=== PATIENT | female | born 1965 | race Two or more races ===

== ENCOUNTER 2017-06-18 00:22 | Inpatient (IN) | payer MEDICAID ==
[~2017-06-18] VITALS: Ht 154.9 cm; Wt 57.3 kg
[2017-06-18 04:49] LABS: Basophils # (auto) 0 uL; Basophils % (auto) 0.3 % (0.0-2.0); Eosinophils # (auto) 0 uL; Eosinophils % (auto) 0.1 % (0.0-7.0); Hemoglobin 10.3 g/dL (13.5-17.5); Lymphocytes # (auto) 0.6 uL; Monocytes # (auto) 0.4 uL; Nucleated Red Blood Cells % 0.1 %
[2017-06-18 04:53] LABS: Hematocrit 32.6 % (41.0-53.0); Lymphocytes % (auto) 7.6 % (10.0-50.0); Mean Corpuscular Hgb Conc. 31.7 g/dL (32.0-36.0); Mean Corpuscular Volume 77.6 fL (80.0-100.0); Monocytes % (auto) 5.2 % (0.0-12.0); Neutrophils # (auto) 6.5 uL; Neutrophils % (auto) 86.8 % (37.0-80.0); Platelet Count (auto) 316 10^3/uL (140-450); White Blood Cell 7.4 10^3/uL (4.4-10.8)
[2017-06-18 04:54] LABS: Mean Corpuscular Hemoglobin 25.2 pg (28.0-32.0); Red Cell Distribution Width 25.6 % (11.8-14.3)
[2017-06-18 05:10] LABS: Albumin 3.3 g/dL (3.4-5.0); Calcium 8.8 mg/dL (8.5-10.1); Magnesium 2.4 mg/dL (1.6-2.6); Potassium 3.5 mmol/L (3.5-5.1)
[2017-06-18 05:12] LABS: BUN/Creatinine Ratio 32.7
[2017-06-18 05:19] LABS: Bilirubin, Total 0.3 mg/dL (0.2-1.0); Total Protein 8.4 g/dL (6.4-8.2)
[2017-06-18] MEDS ORDERED: SODIUM CHLORIDE 0.9% 1,000 ML IVB ONE (06:50)
[2017-06-18] MEDS ORDERED: metroNIDAZOLE 500MG/100ML 100 ML IV ONE (07:00)
[2017-06-18] MEDS ORDERED: MORPHINE SULFATE 4 MG/ML SYR/VIAL IV ONE (07:00)
[2017-06-18] MEDS ORDERED: PROMETHAZINE HCL 25 MG/ML 1ML IV PRN (07:00)
[2017-06-18] MEDS ORDERED: cefTRIAXone 1GM/10ml StH20 or NS KIT IVpush IV ONE (07:00)
[2017-06-18] MEDS ORDERED: IOHEXOL 300 MG/ML 100ML BOTTLE IJ ONE (07:36)
[2017-06-18 07:58] LABS: INR 1.06 (0.9-1.15); Partial Thromboplastin Time 26.4 sec (22.64-33.71); Prothrombin Time 11.6 sec (9.37-12.3)
[2017-06-18 08:04] LABS: Urine Bacteria FEW /hpf (None Seen); Urine Blood TRACE /uL (Negative); Urine Hyaline Cast MOD /lpf (0 - 2); Urine Mucus FEW (None Seen); Urine Specific Gravity 1.028 (1.001-1.035); Urine WBC 11 /hpf (0 - 5)
[2017-06-18] MEDS ORDERED: ENALAPRILAT 1.25 MG/ML-1ML VIAL IV PRN (10:15)
[2017-06-18] MEDS ORDERED: SODIUM CHLORIDE 0.9% 1,000 ML IV SCH (10:17)
[2017-06-18] MEDS ORDERED: PANTOPRAZOLE 40 MG/10 ML VIAL IV ONE (10:30)
[2017-06-18] MEDS ORDERED: LIDOCAINE VISCOUS 2% 15ML UD PO ONE (10:30)
[2017-06-18] MEDS ORDERED: ONDANSETRON HCL 4 MG/2 ML VIAL IV PRN (10:30)
[2017-06-18] MEDS ORDERED: MORPHINE SULFATE 4 MG/ML SYR/VIAL IV PRN ×2 (10:30)
[2017-06-18] MEDS ORDERED: FAMOTIDINE (10MG/ML) 2ML VL IV ONE (10:30)
[2017-06-18] MEDS ORDERED: NITROGLYCERIN 0.4 MG SL TAB SL PRN (10:30)
[2017-06-18] MEDS ORDERED: GASTROGRAFIN 120 ML SOL ONE (11:09)
[2017-06-18] MEDS ORDERED: METF-370 PO (11:48)
[2017-06-18] MEDS: InsuLIN REG 1unit/0.01ml Soln (100units/ml) SC SCH ×2 (12:00→17:14)
[2017-06-18] MEDS: DEXTROSE (50%) 50ML SYRG IV PRN ×2 (12:14→17:13)
[2017-06-18] MEDS: ACCU-CHEK COMFORT CURVE STRIP VI SCH ×2 (12:22→17:14)
[2017-06-18] MEDS ORDERED: SODIUM CHLORIDE 0.9% 1,000 ML IV ONE (12:45)
[2017-06-18] MEDS ORDERED: D5W/SOD CHLO 0.9% 1,000 ML IV ONE (12:45)
[2017-06-18 13:00] VITALS: BP 88/57
[2017-06-18] MEDS: D5W/SOD CHLO 0.9% 1,000 ML IV SCH (13:15)
[2017-06-18] MEDS: metroNIDAZOLE 500MG/100ML 100 ML IV SCH ×2 (14:25→22:00)
[2017-06-18 16:53] VITALS: BP 95/58
[2017-06-18 22:00] VITALS: BP 88/54
[2017-06-19] VITALS (13 sets, daily range): BP systolic 77–113; BP diastolic 45–74
[2017-06-19] MEDS: ACCU-CHEK COMFORT CURVE STRIP VI SCH ×5 (00:26→23:21)
[2017-06-19] MEDS: DEXTROSE (50%) 50ML SYRG IV PRN ×4 (00:27→23:22)
[2017-06-19] MEDS: D5W/SOD CHLO 0.9% 1,000 ML IV SCH ×2 (01:29→05:20)
[2017-06-19] MEDS: InsuLIN REG 1unit/0.01ml Soln (100units/ml) SC SCH ×5 (06:00→23:22)
[2017-06-19] MEDS: metroNIDAZOLE 500MG/100ML 100 ML IV SCH ×3 (06:17→21:02)
[2017-06-19 06:19] LABS: Basophils # (auto) 0 uL; Basophils % (auto) 0.3 % (0.0-2.0); Eosinophils # (auto) 0.1 uL; Hematocrit 24.6 % (36.0-46.0); Lymphocytes # (auto) 0.3 uL; Monocytes # (auto) 0.2 uL
[2017-06-19 06:22] LABS: Eosinophils % (auto) 2.2 % (0.0-7.0); Hemoglobin 7.6 g/dL (12.2-16.2); Lymphocytes % (auto) 7.3 % (10.0-50.0); Mean Corpuscular Hemoglobin 24.7 pg (28.0-32.0); Mean Corpuscular Hgb Conc. 30.9 g/dL (32.0-36.0); Mean Corpuscular Volume 79.9 fL (80.0-100.0); Neutrophils # (auto) 3.6 uL; Neutrophils % (auto) 85.2 % (37.0-80.0); Platelet Count (auto) 220 10^3/uL (140-450); Red Blood Cells 3.08 10^6/uL (4.0-5.20); White Blood Cell 4.2 10^3/uL (4.4-10.8)
[2017-06-19 06:27] LABS: Red Cell Distribution Width 25.3 % (11.8-14.3)
[2017-06-19 06:29] LABS: Albumin 1.9 g/dL (3.4-5.0); BUN/Creatinine Ratio 25.6; Bilirubin, Total 0.2 mg/dL (0.2-1.0); Calcium 6.7 mg/dL (8.5-10.1); Total Protein 5.8 g/dL (6.4-8.2)
[2017-06-19 06:31] LABS: Potassium 2.6 mmol/L (3.5-5.1)
[2017-06-19] MEDS ORDERED: POTASSIUM CHL 10% (20 MEQ/15ML) 15ml ORAL SOLN GT ONE (07:00)
[2017-06-19] MEDS ORDERED: SOD CHLO IV SCH (08:45)
[2017-06-19] MEDS ORDERED: D5 IV SCH (08:45)
[2017-06-19] MEDS ORDERED: POTASSIUM CHLORIDE IV SCH (08:45)
[2017-06-19 08:46] LABS: Basophils # (auto) 0 uL; Eosinophils # (auto) 0.1 uL; Lymphocytes # (auto) 0.4 uL; Monocytes # (auto) 0.2 uL; White Blood Cell 4.1 10^3/uL (4.4-10.8)
[2017-06-19 08:48] LABS: Basophils % (auto) 0.3 % (0.0-2.0); Eosinophils % (auto) 2.4 % (0.0-7.0); Hematocrit 24.9 % (36.0-46.0); Hemoglobin 7.8 g/dL (12.2-16.2); Lymphocytes % (auto) 8.8 % (10.0-50.0); Mean Corpuscular Hemoglobin 24.7 pg (28.0-32.0); Mean Corpuscular Hgb Conc. 31.5 g/dL (32.0-36.0); Mean Corpuscular Volume 78.4 fL (80.0-100.0); Monocytes % (auto) 4.6 % (0.0-12.0); Neutrophils # (auto) 3.5 uL; Neutrophils % (auto) 83.9 % (37.0-80.0); Nucleated Red Blood Cells % 0.1 %; Platelet Count (auto) 225 10^3/uL (140-450); Red Blood Cells 3.18 10^6/uL (4.0-5.20)
[2017-06-19 08:50] LABS: Red Cell Distribution Width 24.8 % (11.8-14.3)
[2017-06-19 09:06] LABS: Albumin 1.9 g/dL (3.4-5.0); Bilirubin, Total 0.2 mg/dL (0.2-1.0); Calcium 6.7 mg/dL (8.5-10.1); Total Protein 5.9 g/dL (6.4-8.2)
[2017-06-19 09:14] LABS: Potassium 2.7 mmol/L (3.5-5.1)
[2017-06-19] MEDS ORDERED: POTASSIUM CHLORIDE 40 MEQ, LIDOCAINE 1% (LOCAL ANESTH.) 4 ML in SODIUM CHL 0.9% 100 ML IV ONE (09:45)
[2017-06-19] MEDS ORDERED: PANTOPRAZOLE 40 MG/10 ML VIAL IV SCH (10:00)
[2017-06-19] MEDS: cefTRIAXone 1GM/10ml IVPUSH 10 ML IV SCH (10:05)
[2017-06-19] MEDS: FAMOTIDINE (10MG/ML) 2ML VL IV SCH (10:05)
[2017-06-19] MEDS: D5W/SOD CHL 0.45%/KCL 40MEQ 1,000 ML IV SCH (18:48)
[2017-06-19] MEDS: PANTOPRAZOLE 40 MG/10 ML VIAL IV SCH (21:02)
[2017-06-20 01:30] VITALS: BP 105/64
[2017-06-20 04:00] VITALS: BP 102/65
[2017-06-20 05:20] LABS: Basophils # (auto) 0 uL; Eosinophils # (auto) 0.1 uL; Hemoglobin 9.9 g/dL (12.2-16.2); Lymphocytes # (auto) 0.4 uL; Monocytes # (auto) 0.3 uL; Neutrophils # (auto) 2.8 uL; Nucleated Red Blood Cells % 0.1 %; White Blood Cell 3.6 10^3/uL (4.4-10.8)
[2017-06-20 05:22] LABS: Basophils % (auto) 0.5 % (0.0-2.0); Eosinophils % (auto) 3.5 % (0.0-7.0); Hematocrit 30.6 % (36.0-46.0); Lymphocytes % (auto) 11.3 % (10.0-50.0); Mean Corpuscular Hemoglobin 25.8 pg (28.0-32.0); Mean Corpuscular Hgb Conc. 32.3 g/dL (32.0-36.0); Mean Corpuscular Volume 79.8 fL (80.0-100.0); Neutrophils % (auto) 76.7 % (37.0-80.0); Platelet Count (auto) 215 10^3/uL (140-450); Red Blood Cells 3.83 10^6/uL (4.0-5.20)
[2017-06-20 05:27] LABS: Red Cell Distribution Width 22.1 % (11.8-14.3)
[2017-06-20] MEDS: DEXTROSE (50%) 50ML SYRG IV PRN (05:34)
[2017-06-20 05:41] LABS: Albumin 1.9 g/dL (3.4-5.0); BUN/Creatinine Ratio 20.6; Bilirubin, Total 0.4 mg/dL (0.2-1.0); Calcium 7.2 mg/dL (8.5-10.1); Potassium 3.4 mmol/L (3.5-5.1); Total Protein 5.9 g/dL (6.4-8.2)
[2017-06-20] MEDS: D5W/SOD CHL 0.45%/KCL 40MEQ 1,000 ML IV SCH (05:43)
[2017-06-20] MEDS: InsuLIN REG 1unit/0.01ml Soln (100units/ml) SC SCH ×3 (05:45→17:48)
[2017-06-20] MEDS: ACCU-CHEK COMFORT CURVE STRIP VI SCH ×3 (05:45→17:22)
[2017-06-20] MEDS: metroNIDAZOLE 500MG/100ML 100 ML IV SCH ×3 (05:45→21:18)
[2017-06-20 07:30] VITALS: BP 113/70
[2017-06-20] MEDS: FAMOTIDINE (10MG/ML) 2ML VL IV SCH (09:30)
[2017-06-20] MEDS: PANTOPRAZOLE 40 MG/10 ML VIAL IV SCH ×2 (09:30→21:19)
[2017-06-20] MEDS: cefTRIAXone 1GM/10ml IVPUSH 10 ML IV SCH (09:30)
[2017-06-20] MEDS: DEXTROSE 10% 1,000 ML IV SCH (11:14)
[2017-06-20] MEDS: POTASSIUM CHL 10% (20 MEQ/15ML) 15ml ORAL SOLN GT SCH ×2 (11:15→21:18)
[2017-06-20 11:49] VITALS: BP 124/80
[2017-06-20 15:50] VITALS: BP 121/73
[2017-06-20 19:50] VITALS: BP 114/72
[2017-06-21] VITALS: BP 120/76
[2017-06-21] MEDS: DEXTROSE 10% 1,000 ML IV SCH ×3 (02:45→14:22)
[2017-06-21 04:15] VITALS: BP 104/68
[2017-06-21] MEDS: metroNIDAZOLE 500MG/100ML 100 ML IV SCH ×3 (05:54→21:41)
[2017-06-21] MEDS: ACCU-CHEK COMFORT CURVE STRIP VI SCH ×4 (05:54→18:15)
[2017-06-21 05:59] LABS: Basophils # (auto) 0 uL; Eosinophils # (auto) 0.2 uL; Lymphocytes # (auto) 0.6 uL; Monocytes # (auto) 0.3 uL; Neutrophils # (auto) 2.9 uL
[2017-06-21] MEDS: InsuLIN REG 1unit/0.01ml Soln (100units/ml) SC SCH ×4 (06:00→18:00)
[2017-06-21 06:02] LABS: Basophils % (auto) 0.6 % (0.0-2.0); Eosinophils % (auto) 4.2 % (0.0-7.0); Hemoglobin 10.8 g/dL (12.2-16.2); Lymphocytes % (auto) 14.1 % (10.0-50.0); Mean Corpuscular Hemoglobin 25.7 pg (28.0-32.0); Mean Corpuscular Hgb Conc. 31.9 g/dL (32.0-36.0); Mean Corpuscular Volume 80.5 fL (80.0-100.0); Monocytes % (auto) 7.1 % (0.0-12.0); Nucleated Red Blood Cells % 0.1 %; Platelet Count (auto) 190 10^3/uL (140-450); Red Blood Cells 4.22 10^6/uL (4.0-5.20); White Blood Cell 3.9 10^3/uL (4.4-10.8)
[2017-06-21 06:10] LABS: Red Cell Distribution Width 22.5 % (11.8-14.3)
[2017-06-21 06:24] LABS: Albumin 1.9 g/dL (3.4-5.0); BUN/Creatinine Ratio 13.7; Bilirubin, Total 0.2 mg/dL (0.2-1.0); Calcium 7.3 mg/dL (8.5-10.1); Potassium 4.3 mmol/L (3.5-5.1); Total Protein 6.2 g/dL (6.4-8.2)
[2017-06-21 07:30] VITALS: BP 124/74
[2017-06-21] MEDS: FAMOTIDINE (10MG/ML) 2ML VL IV SCH (10:40)
[2017-06-21] MEDS: PANTOPRAZOLE 40 MG/10 ML VIAL IV SCH ×2 (10:40→21:41)
[2017-06-21] MEDS: POTASSIUM CHL 10% (20 MEQ/15ML) 15ml ORAL SOLN GT SCH ×2 (10:41→21:41)
[2017-06-21] MEDS: cefTRIAXone 1GM/10ml IVPUSH 10 ML IV SCH (10:45)
[2017-06-21 12:02] VITALS: BP 120/71
[2017-06-21 16:00] VITALS: BP 130/82
[2017-06-21 19:54] VITALS: BP 118/82
[2017-06-22] MEDS: ACCU-CHEK COMFORT CURVE STRIP VI SCH ×3 (00:13→12:28)
[2017-06-22] MEDS: DEXTROSE 10% 1,000 ML IV SCH (04:29)
[2017-06-22 05:31] LABS: Basophils # (auto) 0 uL; Eosinophils # (auto) 0.2 uL; Hemoglobin 11.5 g/dL (12.2-16.2); Lymphocytes # (auto) 0.7 uL; Monocytes # (auto) 0.3 uL; Nucleated Red Blood Cells % 0.2 %; White Blood Cell 4.1 10^3/uL (4.4-10.8)
[2017-06-22 05:35] LABS: Basophils % (auto) 0.9 % (0.0-2.0); Hematocrit 35.9 % (36.0-46.0); Lymphocytes % (auto) 16.5 % (10.0-50.0); Mean Corpuscular Hemoglobin 25.4 pg (28.0-32.0); Mean Corpuscular Hgb Conc. 32.1 g/dL (32.0-36.0); Mean Corpuscular Volume 79.3 fL (80.0-100.0); Monocytes % (auto) 8.5 % (0.0-12.0); Neutrophils # (auto) 2.9 uL; Neutrophils % (auto) 70.1 % (37.0-80.0); Platelet Count (auto) 230 10^3/uL (140-450); Red Blood Cells 4.53 10^6/uL (4.0-5.20)
[2017-06-22] MEDS: metroNIDAZOLE 500MG/100ML 100 ML IV SCH (05:40)
[2017-06-22] MEDS: InsuLIN REG 1unit/0.01ml Soln (100units/ml) SC SCH ×3 (05:40→12:00)
[2017-06-22 05:48] LABS: Red Cell Distribution Width 22.5 % (11.8-14.3)
[2017-06-22 05:57] LABS: Albumin 1.9 g/dL (3.4-5.0); BUN/Creatinine Ratio 8.8; Calcium 7.3 mg/dL (8.5-10.1); Potassium 4.5 mmol/L (3.5-5.1)
[2017-06-22 05:59] LABS: Bilirubin, Total 0.2 mg/dL (0.2-1.0); Total Protein 6.1 g/dL (6.4-8.2)
[2017-06-22 08:00] VITALS: BP 108/73
[2017-06-22] MEDS: cefTRIAXone 1GM/10ml IVPUSH 10 ML IV SCH (09:00)
[2017-06-22] MEDS: POTASSIUM CHL 10% (20 MEQ/15ML) 15ml ORAL SOLN GT SCH (09:55)
[2017-06-22] MEDS: FAMOTIDINE (10MG/ML) 2ML VL IV SCH (09:55)
[2017-06-22] MEDS: PANTOPRAZOLE 40 MG/10 ML VIAL IV SCH (09:55)
[2017-06-22 11:05] VITALS: BP 101/72
[2017-06-22 11:55] VITALS: BP 113/76
== END 2017-06-22 12:00 | disposition home or self-care (01) | DRG 871 ==
LOC: ER 00:22 → EDSEX 00:22 → TELE 00:23 → TELE-WESTW 11:35 → DOU IN ICU 06-19 15:08
PROVIDERS: ADMIT Internal Medicine; ATTEND Family Medicine
PROC: 30233N1 Transfusion of Nonautologous Red Blood Cells into Peripheral Vein, Percutaneous Approach (ICD-10-PCS; principal; 2017-06-19)
DX: A41.9 Sepsis, unspecified organism (principal); R65.21 Severe sepsis with septic shock; E44.0 Moderate protein-calorie malnutrition; N39.0 Urinary tract infection, site not specified; K91.30 Postprocedural intestinal obstruction, unspecified as to partial versus complete; I13.10 Hypertensive heart and chronic kidney disease without heart failure, with stage 1 through stage 4 chronic kidney disease, or unspecified chronic kidney disease; D50.0 Iron deficiency anemia secondary to blood loss (chronic); E11.21 Type 2 diabetes mellitus with diabetic nephropathy; E11.22 Type 2 diabetes mellitus with diabetic chronic kidney disease; E11.649 Type 2 diabetes mellitus with hypoglycemia without coma; E87.6 Hypokalemia; I45.10 Unspecified right bundle-branch block; N18.9 Chronic kidney disease, unspecified; Z79.4 Long term (current) use of insulin
CPT/HCPCS: 36415; 51702; 71046; 74018; 74176; 74177; 76705; 80053; 81001; 82150; 82270; 82962; 83036; 83540; 83690; 83735; 84443; 84484; 85025; 85610; 85730; 86850; 86900; 86901; 86920; 87040; 87045; 87081; 87086; 87493; 87899; 93005; 93306; 94761; 96361; 96365; 96375; C9113; J2001; J3490; J7042; J7060

== ENCOUNTER 2018-11-02 15:18 | Inpatient (IN) | payer MEDICAID ==
[~2018-11-02] VITALS: Ht 154.9 cm; Wt 51.5 kg
[~2018-11-02 15:18] MED LIST: METF-370 PO; METR500T14 PO; PANT40TA2 PO; TRAM50TA2 PO
[2018-11-02 15:55] LABS: Basophils # (auto) 0 uL; Eosinophils # (auto) 0 uL; Hematocrit 34.6 % (36.0-46.0); Hemoglobin 10.7 g/dL (12.2-16.2); Lymphocytes # (auto) 0.6 uL; Monocytes # (auto) 0.2 uL; White Blood Cell 3.9 10^3/uL (4.4-10.8)
[2018-11-02 15:57] LABS: Basophils % (auto) 0.4 % (0.0-2.0); Eosinophils % (auto) 0.3 % (0.0-7.0); Lymphocytes % (auto) 16.1 % (10.0-50.0); Mean Corpuscular Hemoglobin 23.3 pg (28.0-32.0); Mean Corpuscular Hgb Conc. 30.9 g/dL (32.0-36.0); Mean Corpuscular Volume 75.3 fL (80.0-100.0); Neutrophils # (auto) 3.1 uL; Neutrophils % (auto) 79.2 % (37.0-80.0); Nucleated Red Blood Cells % 0.5 %; Platelet Count (auto) 325 10^3/uL (140-450)
[2018-11-02 16:05] LABS: Red Cell Distribution Width 24.6 % (11.8-14.3)
[2018-11-02 16:10] LABS: BUN/Creatinine Ratio 48.7; Calcium 8.3 mg/dL (8.5-10.1); Potassium 4.2 mmol/L (3.5-5.1)
[2018-11-02 16:13] LABS: Bilirubin, Total 0.2 mg/dL (0.2-1.0); Total Protein 6.9 g/dL (6.4-8.2)
[2018-11-02] MEDS ORDERED: ONDANSETRON HCL 4 MG/2 ML VIAL IV ONE (16:45)
[2018-11-02] MEDS ORDERED: MORPHINE SULFATE 4 MG/ML SYR/VIAL IV ONE (16:45)
[2018-11-02 17:57] LABS: Amylase 145 U/L (25-115); Lipase 227 U/L (73-393)
[2018-11-02] MEDS ORDERED: FLEET ENEMA(ADULT) 135 ML PR ONE (18:15)
[2018-11-02] MEDS ORDERED: ONDANSETRON HCL 4 MG/2 ML VIAL IV PRN (19:45)
[2018-11-02] MEDS ORDERED: ACETAMINOPHEN 500 MG TAB PO PRN (19:45)
[2018-11-02] MEDS ORDERED: MORPHINE SULF INJ 2 MG/ML SYRINGE 1ML IV PRN (19:45)
[2018-11-02] MEDS ORDERED: NITROGLYCERIN 0.4 MG SL TAB SL PRN (19:45)
[2018-11-02] MEDS ORDERED: METOCLOPRAMIDE HCL 5MG/ml INJ 2ml VIAL IV PRN (19:45)
[2018-11-02] MEDS: SODIUM CHLORIDE 0.9% 1,000 ML IV SCH (20:17)
[2018-11-02 20:47] VITALS: BP 121/71
--- NOTE | 2018-11-02 20:47 | NUR ---
MS admit from ER NICK TAVARES admitted to MS after SBAR received. Patient oriented to FABIOLA GRIFFITHS RN primary RN, unit, room, bed, and unit policies regarding patient care and visiting hours. Patient weighed by bedscale and encouraged to call if they need something. All questions and concerns addressed, patient verbalized understanding.
[2018-11-02] MEDS: LACTULOSE 20Gm/30ML SOLN PO SCH (21:39)
--- NOTE | 2018-11-02 21:39 | NUR ---
Patient refused scheduled medications: RN informed patient of her scheduled night time medications and patient refused both her 2200 lactulose and colace d/t patient stating she had a BM today down in the ER and passed stool with no difficulty. Patient informed RN that she will take her lactulose in the morning but not tonight and just wants to rest tonight without having to use the restroom all night because of a laxative. RN provided teaching to patient in regards to scheduled medications and their indication/significance related to her diagnosis. Patient verbalized understanding and wished to proceed with her earlier statement and demands. Patient resting comfortably in bed with no discomfort or distress noted.
[2018-11-02 21:46] VITALS: BP 121/71
[2018-11-02] MEDS: DOCUSATE SOD 100 MG CAP PO SCH (21:55)
[2018-11-03] MEDS: LACTULOSE 20Gm/30ML SOLN PO SCH ×6 (01:39→21:35)
--- NOTE | 2018-11-03 01:39 | NUR ---
Patient refused scheduled medication: RN informed patient of her scheduled night time medications and patient refused her 0200 lactulose d/t just having a large BM 5 minutes ago. Patient informed RN that she will take her lactulose in the morning but not the rest of the tonight and just wants to sleep. RN provided teaching to patient in regards to scheduled medications and their indication/significance related to her diagnosis. Patient verbalized understanding and wished to proceed with her earlier statement and demands. Patient resting comfortably in bed with no discomfort or distress noted.
[2018-11-03] MEDS: SODIUM CHLORIDE 0.9% 1,000 ML IV SCH (03:15)
[2018-11-03 04:30] VITALS: BP 101/65
--- NOTE | 2018-11-03 05:32 | NUR ---
Patient refused scheduled medication: RN informed patient of her scheduled night time medications and patient refused her 0600 lactulose d/t patient already ambulating to the restroom to have a BM. Patient informed RN that she will take her lactulose for the next scheduled morning dose but not the 0600 dose. RN provided teaching to patient in regards to scheduled medications and their indication/significance related to her diagnosis. Patient verbalized understanding and wished to proceed with her earlier statement and demands. Patient was helped back to her bed and was resting comfortably in bed with no discomfort or distress noted.
--- NOTE | 2018-11-03 07:35 | NUR ---
Patient in bed, awake, oriented x4, on O2 at 2 LPM. No acute distress noted.
--- NOTE | 2018-11-03 07:40 | NUR ---
O2 Sat = 84% on O2 at 2 LPM.
--- NOTE | 2018-11-03 07:41 | NUR ---
O2 at 97% to 99% on O2 at 4 LPM. Patient has dry, thick fingers.
[2018-11-03 07:48] LABS: BUN/Creatinine Ratio 66.7; Calcium 7.9 mg/dL (8.5-10.1); Potassium 4.1 mmol/L (3.5-5.1)
[2018-11-03 09:00] VITALS: BP 92/64
[2018-11-03] MEDS ORDERED: HEPARIN SODIUM (PORCINE) 5000 UNITS/ML 1ML VIAL SC ONE (10:45)
[2018-11-03] MEDS: D5W/SOD CHLO 0.9% 1,000 ML IV SCH (10:49)
--- NOTE | 2018-11-03 10:58 | NUR ---
ANGEL Diop translated for patient in Chinese. Patient okay to take the medications as ordered.
[2018-11-03] MEDS: FAMOTIDINE 20 MG TAB PO SCH (10:59)
[2018-11-03] MEDS: DOCUSATE SOD 100 MG CAP PO SCH ×2 (10:59→21:36)
--- NOTE | 2018-11-03 11:05 | NUR ---
Dr. Pryor at bedside for GI Consult. to start patient on Clear Liquid Diet, ordered to obtain medical records from [facility] for medical records of Endoscopy.
--- NOTE | 2018-11-03 11:05 | NUR ---
Patient stated she had six bowel movements today.
--- NOTE | 2018-11-03 12:20 | NUR ---
Daughter Cass at bedside said patient was here last month, that River Golden did a procedure, but the patient's name registered was Mariam Herrmann because "her father was so nervous, he forgot Anne."
--- NOTE | 2018-11-03 12:31 | NUR ---
Request to obtain medical records from [facility] sent via ) two times. P# [phone] ext# [phone].
--- NOTE | 2018-11-03 12:42 | NUR ---
Paged Heidy Golden
--- NOTE | 2018-11-03 12:45 | NUR ---
Heidy Golden called back. made aware [facility] records for the patient under the name Mariam Herrmann (: 1965), daughter Cass said her father was so nervous when patient got admitted he forgot to register the surname Omid; Dr. Pryor did upper Endoscopy on September 27, 2018 and Vikram Kelley discharged the patient on September 29, 2018 as per medical records.
[2018-11-03 17:00] VITALS: BP 106/69
--- NOTE | 2018-11-03 19:00 | NUR ---
Opening Shift Note Assumed care of patient, awake and alert. No S/S of distress/SOB or pain. Instructed on POC and to call for assist PRN, will continue to monitor for changes Q1hr and PRN.
[2018-11-03] MEDS: HEPARIN SODIUM (PORCINE) 5000 UNITS/ML 1ML VIAL SC SCH (21:36)
[2018-11-03 22:00] VITALS: BP 109/74
[2018-11-04] MEDS: LACTULOSE 20Gm/30ML SOLN PO SCH ×3 (02:00→09:50)
[2018-11-04 04:30] VITALS: BP 129/76
--- NOTE | 2018-11-04 05:56 | NUR ---
IV removal IV to left arm infiltrated. IV to left arm DC'd with sterile technique, catheter fully intact. Pressure dressing applied to site. Patient tolerated procedure well.
--- NOTE | 2018-11-04 05:58 | NUR ---
IV insertion IV access obtained to right wrist, via clean sterile technique by inserting 22 gauge catheter at first attempt. IV secured properly. No trauma to site. Patient tolerated procedure well.
[2018-11-04] MEDS: D5W/SOD CHLO 0.9% 1,000 ML IV SCH (06:00)
[2018-11-04 08:19] VITALS: BP 115/69
[2018-11-04] MEDS: DOCUSATE SOD 100 MG CAP PO SCH (09:50)
[2018-11-04] MEDS: FAMOTIDINE 20 MG TAB PO SCH (09:51)
[2018-11-04] MEDS: HEPARIN SODIUM (PORCINE) 5000 UNITS/ML 1ML VIAL SC SCH (09:51)
--- NOTE | 2018-11-04 14:00 | NUR ---
Discharge instructions given as ordered. Encourage to follow up with PMD as instructed. All questions and concerns addressed. Patient verbalized understanding. Medication reconciliation form completed and copy given to patient. Home medications held in Pharmacy returned to patient, and needed vaccines given. IV removed with catheter intact, pressure dressing applied. Patient taken to vehicle via wheelchair with all personal belongings, accompanied by staff and family member. No distress noted at time of departure.
== END 2018-11-04 15:04 | disposition home or self-care (01) | DRG 247 ==
LOC: ER 15:18 → OVERFLOW 15:19 → EAST 20:50
PROVIDERS: ADMIT Nurse Practitioner Acute Care; ATTEND Internal Medicine Nephrology
DX: K56.41 Fecal impaction (principal); D50.9 Iron deficiency anemia, unspecified; E11.9 Type 2 diabetes mellitus without complications; I10 Essential (primary) hypertension; G89.29 Other chronic pain; K21.9 Gastro-esophageal reflux disease without esophagitis; R63.4 Abnormal weight loss; K44.9 Diaphragmatic hernia without obstruction or gangrene; Z79.84 Long term (current) use of oral hypoglycemic drugs; Z86.010 Personal history of colon polyps; Z68.21 Body mass index [BMI] 21.0-21.9, adult
CPT/HCPCS: 36415; 74176; 80048; 80053; 82140; 82150; 82378; 83690; 83735; 84484; 85025; 86301; 86304; 93005; 94761; 96365; 96375; G0378; J2405; J7042

== ENCOUNTER 2018-12-30 08:21 | Inpatient (IN) | payer MEDICAID ==
[2018-12-29 19:30] VITALS: BP 98/62
[~2018-12-30] VITALS: Ht 154.9 cm; Wt 47.9 kg
[2018-12-30 09:17] LABS: Basophils # (auto) 0 uL; Eosinophils # (auto) 0 uL; Hemoglobin 7.2 g/dL (12.2-16.2); Mean Corpuscular Hemoglobin 20.3 pg (28.0-32.0); Monocytes # (auto) 0.8 uL; Neutrophils % (auto) 78.1 % (37.0-80.0); Red Cell Distribution Width 18.8 % (11.8-14.3)
[2018-12-30 09:19] LABS: Basophils % (auto) 0.3 % (0.0-2.0); Eosinophils % (auto) 0.4 % (0.0-7.0); Hematocrit 24.2 % (36.0-46.0); Mean Corpuscular Hgb Conc. 29.6 g/dL (32.0-36.0); Mean Corpuscular Volume 68.6 fL (80.0-100.0); Monocytes % (auto) 9.2 % (0.0-12.0); Neutrophils # (auto) 6.6 uL; Nucleated Red Blood Cells % 0.5 %; Red Blood Cells 3.53 10^6/uL (4.0-5.20); White Blood Cell 8.5 10^3/uL (4.4-10.8)
[2018-12-30 09:21] LABS: Platelet Count (auto) 575 10^3/uL (140-450)
[2018-12-30 09:31] LABS: Alanine Aminotransferase 20 U/L (13-56); Albumin 3.2 g/dL (3.4-5.0); Anion Gap 10 (5-15); Blood Urea Nitrogen 33 mg/dL (7-18); Calcium 8.5 mg/dL (8.5-10.1); Carbon Dioxide 25 mmol/L (21-32); Chloride 105 mmol/L (98-107); Glucose 64 mg/dL (74-106); Magnesium 2.4 mg/dL (1.6-2.6); Potassium 3.6 mmol/L (3.5-5.1); Sodium 140 mmol/L (136-145)
[2018-12-30 09:37] LABS: Alkaline Phosphatase 88 U/L (45-117); Aspartate Aminotransferase 15 U/L (15-37); BUN/Creatinine Ratio 43.4; Bilirubin, Total 0.3 mg/dL (0.2-1.0); GFR African American 103 mL/min; GFR Non-African American 85 mL/min; Total Protein 7.7 g/dL (6.4-8.2)
[2018-12-30] MEDS ORDERED: SODIUM CHLORIDE 0.9% 1,000 ML IVB ONE (12:03)
[2018-12-30] MEDS ORDERED: ONDANSETRON HCL 4 MG/2 ML VIAL IV ONE (12:15)
[2018-12-30 12:26] LABS: Amylase 110 U/L (25-115); Lipase 120 U/L (73-393)
[2018-12-30] MEDS ORDERED: MORPHINE SULF INJ 2 MG/ML SYRINGE 1ML IV ONE (12:30)
[2018-12-30 13:09] LABS: INR 0.95 (0.9-1.15); Partial Thromboplastin Time 23.8 sec (23.64-32.05)
[2018-12-30] MEDS ORDERED: DEXTROSE (50%) 50ML SYRG IV ONE ×3 (13:30→23:30)
[2018-12-30] MEDS ORDERED: PANTOPRAZOLE 40 MG/10 ML VIAL INJ IV ONE (13:30)
[2018-12-30] MEDS ORDERED: NITROGLYCERIN 0.4 MG SL TAB SL PRN (15:45)
[2018-12-30] MEDS ORDERED: MORPHINE SULF INJ 2 MG/ML SYRINGE 1ML IV PRN (15:45)
[2018-12-30] MEDS ORDERED: MORPHINE SULFATE 4 MG/ML SYR/VIAL IV PRN (15:45)
[2018-12-30] MEDS ORDERED: ONDANSETRON HCL 4 MG/2 ML VIAL IV PRN (15:45)
[2018-12-30] MEDS ORDERED: DEXTROSE 50% SYRINGE 50 ML IV ONE (17:57)
[2018-12-30] MEDS: D5W/SOD CHL 0.45%/KCL 20MEQ 1,000 ML IV SCH (18:25)
--- NOTE | 2018-12-30 19:00 | NUR ---
Telemetry admit from ER NICK TAVARES admitted to Telemetry unit after SBAR received. Patient oriented to EBENEZER ABBASI RN primary RN, unit, room, bed, and unit policies regarding patient care and visiting hours. Patient now on continuous telemetry monitoring, tele box # 6 and telemetry reading on arrival to unit is sinus rhythm at 70 bpm. Patient weighed by bedscale and encouraged to call if they need something. Family is at bedside. All questions and concerns addressed, patient verbalized understanding. Patient is A/O x4, ng tube is to the right nare and set to low continuous suction, it is currently draining light brown drainage with small particles. Skin is intact, the abdomen is distended with hypoactive bowel tones. She is on room air. Complaints of pain to the abdomen when palpated 5/0-10, pain management options discussed. Will continue to monitor patient hourly and prn.
[2018-12-30 19:50] VITALS: BP 98/62
[2018-12-30 21:19] VITALS: BP 87/57
--- NOTE | 2018-12-30 21:38 | NUR ---
First blood transfusion started. VITAL SIGNS ARE BP- 87/57, HR- 71, T- 98.1 degrees, O2 SAT- 99% RR- 18 bpm. The blood is infusing to the NIRMALA 22g IV, flushes well. This RN is at the patient's bedside for monitoring during the first part of the transfusion.
[2018-12-30 21:53] VITALS: BP 92/59
--- NOTE | 2018-12-30 21:53 | NUR ---
FIRST 15 MIN VITAL SIGN AFTER BLOOD TRANSFUSION STARTED BP- 95/59, T- 98.1, RR- 16 bpm, o2 sat- 97%, hr- 73 bpm. Patient states she is fine and does not feel any adverse reaction from the blood. Will continue to monitor patient.
[2018-12-30 22:26] VITALS: BP 147/77
--- NOTE | 2018-12-30 22:49 | NUR ---
Critical lab value received Blood glucose was 47. Will page hospitalist.
--- NOTE | 2018-12-30 22:51 | NUR ---
Assessed patient's blood glucose ] Accucheck was 38. Patient is resting in bed verbal and oriented. She states she feels cold. Waiting for hospitalist to call back.
--- NOTE | 2018-12-30 23:19 | NUR ---
Hospitalist called back Orders received to give D 50 1 amp one time IVP. Will carry out order and continue to monitor patient.
[2018-12-31] VITALS (10 sets, daily range): BP systolic 88–114; BP diastolic 53–69
--- NOTE | 2018-12-31 00:12 | NUR ---
Transfusion Ended VITAL SIGNS: BP-92/62, T- 97.7, O2 SAT- 100%, RR- 16 bpm, HR- 74 bpm. Patient is resting in bed, NS is infusing. No complaints of distress. Will continue to monitor patient.
[2018-12-31] MEDS ORDERED: METF-370 PO (00:15)
[2018-12-31] MEDS: FAMOTIDINE (10MG/ML) 2ML VL IV SCH ×3 (00:56→23:10)
[2018-12-31] MEDS: METOCLOPRAMIDE HCL 5MG/ml INJ 2ml VIAL IV SCH ×4 (00:57→23:09)
[2018-12-31] MEDS: D5W/SOD CHL 0.45%/KCL 20MEQ 1,000 ML IV SCH ×2 (01:45→11:45)
--- NOTE | 2018-12-31 03:51 | NUR ---
SECOND UNIT TRANSFUSION STARTED BY CHARGE NURSE DELLA.
--- NOTE | 2018-12-31 04:16 | NUR ---
LAB came to draw blood for a CBC and CMP, the blood transfusion was running, they will come back at a later time to draw.
--- NOTE | 2018-12-31 06:54 | NUR ---
SECOND UNIT TRANSFUSED. PATIENT IS RESTING IN BED.
--- NOTE | 2018-12-31 07:33 | NUR ---
Endorsed care to dayshift NEELIMA Longoria She is aware of post hour transfusion vital signs.
--- NOTE | 2018-12-31 07:50 | NUR ---
Opening Shift Note Assumed care of patient, awake and alert. No S/S of distress/SOB or pain. NGT on continuous suction. Instructed on POC and to call for assist PRN, will continue to monitor for changes Q1hr and PRN. NPO status maintained.
[2018-12-31] MEDS ORDERED: GASTROGRAFIN 120 ML SOL ONE (08:15)
--- NOTE | 2018-12-31 08:20 | NUR ---
Transfusion Ended at 0654 as per shift lab technician. Ended transfusion at 0820 in transfusion documentation, was unable to update time to time it actually ended.
[2018-12-31 08:37] LABS: Basophils # (auto) 0 uL; Eosinophils # (auto) 0 uL; Eosinophils % (auto) 0.2 % (0.0-7.0); Lymphocytes # (auto) 0.4 uL; Monocytes # (auto) 0.3 uL; White Blood Cell 6.1 10^3/uL (4.4-10.8)
[2018-12-31 08:38] LABS: Basophils % (auto) 0.1 % (0.0-2.0); Hemoglobin 9.5 g/dL (12.2-16.2); Lymphocytes % (auto) 7.1 % (10.0-50.0); Mean Corpuscular Hemoglobin 23.5 pg (28.0-32.0); Mean Corpuscular Hgb Conc. 30.5 g/dL (32.0-36.0); Mean Corpuscular Volume 77.1 fL (80.0-100.0); Monocytes % (auto) 5.4 % (0.0-12.0); Neutrophils # (auto) 5.3 uL; Neutrophils % (auto) 87.2 % (37.0-80.0); Nucleated Red Blood Cells % 0.3 %; Platelet Count (auto) 345 10^3/uL (140-450); Red Blood Cells 4.02 10^6/uL (4.0-5.20)
[2018-12-31 08:40] LABS: Red Cell Distribution Width 21.1 % (11.8-14.3)
[2018-12-31 09:07] LABS: Albumin 2.6 g/dL (3.4-5.0); Calcium 7.8 mg/dL (8.5-10.1)
[2018-12-31 09:10] LABS: Bilirubin, Total 1.2 mg/dL (0.2-1.0); Total Protein 6.1 g/dL (6.4-8.2)
[2018-12-31] MEDS ORDERED: DEXTROSE (50%) 50ML SYRG IV ONE ×3 (09:30→16:15)
--- NOTE | 2018-12-31 10:15 | NUR ---
Serum Glucose Low Serum Glucose 42 Accu Check - LO x 2 Received verbal orders from Dr. Aranda. Orders verified and entered in eMAR. Accu Check 5 minutes post Dextrose 57 Rechecked 30minutes after 105. Will continue to monitor patient. Call light placed within reach and patient encouraged to call as needed.
[2018-12-31] MEDS: ACCU-CHEK COMFORT CURVE STRIP VI SCH ×3 (14:22→22:41)
[2018-12-31] MEDS ORDERED: DEXTROSE 10% 1,000 ML IV SCH (14:30)
--- NOTE | 2018-12-31 14:30 | NUR ---
POC Glucose LO Accu Check LO x 2. Paged hospitalist assigned and awaiting call back. Dr. Aranda is currently on unit, notified her of critical and received orders and entered in eMAR and carried out. Patient is awake and alert, nonsymptomatic at this time.
--- NOTE | 2018-12-31 15:15 | NUR ---
Paged assigned hospitalist regarding accu check reading. LO
--- NOTE | 2018-12-31 15:20 | NUR ---
Hospitalist on unit, informed him of low glucose. Awaiting orders.
--- NOTE | 2018-12-31 15:45 | NUR ---
Critical Lab Received call from Lab regarding serum blood glucose at 37. Hospitalist Dr. Kowalski on unit informed regarding critical value. Awaiting orders for patient. He was notified that no protocol in place for her Accu Check.
--- NOTE | 2018-12-31 17:03 | NUR ---
LO Accu Check Blood sugar post dextrose 50% is [address] Kowalski notified and ordered to give an additional 50% dextrose and increase IV fluids to 150mls/hr.
[2018-12-31] MEDS: DEXTROSE 10% 1,000 ML IV SCH ×2 (17:15→23:10)
--- NOTE | 2018-12-31 17:55 | NUR ---
Accu Check Rechecked, now 74. Spouse and grandchildren at bedside. Patient states she is okay.
--- NOTE | 2018-12-31 18:30 | NUR ---
NGT - 100mls for shift.
--- NOTE | 2018-12-31 19:25 | NUR ---
Opening Shift Note Assumed care of patient, awake and alert x4. No S/S of distress/SOB or pain. Call light is within reach, bed is in lowest position, side rail sup x2. Instructed on POC and to call for assist PRN, will continue to monitor for changes Q1hr and PRN. Addendum: 01/01/19 at 0502 by EBENEZER ABBASI RN RN Patient has an NG tube to the right nare and is on low intermittent suction, at the start of this shift the container holds 100 mL of brownish draining with particles.
--- NOTE | 2018-12-31 23:03 | NUR ---
Paged hospitalist Critical accucheck result: 16 on the first check and the repeat was 21. Patient is awake and oriented, no complaints of distress, she is tired but easily aroused when called by name.
--- NOTE | 2018-12-31 23:11 | NUR ---
Hospitalist called back, new order received for dextrose 50 1 amp prn when BS is less than 60. Will carry out and continue to monitor patient.
[2018-12-31] MEDS: DEXTROSE (50%) 50ML SYRG IV PRN (23:25)
--- NOTE | 2018-12-31 23:54 | NUR ---
Rechecked blood glucose, it is now 102. Patient is resting comfortably in bed. Will continue to monitor patient.
[2019-01-01] VITALS (18 sets, daily range): BP systolic 94–138; BP diastolic 54–84
[2019-01-01] MEDS: ACCU-CHEK COMFORT CURVE STRIP VI SCH ×6 (01:59→22:12)
[2019-01-01] MEDS: DEXTROSE (50%) 50ML SYRG IV PRN ×4 (04:22→14:36)
--- NOTE | 2019-01-01 04:28 | NUR ---
Ad hospitalist Patient's blood sugar was 10, after immediate recheck it was 12. Will recheck blood sugar after giving D50 1 amp prn. Patient is asymptomatic stating that she is hungry but good. Will continue to monitor.
--- NOTE | 2019-01-01 04:46 | NUR ---
Charge nurse called house sup, there are no beds available in the [facility], patient is to go to ICU room 109 with NEELIMA Jeronimo. Waiting for hospitalist to call back for transfer orders.
--- NOTE | 2019-01-01 04:56 | NUR ---
Reassessed patient's blood sugar it is now 146. Will page hospitalist again and continue to monitor patient.
--- NOTE | 2019-01-01 05:07 | NUR ---
Hospitalist called back, orders received to transfer patient to ICU.
--- NOTE | 2019-01-01 05:40 | NUR ---
NGT output Emptied 100 mls of brownish/green drainage from NG suction container.
--- NOTE | 2019-01-01 05:47 | NUR ---
Transferred patient to ICU bed 109 with NEELIMA Jeronimo SBAR was given to Kandace, all questions answered. Patient was transferred with telemetry monitoring. No S/S of distress, SOB, or pain. All patient belongings taken to patient's new room. Endorsed care to Kandace ORTEZ.
[2019-01-01] MEDS: METOCLOPRAMIDE HCL 5MG/ml INJ 2ml VIAL IV SCH (06:05)
--- NOTE | 2019-01-01 06:09 | NUR ---
Tried to call patient's daughter Lucía but there was no answer or voice mailbox to leave a message with. Called the patient's Nuha and left a message to call the hospital back at the ICU ext [phone].
[2019-01-01] MEDS: DEXTROSE 10% 1,000 ML IV SCH ×2 (06:13→12:40)
--- NOTE | 2019-01-01 06:19 | NUR ---
TRANSFERRED FROM THE FLOOR TO ROOM 109 ICU. UNSTABLE BLOOD SUGAR. PLACED IN BED. BEDSIDE MONITOR HOOKUP. PULSE OXIMETER ON. SPEAKS MOSTLY VINCENTIAN. ALERT. ORIENTED. LUNGS CLEAR. ROOM AIR. ABDOMEN SOFT. DENIES ABDOMINAL PAIN OR NAUSEA.TIMMONS WELL. MOVED SELF TO BED. PATIENT WAS COLD. GAVE HER 2 WARM BLANKETS. NO FEVER. ALL PULSES PALPABLE. BLOOD SUGAR ON ARRIVAL WAS 59. ONE AMP OF D50 GIVEN. MRSA SWABS SENT. D10 AT 150CC/HR THROUGH A 22G IV NIRMALA. IV SITE SHOWS NO REDNESS OR SWELLING.
--- NOTE | 2019-01-01 06:55 | NUR ---
REPEAT BLOOD SUGAR 131. AM LABS BEING DRAWN NOW
[2019-01-01 07:50] LABS: Basophils # (auto) 0 uL; Basophils % (auto) 0.3 % (0.0-2.0); Eosinophils # (auto) 0.1 uL; Hemoglobin 9.8 g/dL (12.2-16.2); Lymphocytes # (auto) 0.5 uL; Lymphocytes % (auto) 8.1 % (10.0-50.0); Mean Corpuscular Volume 76.6 fL (80.0-100.0); Monocytes # (auto) 0.4 uL
[2019-01-01 07:52] LABS: Eosinophils % (auto) 1.3 % (0.0-7.0); Hematocrit 31.8 % (36.0-46.0); Mean Corpuscular Hemoglobin 23.6 pg (28.0-32.0); Mean Corpuscular Hgb Conc. 30.7 g/dL (32.0-36.0); Monocytes % (auto) 6.7 % (0.0-12.0); Neutrophils # (auto) 5.4 uL; Neutrophils % (auto) 83.6 % (37.0-80.0); Nucleated Red Blood Cells % 0.3 %; Platelet Count (auto) 292 10^3/uL (140-450); Red Blood Cells 4.14 10^6/uL (4.0-5.20); White Blood Cell 6.5 10^3/uL (4.4-10.8)
[2019-01-01 07:56] LABS: Red Cell Distribution Width 20.7 % (11.8-14.3)
[2019-01-01 08:03] LABS: BUN/Creatinine Ratio 18.8; Calcium 7.8 mg/dL (8.5-10.1)
--- NOTE | 2019-01-01 08:05 | NUR ---
MD Dr. Roberto pagechichi for critical lab value, awaiting for MD to call back.
--- NOTE | 2019-01-01 08:05 | NUR ---
CRITICAL LAB Received critical lab value of potassium of 2.3 from Haley in laboratory.
[2019-01-01 08:06] LABS: Potassium 2.3 mmol/L (3.5-5.1)
--- NOTE | 2019-01-01 08:17 | NUR ---
MD Dr. Nettles called and aware of critical lab value of potassium of 2.3 with new orders, this RN to input into system.
[2019-01-01] MEDS ORDERED: POTASSIUM EFFERVESENT TAB 25 MEQ GT ONE (09:00)
[2019-01-01] MEDS: POTASSIUM CHL 20MEQ/100ML 100 ML IV SCH ×2 (09:13→11:00)
[2019-01-01] MEDS: FAMOTIDINE (10MG/ML) 2ML VL IV SCH ×2 (10:06→22:12)
--- NOTE | 2019-01-01 10:20 | NUR ---
LOW GLUCOSE/MD Patients blood glucose 28 rechecked:27. Given D50 per MD orders. Paged Dr. Kowalski to notify of blood glucose and waiting for MD to call back.
--- NOTE | 2019-01-01 10:23 | NUR ---
MD Dr. Kowalski paged aware of blood glucose of 28, rechecked at 27 and given D50. No new orders given by MD. declined to change accu checks to Q2. Will continue to monitor patient closely for hypoglycemia signs/symptoms.
--- NOTE | 2019-01-01 10:40 | NUR ---
RECHECKED BLOOD GLUCOSE Rechecked blood glucose at 72 post administering D50.
--- NOTE | 2019-01-01 12:15 | NUR ---
ELIMINATION Patient requested bedpan, voided without difficulty. Kayleigh-care given and partial bed linen changed at this time.
--- NOTE | 2019-01-01 14:10 | NUR ---
LOW BLOOD GLUCOSE/MD Blood glucose reading low gave patient Mcdonough juice and then rechecked it again and blood glucose reading low, given D50 per MD order. Dr. Kowalski at bedside and aware of low blood glucose with no new orders other than to start patient on a clear liquid diet and recheck potassium when potassium is done. Patient resting in bed with visitors at bedside and denies any complains at this time. MD spoke to patients daughter regarding plan of care. Will continue to monitor patient closely.
--- NOTE | 2019-01-01 14:55 | NUR ---
RECHECKED BLOOD GLUCOSE Rechecked blood glucose 141 post administering D50.
--- NOTE | 2019-01-01 15:47 | NUR ---
NUTRITION CONSULT/ASSESSMENT NOTES Please refer to link notes of nutrition screen form filed under the intervention section of the plan of care for further details. Est. Needs: 1200 kcal to 1450 kcal (25-30 kcal/kgBW), 48 gms to 62 gms pro (1.0-1.3 gms/kgBW). Will continue to monitor pertinent labs and reassess nutrient need prn Thank you for this consult. Addendum: 01/01/19 at [address] Amended: Links added.
--- NOTE | 2019-01-01 16:40 | NUR ---
ELIMINATION Patient requested for bedpan able to void, partial linen change done with assistance for patient. Patient tolerated well. Will continue to monitor.
--- NOTE | 2019-01-01 18:05 | NUR ---
BLOOD GLUCOSE Patients blood glucose 66, given apple juice and jell-o per patient request.
--- NOTE | 2019-01-01 18:20 | NUR ---
NUTRITION Patient sitting up in bed and eating dinner independently. Patient tolerating well.
--- NOTE | 2019-01-01 18:50 | NUR ---
ELIMINATION Patient requested for bedpan able to void, partial linen change done with assistance for patient. Patient tolerated well. Will continue to monitor.
--- NOTE | 2019-01-01 19:45 | NUR ---
ALERT AND ORIENTED, COOPERATIVE. NEUROLOGICAL INTACT, COMMUNICATES IN [place] WITH THIS RN. CARDIAC - HR 60'S, OCCASIONAL PVC'S. SBP 140-150'S. LUNGS CLEAR, ROOM AIR, SATS 97-100%, SKIN WARM AND DRY. IV SITES #22 TO NIRMALA INTACT. ABDOMEN - ROUND, SOFT. DIARRHEA, CLEAR LIQUID DIET FOR DINNER, HAD 90% WITH NO C/O ABDOMINAL PAIN VOIDS. POSITIONS SELF.
--- NOTE | 2019-01-01 21:00 | NUR ---
NGT TO RIGHT NARE AT 30 CM, UNABLE TO AUSCULTATE, ADVANCE TO 50 CM, AUSCULTATED WITH NO DIFFICULTIES, RE-TAPED.
--- NOTE | 2019-01-01 22:00 | NUR ---
STOOL - LARGE DIARRHEA STOOL, LARGE AMT. OF URINE, NORMAL ODOR. UNABLE TO MEASURE SPILL OVER BEDPAN. PT. STATES HAS HAD DIARRHEA ON AND OFF FOR THE LAST 2 YEARS
--- NOTE | 2019-01-01 22:30 | NUR ---
BLOOD SUGAR 48, WILL PROVIDE MILK.
--- NOTE | 2019-01-01 23:49 | NUR ---
BLOOD SUGAR 85. RESTING AT THIS TIME.
[2019-01-02] VITALS (21 sets, daily range): BP systolic 70–147; BP diastolic 49–117
[2019-01-02] MEDS: DEXTROSE 10% 1,000 ML IV SCH ×4 (02:11→13:43)
[2019-01-02] MEDS: ACCU-CHEK COMFORT CURVE STRIP VI SCH ×6 (02:12→21:59)
[2019-01-02 03:47] LABS: Mean Corpuscular Hgb Conc. 31.7 g/dL (32.0-36.0); White Blood Cell 7.2 10^3/uL (4.4-10.8)
[2019-01-02 03:50] LABS: Hematocrit 29.6 % (36.0-46.0); Hemoglobin 9.4 g/dL (12.2-16.2); Mean Corpuscular Hemoglobin 23.6 pg (28.0-32.0); Mean Corpuscular Volume 74.3 fL (80.0-100.0); Platelet Count (auto) 347 10^3/uL (140-450); Red Blood Cells 3.98 10^6/uL (4.0-5.20)
[2019-01-02 04:08] LABS: Red Cell Distribution Width 21.8 % (11.8-14.3)
[2019-01-02 04:09] LABS: Band Neutrophils % (manual) 0; Basophils % (manual) 0 (0.0-2.0); Blast Cells 0; Eosinophils % (manual) 0 (0-7); Metamyelocytes % 0; Myelocytes % 0; Promyelocytes % 0; Reactive Lymphocytes 0
[2019-01-02 04:13] LABS: BUN/Creatinine Ratio 9.3; Calcium 7.7 mg/dL (8.5-10.1)
[2019-01-02 04:23] LABS: Potassium 2.8 mmol/L (3.5-5.1)
--- NOTE | 2019-01-02 04:23 | NUR ---
CRITICAL - K+ 2.8, REPORTED FROM LAB. WILL NOTIFY PHYSICIAN MARINE ENGINEERING TECHNICIANS.
[2019-01-02 04:47] LABS: Lymphocytes % (manual) 15 (10.0-50.0); Monocytes % (manual) 2 (0-12)
--- NOTE | 2019-01-02 05:13 | NUR ---
JORGE SURFACING TECHNICIAN NOTIFIED OF K+ 2.8, ORDERS FOR 40 MEQ P.O RECEIVED.
[2019-01-02] MEDS ORDERED: POTASSIUM CHL 20 Meq TABLET PO ONE ×2 (05:15→11:00)
--- NOTE | 2019-01-02 06:50 | NUR ---
BLOOD SUGAR 44, 240 CC OF ORANGE JUICE PROVIDED. PT. ALERT AND ORIENTED, DENIES ANY NAUSEA/MORAN.
--- NOTE | 2019-01-02 08:54 | NUR ---
Resumed care at 0730. Orders reviewed and ongoing assessments being done. Bahraini speaking only, is alert and interacting appropriately. Being treated for recurrent small bowel dilatation (non-obstruction). Continues to have frequent bouts of loose stool. Upon arrival passed a moderate size liquid BM (mixed with urine) light brown in color. Denies nausea and stomach is flat with positive bowel sounds. NGT remains in right nare, at this time clamped. Started on a liquid diet, breakfast served. Continuing to check blood glucose Q4 for hypoglycemia. Reviewed plan of care, comprehensive.
[2019-01-02] MEDS: FAMOTIDINE (10MG/ML) 2ML VL IV SCH ×2 (10:06→21:59)
--- NOTE | 2019-01-02 11:28 | NUR ---
Blood sugar check at 0955 measured low. Attempted again on a different finger and measured 21 at 1002. Fingers are cool to touch. Nicolás blood from earlobe and measured 93. Is tolerating a clear liquid diet and D10 continues to infuse intravenously.
--- NOTE | 2019-01-02 11:31 | NUR ---
Contacted Dr. Roberto at 1050 to report potassium level. 3.0, ordered another dose of KCL po 40 meq (given), will redraw at 1600.
[2019-01-02] MEDS: Ensure Enlive Strawberry 8oz Bottle PO SCH ×2 (12:00→18:40)
--- NOTE | 2019-01-02 14:37 | NUR ---
Dr. Roberto rounded at 1213. Discussed condition and plan of care. Will follow up on GI consult, ordered on 12-31-18. Called PBX at 1322, Dr. Pryor on today. Per Dr. Roberto okay to discontinue NGT, is eating and having frequent bowel movements.
--- NOTE | 2019-01-02 15:59 | NUR ---
Has been out of bed and up in chair for the past hour. Remains alert and interacting appropriately. Tolerating po liquids.
[2019-01-02 17:05] LABS: BUN/Creatinine Ratio 8.7; Potassium 3.7 mmol/L (3.5-5.1)
--- NOTE | 2019-01-02 18:50 | NUR ---
Dr. Pryor, dental assistant teacher rounded at 1605. Agreed with current plan of care with no new orders. Remains out of bed and sitting in chair, eating dinner. Family remains at bedside.
--- NOTE | 2019-01-02 19:45 | NUR ---
ASSESSMENT: ALERT AND ORIENTED, SITTING AT BESIDE. TAKING CLEAR LIQUID DINNER AND TOLERATING. CARDIAC - HR 60'S, SINUS RHYTHM, BP 90'S. LUNGS CLEAR ABDOMEN - SOFT, ROUND, (+) B.S, CONTINUES TO HAVE DIARRHEA, DENIES ABDOMINAL PAIN OR NAUSEA. VOIDING, UNABLE TO TELL COLOR DUE TO STOOL ALWAYS MIX WITH URINE. SKIN INTACT. IV SITE TO NIRMALA INTACT. D10 AT 150CC/HR CONTINUES. WILL CONTINUE TO MONITOR
--- NOTE | 2019-01-02 20:30 | NUR ---
VISITORS - PT'S AND IN LAW AT BED SIDE.
--- NOTE | 2019-01-02 21:30 | NUR ---
BLOOD SUGAR 77, 240 CC MILK PROVIDED.
[2019-01-03] VITALS (23 sets, daily range): BP systolic 90–136; BP diastolic 54–77
--- NOTE | 2019-01-03 00:30 | NUR ---
ELIMINATION - STATES DIFFICULT TO HOLD URINE AND/OR STOOL MANY TIMES. UNABLE TO GET TO BATHROOM AT THIS TIME, BED LAM PROVIDED. LIQUID STOOL MIX WITH URINE
[2019-01-03] MEDS: ACCU-CHEK COMFORT CURVE STRIP VI SCH ×5 (02:00→22:30)
[2019-01-03] MEDS: DEXTROSE 10% 1,000 ML IV SCH ×4 (03:56→20:27)
--- NOTE | 2019-01-03 04:00 | NUR ---
ELIMINATION - URINE MIXED WITH STOOL, BED LAM USED, UNABLE TO MAKE IT TO TOILET VSS. BLOOD SUGARS CONTINUE LOW
[2019-01-03 04:09] LABS: Basophils # (auto) 0 uL; Eosinophils # (auto) 0.2 uL; Nucleated Red Blood Cells % 0.2 %
[2019-01-03 04:12] LABS: Basophils % (auto) 0.7 % (0.0-2.0); Eosinophils % (auto) 2.9 % (0.0-7.0); Hematocrit 29.1 % (36.0-46.0); Hemoglobin 9.2 g/dL (12.2-16.2); Lymphocytes % (auto) 16.9 % (10.0-50.0); Mean Corpuscular Hemoglobin 23.4 pg (28.0-32.0); Mean Corpuscular Hgb Conc. 31.4 g/dL (32.0-36.0); Mean Corpuscular Volume 74.6 fL (80.0-100.0); Monocytes # (auto) 0.7 uL; Neutrophils # (auto) 3.8 uL; Neutrophils % (auto) 66.5 % (37.0-80.0); Platelet Count (auto) 351 10^3/uL (140-450); White Blood Cell 5.7 10^3/uL (4.4-10.8)
[2019-01-03 04:20] LABS: Red Cell Distribution Width 22.4 % (11.8-14.3)
[2019-01-03 04:27] LABS: Potassium 3.5 mmol/L (3.5-5.1)
[2019-01-03 04:33] LABS: Albumin 2.3 g/dL (3.4-5.0); BUN/Creatinine Ratio 10.6; Calcium 7.7 mg/dL (8.5-10.1); Magnesium 1.6 mg/dL (1.6-2.6)
[2019-01-03 04:36] LABS: Bilirubin, Total 0.3 mg/dL (0.2-1.0); Total Protein 5.5 g/dL (6.4-8.2)
[2019-01-03] MEDS: Ensure Enlive Strawberry 8oz Bottle PO SCH ×3 (08:00→18:35)
[2019-01-03] MEDS: FAMOTIDINE (10MG/ML) 2ML VL IV SCH ×2 (10:07→22:09)
--- NOTE | 2019-01-03 10:30 | NUR ---
Resumed care at 0730. Orders reviewed and ongoing assessments being done. Citizen Of [place] speaking only, is alert and interacting appropriately. Being treated for recurrent small bowel dilatation (non-obstruction). Continues to have frequent bouts of loose stool. Passed two loose BM's with mix urine since start of shift. Continuing to tolerate po clear liquid diet. Able to ambulated to toilet with standby assist without incident. Remains on D10 IVF at 150 ml/hour and continuing to check blood glucose Q 4 hour. Have to stick earlobes for blood sample. Family in to visit.
[2019-01-03] MEDS ORDERED: MAGNESIUM SULFATE 1GM/100ML 100 ML IV ONE (11:45)
[2019-01-03] MEDS ORDERED: POTASSIUM CHL 20 Meq TABLET PO ONE (11:45)
--- NOTE | 2019-01-03 15:18 | NUR ---
Nutrition Follow-up Notes Wt.: 49.1 kg today. Pt's asleep, no immediate family member at bedside when rounded this morning. Pt's no signs of distress noted currently on Clear Liquid diet with Ensure Enlive 1 carton TID, has poor PO intake aeb 50% ave. consumed meals (x4) since yesterday. Noted pt's for active GI and Surgical Consults Est. Needs: 1200 kcal to 1450 kcal (25-30 kcal/kgBW), 48 gms to 62 gms pro (1.0-1.3 gms/kgBW). Will continue to monitor pertinent labs and reassess nutrient need prn Labs: Gluc 71 L,BUN 5 L, Cr 0.47 L, Ca 7.7 L, AST 8 L, Tpro 5.5 L, Alb 2.3 L Skin: Elan scale 19, risk, skin intact per documentation liaison. GI: P had 5x BM 01/02/19 per documentation liaison. PES: Increased nutrient needs r/t altered GI functions aeb Small bowel obstruction,Acute abdominal pain,Severe anemia,Nausea & vomiting, on Clear Liquid diet Altered nutrition related lab values r/t current/chronic medical condition aeb hyperglycemia, hypokalemia, hypocalcemia, mod hypoalbuminemia Will continue to monitor PO intake, skin status, pertinent labs and weight trend. F/u in 2 to 3 days. Rec.: 1.) Advance gradually oral diet (Soft Consistent Low Carb: 45 gms/meal diet) when medically appropriate. 2.) Continue close supervision with meals. 3.) Refer to CDE/RD for further nutrition educ. and weight monitoring upon discharge. 4.) Continue current plan of care.
--- NOTE | 2019-01-03 15:52 | NUR ---
Dr. Correa was in to round at 1100. Discussed condition and plan of care. Continues to have loose stools ( three BM's today) Collected sample earlier and sent to lab for test ordered. Has been out of bed and sitting in chair throughout the shift. In good spirits and tolerating po diet, advanced to full liquid. Dr. Pryor Cps Team Lead was also in to round at 1130, continue current plan of care. Noted IV site to left upper arm puffy and warn to touch. Mild tenderness when palpated. Discontinued IV infusion of D 10 and removed catheter. Applied warm compress to site. Poor venous access and obtained order for Midline placement. Kiana ORTEZ at bedside for line placement. Discussed with patient and agreed with plan of care.
--- NOTE | 2019-01-03 16:01 | NUR ---
Midline Placement Patient educated on need for midline placement. All risks and benefits explained and all questions and concerns addresses prior to procedure. 18g/10cm midline inserted via right brachial vein using Ultrasound x 2 attempts. Sterile technique utilized. Blood return obtained from single lumen and flushed easily with NS using proper technique. Midline secured with saline lock; biodisc and occlusive dressing applied. Primary RN notified. Midline lot #[id number].
--- NOTE | 2019-01-03 17:00 | NUR ---
RN REPORTS THAT PATIENT HAS BEEN WALKING FINE WITH SBA. P.T. TO ASSIST NEEDED.
[2019-01-04] VITALS (24 sets, daily range): BP systolic 88–139; BP diastolic 54–85
[2019-01-04] MEDS: ACCU-CHEK COMFORT CURVE STRIP VI SCH ×6 (02:03→22:28)
[2019-01-04] MEDS: DEXTROSE (50%) 50ML SYRG IV PRN ×2 (02:11→07:34)
[2019-01-04] MEDS: DEXTROSE 10% 1,000 ML IV SCH ×4 (03:02→21:15)
--- NOTE | 2019-01-04 06:10 | NUR ---
HYPOGLYCEMIA BS 55, MORNING BMP DRAWN. WILL WAIT FOR THE LAB GLUCOSE LEVEL TO GIVE D50. Addendum: 01/04/19 at 0814 by Angela Khan RN ERROR ON CHARTING BS 58
[2019-01-04 06:37] LABS: Hematocrit 28.3 % (36.0-46.0); Hemoglobin 8.7 g/dL (12.2-16.2)
[2019-01-04 06:59] LABS: BUN/Creatinine Ratio 10.7; Calcium 7.9 mg/dL (8.5-10.1); Magnesium 1.8 mg/dL (1.6-2.6); Potassium 3.6 mmol/L (3.5-5.1)
--- NOTE | 2019-01-04 07:35 | NUR ---
LAB BS 59 D50 1 AMP IV GIVEN ORDERED.
[2019-01-04] MEDS: FAMOTIDINE (10MG/ML) 2ML VL IV SCH ×2 (10:10→22:22)
[2019-01-04] MEDS ORDERED: MAGNESIUM SULFATE 1GM/100ML 100 ML IV ONE (10:30)
[2019-01-04] MEDS ORDERED: POTASSIUM CHL 20 Meq TABLET PO ONE (10:30)
[2019-01-04] MEDS: Ensure Enlive Strawberry 8oz Bottle PO SCH ×3 (10:39→18:00)
--- NOTE | 2019-01-04 11:55 | NUR ---
REPORT IS GIVEN TO TIEN ORTEZ.
--- NOTE | 2019-01-04 12:07 | NUR ---
assessment Patient is a 53 year old American speaking female who is alert and oriented. Prior to admission patient lived home with family and functioned independently. Patients post discharge needs to be determined prior to discharge and after down grade to floor. Addendum: 01/05/19 at 1209 by Radha BONE Amended: Links added.
--- NOTE | 2019-01-04 12:15 | NUR ---
ASSESSMENT PT SITTING IN BED AND WATCHING TV. MOSTLY SAMMARINESE SPEAKING BUT ABLE TO COMMUNICATE WITH HER. PT ON RROM AIR WITH O2 SAT OF 100%. LUNGS CLEAR THROUGHOUT. ABD SOFT WITH HYPOACTIVE BOWEL SOUNDS. LAST BM WAS EARLIER TODAY. VOIDS VIA BEDPAN. NONE AT THIS TIME. TURNED FOR COMFORT. SKIN IS BLANCHABLE RED TO HER SACRAL AREA AND UPPER BUTTOCKS. PT WITH RUE MIDLINE, SITE BENIGN, WITH D10 INFUSING AT 150 ML/HR. CONTINUE TO MONITOR.
--- NOTE | 2019-01-04 13:20 | NUR ---
ELIMINATION PT USED BEDPAN TO VOID AND ALSO WATERY YELLOWISH BROWN BM. RASHEL CARE GIVEN AND Z GUARD APPLIED SKIN PROTECTANT.
--- NOTE | 2019-01-04 14:30 | NUR ---
PT RESTING IN BED , ABLE TO MOVE SELF, DENIES ANY PAIN OR SOB. DAUGHTER AT THE BEDSIDE , ASSISTING WITH TRANSLATION. CHECKED PT'S BLOOD SUGAR, 114. CONTINUE TO MONITOR.
--- NOTE | 2019-01-04 16:00 | NUR ---
ELIMINATION USED BEDPAN TO PASS A MIXTURE OF URINE AND LIQUID WATERY BM, 400 ML. RASHEL CARE GIVEN AND Z GUARD REAM APPLIED TO PROTECT SKIN.
--- NOTE | 2019-01-04 17:24 | NUR ---
MEDICATED PT WITH ZOFRAN 4MG IV FOR C/O NAUSEA. CONTINUE TO MONITOR.
--- NOTE | 2019-01-04 17:30 | NUR ---
ELIMINATION PT USED BEDPAN TO VOID URINE AND LIQUID WATERY BM, 375 ML. RASHEL CARE GIVEN AND Z GUARD CREAM APPLIED TO PROTECT SKIN.
--- NOTE | 2019-01-04 18:25 | NUR ---
N/V ACCUCHECK OF 90. PT C/O NAUSEA. VOMITED ABOUT 100ML OF CLEAR FLUID WITH BITS OF VALENCIA DEBRIS. JUST HAD ZOFRAN 1 HOUR AGO AND NOTHING ELSE ORDERED. PAGING DR MACIAS.
--- NOTE | 2019-01-04 18:45 | NUR ---
EMESIS VOMITED ANOTHER 50 ML OF CLEAR FLUID WITH BITS OF VALENCIA DEBRIS. PT STATES FEELING BETTER AFTER VOMITING. STILL AWAITING A CALL BACK FROM THE REFRIGERATING OILER MD.
[2019-01-04] MEDS ORDERED: PROMETHAZINE HCL 25 MG/ML 1ML IV PRN (19:07)
--- NOTE | 2019-01-04 19:30 | NUR ---
Opening Shift Note Pt sleeping in bed and easily arousable. Alert and oriented times four. Lungs clear bilaterally. Pt continues to have episodes of loose watery stool in bed ramirez. No complaints of pain or nausea at this time. Bed in lowest position with all alarms on and audible. Pt in full view of RN.
--- NOTE | 2019-01-04 19:30 | NUR ---
REPORT REPORT GIVEN TO PREETI RNKRYSTIAN. INFORMED HER THAT PT'S DINNER IS IN THE REFRIGERATOR IF THE PT GETS HUNGRY LATER. CHECKED ON THE PT AND SHE IS ASLEEP. HER FAMILY MEMBER IS AT THE BEDSIDE. INFORMED HIM THAT I SPOKE WITH THE MD REGARDING HER VOMITING AND OBTAINED AN ORDER FOR PHENERGAN FOR NAUSEA IF SHE NEEDS IT.
--- NOTE | 2019-01-04 23:57 | NUR ---
ELIMINATION Pt had an episode of loose watery stool mixed with urine. Pt cleaned and linen change performed at this time.
[2019-01-05] VITALS (20 sets, daily range): BP systolic 110–149; BP diastolic 70–84
[2019-01-05] MEDS: ACCU-CHEK COMFORT CURVE STRIP VI SCH ×6 (02:00→22:00)
--- NOTE | 2019-01-05 02:59 | NUR ---
ELIMINATION Pt had an episode of loose watery stool mixed with urine. Pt cleaned and linen change performed at this time. Z-guard applied to protect skin.
[2019-01-05] MEDS: DEXTROSE 10% 1,000 ML IV SCH ×3 (03:55→13:34)
[2019-01-05 04:28] LABS: Hemoglobin 9.1 g/dL (12.2-16.2)
[2019-01-05 04:37] LABS: Calcium 7.3 mg/dL (8.5-10.1); Potassium 3.5 mmol/L (3.5-5.1)
[2019-01-05 04:41] LABS: BUN/Creatinine Ratio 14.5
--- NOTE | 2019-01-05 07:00 | NUR ---
END OF SHIFT NOTE CARE ENDORSED TO NEELIMA OLMOS.
--- NOTE | 2019-01-05 07:45 | NUR ---
ELIMINATION Pt had moderate amount of loose watery stool mixed with urine. Pt cleaned and linen change performed at this time. Z-guard applied to protect skin as it is noted to be pink but blanchable.
[2019-01-05] MEDS: Ensure Enlive Strawberry 8oz Bottle PO SCH ×3 (08:00→17:54)
[2019-01-05] MEDS: FAMOTIDINE (10MG/ML) 2ML VL IV SCH ×2 (09:36→22:42)
--- NOTE | 2019-01-05 11:26 | NUR ---
ROUNDS DR. COLE AT BEDSIDE. MD UPDATED ON PATIENTS STATUS, MD AWARE PATIENT HAD 4 BMS' OVERNIGHT PER REPORT AND ONE THIS A.M. SEE NEW ORDER.
[2019-01-05] MEDS ORDERED: ACETAMINOPHEN 500 MG TAB PO PRN (11:30)
--- NOTE | 2019-01-05 13:00 | NUR ---
Nutrition Patient ate 100% of lunch tray. Tolerated well.
--- NOTE | 2019-01-05 13:05 | NUR ---
ELIMINATION Pt had an small episode of loose watery, pale green/yellow stool mixed with urine. Pt cleaned and linen change performed at this time. Z-guard applied to protect skin. Patient assisted oob to chair with standby assistance. Patient tolerated well.
--- NOTE | 2019-01-05 15:33 | NUR ---
Nutrition Follow-up Notes Wt.: 48.0 kg today. Pt denies any discomfort during rounds this morning. 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 Pt's diabetic, takes oral DM meds, usually has good appetite, eat meals regularly, NKFA and tries to eat healthy diet dining room captain. Pt's currently on Regular diet with Ensure Enlive 1 carton TID, tolerates oral diet, has adequate PO intake aeb 85% ave. consumed meals (x6) in last 2.5 days. Est. Needs: 1200 kcal to 1450 kcal (25-30 kcal/kgBW), 48 gms to 62 gms pro (1.0-1.3 gms/kgBW). Will continue to monitor pertinent labs and reassess nutrient need prn Labs: Gluc 71 L, BUN 5 L, Cr 0.47 L, Ca 7.7 L, AST 8 L, Tpro 5.5 L, Alb 2.3 L Skin: Elan scale 20, risk, skin intact per pocketed spring machine operator. GI: Pt had 1350 ml stool output this morning per pocketed spring machine operator. PES: Partially resolved: Increased nutrient needs r/t altered GI functions aeb Small bowel obstruction,Acute abdominal pain,Severe anemia,Nausea & vomiting, on Clear Liquid diet Altered nutrition related lab values r/t current/chronic medical condition aeb hyperglycemia, hypokalemia, hypocalcemia, mod hypoalbuminemia Will continue to monitor PO intake, skin status, pertinent labs and weight trend. F/u in 3 to 5 days. Rec.: 1.) If Albumin continues trending down, consider Prostat 1 pkt BID. 2.) Consider Soft Consistent Low Carb: 45 gms/meal diet with Glucerna Shakes 1 carton TID. 3.) Continue close supervision with meals. 4.) Refer to CDE/RD for further nutrition educ. and weight monitoring upon discharge. 5.) Continue current plan of care.
--- NOTE | 2019-01-05 16:34 | NUR ---
ELIMINATION PATIENT AMBULATED TO RESTROOM IN ROOM WITH STANDBY ASSISTANCE. PT HAD A MODERATE, PALE GREEN/YELLOW STOOL WITH URINE. PATIENT PERFORMED SELF CARE. AMBULATED BACK TO BED. TOLERATED ACTIVITY WELL.
--- NOTE | 2019-01-05 18:00 | NUR ---
Elimination Patient had a large, watery, pale green bm. Patient unable to reach restroom, bedpan used. Skin cleansed. Zgaurd applied.
--- NOTE | 2019-01-05 22:00 | NUR ---
ELIMINATION PT HELPED UP TO BEDSIDE COMMODE. PT HAD 400 MLS OF URINE MIXED WITH STOOL. Z-GUARD APPLIED TO PROTECT SKIN.
[2019-01-06] VITALS (15 sets, daily range): BP systolic 111–127; BP diastolic 55–80
[2019-01-06] MEDS: ACCU-CHEK COMFORT CURVE STRIP VI SCH ×6 (02:00→22:00)
[2019-01-06] MEDS: DEXTROSE 10% 1,000 ML IV SCH ×3 (03:56→19:35)
[2019-01-06 04:42] LABS: Chloride 108 mmol/L (98-107); Potassium 3.8 mmol/L (3.5-5.1); Sodium 137 mmol/L (136-145)
[2019-01-06 04:47] LABS: Anion Gap 11 (5-15); BUN/Creatinine Ratio 19.6; Blood Urea Nitrogen 9 mg/dL (7-18); Calcium 7.1 mg/dL (8.5-10.1); Carbon Dioxide 18 mmol/L (21-32); GFR African American 183 mL/min; GFR Non-African American 152 mL/min
[2019-01-06 04:54] LABS: Glucose 48 mg/dL (74-106)
--- NOTE | 2019-01-06 05:24 | NUR ---
RECEIVED CRITICAL LAB GLUCOSE LEVEL OF 48. CHECKED PT'S POC GLUCOSE AND IT WAS 86. NO INTERVENTIONS DONE AT THIS TIME.
--- NOTE | 2019-01-06 06:34 | NUR ---
ELIMINATION PT HAD A TOTAL OF 1700 OUT THROUGHOUT SHIFT. EACH VOID HAD STOOL MIXED IN.
--- NOTE | 2019-01-06 07:00 | NUR ---
Opening Shift Note: Report received from NEELIMA Roach. Patient on D10 drip at 100ml for low glucose. Patient A/O x4 and is ambulatory-gets out of bed to the bathroom. For more specific details see Interventions.
--- NOTE | 2019-01-06 07:27 | NUR ---
END OF SHIFT NOTE CARE ENDORSED TO NEELIMA MACDONALD.
[2019-01-06] MEDS: Ensure Enlive Strawberry 8oz Bottle PO SCH ×3 (08:45→18:51)
--- NOTE | 2019-01-06 10:00 | NUR ---
Acu-check 93
[2019-01-06] MEDS: FAMOTIDINE (10MG/ML) 2ML VL IV SCH (10:28)
--- NOTE | 2019-01-06 11:30 | NUR ---
Dr. Aranda at bedside: Downgrade to tele.
--- NOTE | 2019-01-06 14:00 | NUR ---
Acu-check 86
--- NOTE | 2019-01-06 15:10 | NUR ---
SBAR report given to NEELIMA Clinton in Tele. Transporting patient via wheelchair on tele monitor.
--- NOTE | 2019-01-06 15:13 | NUR ---
Family notified of downgrade and room number- spoke with daughter Lucía, unavailable.
--- NOTE | 2019-01-06 15:30 | NUR ---
Patient transferred to room 277B via wheelchair- Patient continues on D10 IVF and is stable. No c/o N/V for my shift or abdominal pain, vital signs stable. Received by BUCCARO at bedside.
--- NOTE | 2019-01-06 15:40 | NUR ---
ASSUMED CARE OF PT FROM ICU PATIENT SITTING IN ROOM COMFORTABLY. NO SOB OR SIGNS OF DISTRESS NOTED. INSTRUCTED ON POC AND TO CALL FOR ASSISTANCE PRN. WILL CONTINUE TO MONITOR.
--- NOTE | 2019-01-06 17:40 | NUR ---
LOW BLOOD SUGAR READING PERFORMED 2 BLOOD SUGAR READINGS ON PATIENTS LEFT HAND. FIRST RESULT WAS 25, SECOND WAS 15. PATIENT WAS ASYMPTOMATIC AND MENTIONED THAT SHE HAS BEEN GETTING HER BLOOD SUGAR TESTED ON HER EAR LOBE. THIRD READING WAS DONE ON HER EAR LOBE WHICH WAS 78. A FOURTH READING WAS DONE ON HER RIGHT HAND WHICH WAS 47. WILL CONTACT DOCTOR.
--- NOTE | 2019-01-06 18:00 | NUR ---
SPOKE TO ORGANIC LAB WORKER HOSPITALIST, DR MACIAS. ORDERS FOR STAT BLOOD GLUCOSE DRAW RECEIVED, WILL PLACE AND CARRY OUT.
--- NOTE | 2019-01-06 19:25 | NUR ---
Opening Shift Note Assumed care of patient, awake and alert. Family at bedside. Bed in lowest locked position, side rails up x2, call light within reach, No S/S of distress/SOB or pain. Instructed on POC and to call for assist PRN, will continue to monitor for changes Q1hr and PRN.
[2019-01-07] MEDS: ACCU-CHEK COMFORT CURVE STRIP VI SCH ×5 (02:33→16:45)
[2019-01-07 05:20] VITALS: BP 123/79
[2019-01-07] MEDS: DEXTROSE 10% 1,000 ML IV SCH (05:25)
--- NOTE | 2019-01-07 06:59 | NUR ---
Closing Note Patient lying in bed, awake and alert. Bed in lowest locked position, side rails up x2, call light within reach. No s/s of distress. Will endorse care to dayshift RN.
[2019-01-07 07:42] LABS: Potassium 3.2 mmol/L (3.5-5.1)
[2019-01-07 07:57] LABS: BUN/Creatinine Ratio 26.1; Calcium 7.4 mg/dL (8.5-10.1)
--- NOTE | 2019-01-07 08:10 | NUR ---
OPENING SHIFT NOTE ASSUMED CARE OF PATIENT. PATIENT IS AWAKE AND ALERT. NO SOB OR SIGNS OF DISTRESS NOTED. INSTRUCTED ON POC AND TO CALL FOR ASSISTANCE PRN. BED IN LOWEST POSITION WITH SIDE RAILS UP X2. WILL CONTINUE TO MONITOR.
[2019-01-07 09:00] VITALS: BP 107/69
[2019-01-07] MEDS: FAMOTIDINE 20 MG TAB PO SCH ×2 (09:41→16:44)
[2019-01-07] MEDS: Ensure Enlive Strawberry 8oz Bottle PO SCH ×4 (09:41→16:45)
[2019-01-07] MEDS ORDERED: POTASSIUM CHL 20 Meq TABLET PO ONE (11:15)
[2019-01-07] MEDS: metFORMIN HYDROCHLORIDE 500 MG TAB PO SCH ×2 (11:44→16:44)
--- NOTE | 2019-01-07 12:00 | NUR ---
DR AT BEDSIDE DR SOTO SPOKE WITH PATIENT. PLACED ORDERS. WILL CARRY OUT.
[2019-01-07 13:00] VITALS: BP 114/76
--- NOTE | 2019-01-07 14:50 | NUR ---
ORDERS PALCED BY DR GODFREY. WILL CARRY OUT. Addendum: 01/07/19 at 1558 by LILI ANGEL RN WRONG PATIENT. DISREGARD NOTE.
[2019-01-07 15:12] VITALS: BP 114/76
--- NOTE | 2019-01-07 16:46 | NUR ---
Discharge instructions given as ordered. Encourage to follow up with PCP as instructed. All questions and concerns addressed. Patient verbalized understanding. Medication reconciliation form completed and copy given to patient. MIDLINE removed with catheter intact, pressure dressing applied. Telemetry unit returned to ICU. Patient taken to vehicle via wheelchair with all personal belongings, accompanied by staff and family member. No distress noted at time of departure.
== END 2019-01-07 16:30 | disposition home or self-care (01) | DRG 247 ==
LOC: ER 08:21 → TELE 08:22 → TELE-EAST 18:57 → ICU WEST 01-01 05:46 → TELE-WESTW 01-06 15:39 → WEST WING 01-07 12:23
PROVIDERS: ADMIT Nurse Practitioner Acute Care; ATTEND Internal Medicine
PROC: 30233N0 Transfusion of Autologous Red Blood Cells into Peripheral Vein, Percutaneous Approach (ICD-10-PCS; principal; 2018-12-30)
PROC: 0D9670Z Drainage of Stomach with Drainage Device, Via Natural or Artificial Opening (ICD-10-PCS; 2019-01-02)
DX: K56.609 Unspecified intestinal obstruction, unspecified as to partial versus complete obstruction (principal); E44.0 Moderate protein-calorie malnutrition; E11.649 Type 2 diabetes mellitus with hypoglycemia without coma; D50.9 Iron deficiency anemia, unspecified; E86.0 Dehydration; E87.6 Hypokalemia; D47.3 Essential (hemorrhagic) thrombocythemia; K59.00 Constipation, unspecified; K52.9 Noninfective gastroenteritis and colitis, unspecified; K21.9 Gastro-esophageal reflux disease without esophagitis; I10 Essential (primary) hypertension; Z68.20 Body mass index [BMI] 20.0-20.9, adult
CPT/HCPCS: 36415; 71045; 74176; 74250; 80048; 80053; 80061; 82150; 82947; 82962; 83036; 83525; 83690; 83735; 84132; 84443; 84484; 85007; 85014; 85018; 85025; 85027; 85048; 85610; 85730; 86850; 86870; 86900; 86901; 86905; 86922; 87045; 87081; 87177; 87493; 87899; 93005; 94761; 96361; 96374; 96375; 96376; 99291; C9113; G0378; J2405; J3480; J3490

== ENCOUNTER 2019-02-26 10:49 | Inpatient (IN) | payer MEDICAID ==
[~2019-02-26] VITALS: Ht 154.9 cm; Wt 51.1 kg
[2019-02-26] MEDS ORDERED: SODIUM CHLORIDE 0.9% 500 ML IVB ONE (12:10)
[2019-02-26] MEDS ORDERED: ONDANSETRON HCL 4 MG/2 ML VIAL IV ONE (12:15)
[2019-02-26 12:46] LABS: Basophils # (auto) 0 uL; Eosinophils # (auto) 0 uL; Hemoglobin 7.9 g/dL (12.2-16.2); Lymphocytes # (auto) 0.9 uL
[2019-02-26 12:47] LABS: Basophils % (auto) 0.4 % (0.0-2.0); Eosinophils % (auto) 0.3 % (0.0-7.0); Hematocrit 26.4 % (36.0-46.0); Lymphocytes % (auto) 15.9 % (10.0-50.0); Mean Corpuscular Hemoglobin 20.9 pg (28.0-32.0); Mean Corpuscular Hgb Conc. 29.9 g/dL (32.0-36.0); Monocytes # (auto) 0.9 uL; Monocytes % (auto) 14.7 % (0.0-12.0); Neutrophils % (auto) 68.7 % (37.0-80.0); Nucleated Red Blood Cells % 0.1 %; Platelet Count (auto) 527 10^3/uL (140-450); Red Blood Cells 3.77 10^6/uL (4.0-5.20); White Blood Cell 5.8 10^3/uL (4.4-10.8)
[2019-02-26 13:06] LABS: Albumin 3.3 g/dL (3.4-5.0); BUN/Creatinine Ratio 36.1; Calcium 8.8 mg/dL (8.5-10.1)
[2019-02-26 13:09] LABS: Bilirubin, Total 0.2 mg/dL (0.2-1.0); Total Protein 8.2 g/dL (6.4-8.2)
[2019-02-26] MEDS: POTASSIUM CHL 20MEQ/100ML 100 ML IV SCH ×2 (14:22→18:41)
[2019-02-26] MEDS ORDERED: GASTROGRAFIN 120 ML SOL ONE (15:29)
[2019-02-26] MEDS ORDERED: MORPHINE SULF INJ 2 MG/ML SYRINGE 1ML IV PRN ×2 (15:30)
[2019-02-26] MEDS ORDERED: NITROGLYCERIN 0.4 MG SL TAB SL PRN (15:30)
[2019-02-26] MEDS ORDERED: ONDANSETRON HCL 4 MG/2 ML VIAL IV PRN (15:30)
--- NOTE | 2019-02-26 16:25 | NUR ---
MS admit from ER NICK TAVARES admitted to tele/MS after SBAR received. Patient oriented to ROLAND PENA, RN primary RN, unit, room, bed, and unit policies regarding patient care and visiting hours. Patient weighed by bedscale and encouraged to call if they need something. All questions and concerns addressed, patient verbalized understanding.
[2019-02-26 17:00] VITALS: BP 107/67
[2019-02-26] MEDS: D5W/ SOD CHL 0.9%/KCL 20MEQ 1,000 ML IV SCH (17:20)
--- NOTE | 2019-02-26 17:25 | NUR ---
CRITICAL LOW BLOOD SUGAR. INITIAL BG 50 REPEAT BG <10 LOW BLOOD GLUCOSE PROTOCOL INITIATED. PATIENT GIVEN AMP OF D50. WILL PAGE HOSPITALIST.
--- NOTE | 2019-02-26 17:30 | NUR ---
PAGED HOSPITALIST SUZETTE HERNANDEZ.
--- NOTE | 2019-02-26 17:32 | NUR ---
SUZETTE HERNANDEZ RETURNED PAGE.
[2019-02-26 18:14] VITALS: BP 107/67
[2019-02-26] MEDS: ACCU-CHEK COMFORT CURVE STRIP VI SCH ×2 (18:40→23:43)
[2019-02-26] MEDS: InsuLIN REG 1unit/0.01ml Soln (100units/ml) SC SCH ×2 (18:41→23:43)
--- NOTE | 2019-02-26 18:45 | NUR ---
BLOOD GLUCOSE CHECK. BGL OF 120.
--- NOTE | 2019-02-26 19:30 | NUR ---
assumed care, pt. awake, alert and oriented, urdu speaking, relatives at bedside, ngt to lis functioning well, no c/o pain, no sob.
[2019-02-26 20:06] LABS: INR 1.05 (0.9-1.15)
[2019-02-26] MEDS: metroNIDAZOLE 500MG/100ML 100 ML IV SCH (21:26)
[2019-02-26 21:52] VITALS: BP 100/62
--- NOTE | 2019-02-26 23:37 | NUR ---
pt. bs- 31, repeated, bs- 38, pt. awake, alert and oriented, d50 iv given as ordered, to repeat bs after one hour.
[2019-02-26] MEDS: DEXTROSE (50%) 50ML SYRG IV PRN (23:44)
[2019-02-27] MEDS: D5W/ SOD CHL 0.9%/KCL 20MEQ 1,000 ML IV SCH ×4 (01:30→21:37)
--- NOTE | 2019-02-27 04:47 | NUR ---
pt. bs- 39, repeated, bs- 34, pt. awake, alert and oriented, no c/o pain, d50 iv given as ordered, to check bs after 30 mins.
[2019-02-27] MEDS: InsuLIN REG 1unit/0.01ml Soln (100units/ml) SC SCH ×9 (04:52→23:48)
[2019-02-27] MEDS: ACCU-CHEK COMFORT CURVE STRIP VI SCH ×9 (04:52→23:48)
[2019-02-27] MEDS: DEXTROSE (50%) 50ML SYRG IV PRN ×6 (04:53→21:40)
[2019-02-27 05:06] VITALS: BP 94/57
--- NOTE | 2019-02-27 06:25 | NUR ---
pt. bs- 60, will repeat after 30mins., tap water enema done.
[2019-02-27] MEDS: metroNIDAZOLE 500MG/100ML 100 ML IV SCH ×3 (06:26→21:37)
--- NOTE | 2019-02-27 07:08 | NUR ---
paged hospitalist re: pt. bs, no order was made.
[2019-02-27 07:40] LABS: Basophils # (auto) 0 uL; Basophils % (auto) 0.4 % (0.0-2.0); Eosinophils # (auto) 0.1 uL; Eosinophils % (auto) 3.7 % (0.0-7.0); Hematocrit 26.2 % (36.0-46.0); Hemoglobin 7.1 g/dL (12.2-16.2); Lymphocytes # (auto) 0.5 uL; Lymphocytes % (auto) 14.1 % (10.0-50.0); Mean Corpuscular Hemoglobin 21.2 pg (28.0-32.0); Mean Corpuscular Volume 78.6 fL (80.0-100.0); Monocytes # (auto) 0.4 uL; Monocytes % (auto) 10.3 % (0.0-12.0); Neutrophils # (auto) 2.8 uL; Neutrophils % (auto) 71.5 % (37.0-80.0); Nucleated Red Blood Cells % 0.1 %; Platelet Count (auto) 393 10^3/uL (140-450); Red Blood Cells 3.33 10^6/uL (4.0-5.20); White Blood Cell 3.9 10^3/uL (4.4-10.8)
[2019-02-27 07:48] LABS: Red Cell Distribution Width 23.7 % (11.8-14.3)
[2019-02-27 07:53] LABS: INR 1.04 (0.9-1.15); Partial Thromboplastin Time 21.5 sec (23.64-32.05)
[2019-02-27 07:57] LABS: Albumin 2.5 g/dL (3.4-5.0); Calcium 7.8 mg/dL (8.5-10.1); Potassium 4.1 mmol/L (3.5-5.1)
--- NOTE | 2019-02-27 08:00 | NUR ---
Opening Note Assumed care of patient, she is A & O x 4, patient no s/s of distress at this time, NG is running on low intermittent suction, with a green bile output. No c/o pain at this time. Patient is otherwise comfortable. POC discussed with patient. Bed is in lowest locked position, call light within reach, bed rails up x2. Will continue to monitor Q1h and PRN.
[2019-02-27 08:02] LABS: BUN/Creatinine Ratio 35.9; Bilirubin, Total 0.2 mg/dL (0.2-1.0); Total Protein 6.3 g/dL (6.4-8.2)
[2019-02-27] MEDS ORDERED: SODIUM CHLORIDE LOCK 10 ML ONE (08:33)
[2019-02-27] MEDS ORDERED: diphenhdrAMINE HCL 50 MG/1 ML VL ONE ×2 (08:34→13:12)
[2019-02-27 09:00] VITALS: BP 108/68
--- NOTE | 2019-02-27 09:25 | NUR ---
Paged Hospitalist Patient blood sugar on morning labs was 57. Rechecked sugar at 920, sugar was 49, will medicate per orders and wait for hospitalist phone call.
--- NOTE | 2019-02-27 09:29 | NUR ---
Spoke to Hospitalist Randall Ellison Notified of patient recurrent hypoglycemic episodes, current blood glucose of 49, patient is asymptomatic at this time. Orders to transfer patient to [facility]. All orders received, read back, and verified. Will medicate per orders.
[2019-02-27] MEDS: LEVOFLOXACIN 500MG 100 ML IV SCH (09:45)
[2019-02-27] MEDS ORDERED: DEXTROSE 10% 1,000 ML IV SCH (10:00)
--- NOTE | 2019-02-27 12:00 | NUR ---
Janet ORTEZ, in Pre-op, notified that patient blood glucose is not stable, she stated "I will consult with Dr. Pryor if he still wants to do the procedure."
--- NOTE | 2019-02-27 12:55 | NUR ---
Patient taken to procedure for colonoscopy. Notified receiving NEELIMA Sloan, that patient is running D10 at 40 ml/hr due to hypoglycemia, patient is on Q2H accuchecks, last BG was 48 at 1200 and then was 166 after receiving D50 ml syringe of glucose at 1230. Patient is comfortable at this time. RN acknowledged.
[2019-02-27 13:00] VITALS: BP 99/61
[2019-02-27] MEDS: fentaNYL CITRATE 100 MCG/2 ML VL ONE ×4 (13:10→13:41)
[2019-02-27] MEDS: MIDAZOLAM HCL 5 MG/ML-1ML VIAL ONE ×4 (13:10→13:41)
--- NOTE | 2019-02-27 14:40 | NUR ---
Patient returned from procedure. Colonoscopy done, keep patient NPO. They checked her blood glucose in procedure and it was unreadable, they gave her 50ml syringe of D50 at 1416. BP 124/62, O2 94 on RA, RR 15, HR89. Upon arrival assessed patient, her bed is soiled with urine, patient is shivering, changed patient bedding and patient began to warm up, reattached patient to low intermittent suction to NG. Will continue to monitor Q1h and PRN.
--- NOTE | 2019-02-27 15:45 | NUR ---
Patient has a temperature 102.4, paged Dr. Correa
--- NOTE | 2019-02-27 15:56 | NUR ---
Patient at procedure Addendum: 02/27/19 at 1557 by RYLEE AREVALO RN RN Amended: Links added.
--- NOTE | 2019-02-27 16:28 | NUR ---
Paged Dr. Correa Patient blood sugar continues to be hypoglycemic at 52, patient has a temperature 102.4. Will await orders
[2019-02-27] MEDS ORDERED: ACETAMINOPHEN 325 MG RECT SUPP PR PRN (17:00)
[2019-02-27 17:09] VITALS: BP 102/71
--- NOTE | 2019-02-27 17:45 | NUR ---
Spoke to Dr. Correa Regarding patient hypoglycemia, and elevated temperature. Will await orders.
[2019-02-27] MEDS: DEXTROSE 10% 1,000 ML IV SCH (18:54)
--- NOTE | 2019-02-27 19:05 | NUR ---
Report Given to Shellie Burnett RN. Notified RN, that report has been given to Melissa ORTEZ in [facility] at 1837, but the room is not clean. Patient is still our patient until room is clean in [facility]. All questions answered.
--- NOTE | 2019-02-27 19:30 | NUR ---
assumed care, pt. awake, relative at bedside, ngt to lis, waiting to be transfer to no, no c/o pain ,no sob.
[2019-02-27 20:22] VITALS: BP 127/56
--- NOTE | 2019-02-27 20:22 | NUR ---
Admit to [facility] DEMARCUS MERCADONICK admitted to [facility] via gurney on electronic device monitor.Patient transferred to bed, connected to unit monitoring and weighed by [facility]. Patient oriented to Rosario zuluaga RN, unit, room, bed, and unit policies regarding patient care and visiting hours. All questions and concerns addressed, patient verbalized understanding.Patient guamanian speaking only. Denies pain at this time. Complete physical assessment done:lung sounds diminished, bowel sounds hypoactive, per patient shes had many bowel movements today. Right nare NGT auscultated for placement and connected to LIS with green secretions noted. Left EJ and left AC IV benign.Patient able to turn self in bed without assistance. Sacral scarring noted with no open wounds. Call light given to patient and instructed to call PRN. NOTE:
--- NOTE | 2019-02-27 20:24 | NUR ---
pt. transfer to no, report given to Og walters, pt. in stable condition.
--- NOTE | 2019-02-27 21:00 | NUR ---
PM CARE COMPLETE BED BATH PROVIDED FOR PATIENT AND COMPLETE LINEN CHANGE DONE. NEW GOWN PLACED ON PATIENT AND REPOSITIONED IN BED FOR COMFORT. CALL LIGHT WITHIN EASY REACH. PATIENT TOLERATED WELL.
--- NOTE | 2019-02-27 21:40 | NUR ---
LOW BLOOD SUGAR FIRST CHECK 27,SECOND CHECK 57 WILL ADMINISTER D50 AND REASSESS FOR EFFECTIVENESS PATIENT ASYMPTOMATIC
--- NOTE | 2019-02-27 21:51 | NUR ---
REASSESS BLOOD SUGAR 122 CONTINUE MONITORING
[2019-02-28] VITALS (9 sets, daily range): BP systolic 93–152; BP diastolic 60–94
[2019-02-28] MEDS: InsuLIN REG 1unit/0.01ml Soln (100units/ml) SC SCH ×11 (01:49→22:00)
[2019-02-28] MEDS: DEXTROSE (50%) 50ML SYRG IV PRN ×5 (01:49→14:51)
[2019-02-28] MEDS: ACCU-CHEK COMFORT CURVE STRIP VI SCH ×11 (01:49→22:00)
[2019-02-28] MEDS: DEXTROSE 10% 1,000 ML IV SCH ×3 (04:56→16:46)
[2019-02-28] MEDS: metroNIDAZOLE 500MG/100ML 100 ML IV SCH ×3 (05:33→21:48)
[2019-02-28 05:37] LABS: Basophils # (auto) 0 uL; Eosinophils # (auto) 0 uL; Hematocrit 21.3 % (36.0-46.0); Monocytes # (auto) 0.6 uL; Red Blood Cells 2.97 10^6/uL (4.0-5.20)
[2019-02-28 05:41] LABS: Basophils % (auto) 0.2 % (0.0-2.0); Eosinophils % (auto) 0.4 % (0.0-7.0); Lymphocytes # (auto) 0.7 uL; Lymphocytes % (auto) 11.5 % (10.0-50.0); Mean Corpuscular Hemoglobin 21.1 pg (28.0-32.0); Mean Corpuscular Hgb Conc. 29.4 g/dL (32.0-36.0); Mean Corpuscular Volume 71.7 fL (80.0-100.0); Monocytes % (auto) 10.4 % (0.0-12.0); Neutrophils # (auto) 4.8 uL; Neutrophils % (auto) 77.5 % (37.0-80.0); Nucleated Red Blood Cells % 0.1 %; Platelet Count (auto) 359 10^3/uL (140-450); White Blood Cell 6.2 10^3/uL (4.4-10.8)
[2019-02-28 05:42] LABS: Red Cell Distribution Width 23.1 % (11.8-14.3)
[2019-02-28 05:43] LABS: Hemoglobin 6.3 g/dL (12.2-16.2)
--- NOTE | 2019-02-28 05:46 | NUR ---
PAGE TO HOSPITALIST REGARDING THIS MORNING HGB AND LOW BLOOD SUGAR TRENDS
[2019-02-28 05:53] LABS: BUN/Creatinine Ratio 23.6; Calcium 7.6 mg/dL (8.5-10.1); Magnesium 1.2 mg/dL (1.6-2.6)
--- NOTE | 2019-02-28 06:08 | NUR ---
SPOKE TO HOSPITALIST RADHA PATEL NEW TELEPHONE ORDERS READ BACK AND VERIFIED FOR 1 UNIT OF PRBC'S AND TO INCREASE D10 INFUSION TO 85ML/HR.
[2019-02-28 06:11] LABS: Potassium 2.6 mmol/L (3.5-5.1)
[2019-02-28] MEDS ORDERED: DEXTROSE 10% 1,000 ML IV SCH (06:15)
--- NOTE | 2019-02-28 06:22 | NUR ---
PAGE TO HOSPITALIST REGARDING LOW POTASSIUM THIS MORNING
--- NOTE | 2019-02-28 06:32 | NUR ---
BLOOD SUGAR RECHECK 92
--- NOTE | 2019-02-28 06:45 | NUR ---
PAGE OUT TO HOSPITALIST IN REGARDS TO LOW K
[2019-02-28] MEDS: POTASSIUM CHL 20MEQ/100ML 100 ML IV SCH ×2 (07:05→10:39)
--- NOTE | 2019-02-28 08:00 | NUR ---
Opening Shift Note Assumed care of patient, awake and alert. No S/S of distress/SOB or pain. LT upper arm IV tender and puffy, will discontinue. Patient saturation 100% at room air. See interventions for complete assessment. Bed locked on low position, side rails up x2, bed alarms on at all times, call jerry within reach, instructed on POC and to call for assist PRN, will continue to monitor for changes Q1hr and PRN.
--- NOTE | 2019-02-28 09:45 | NUR ---
Patient's daughter Lucía at bedside, updated on patient's status and POC. Daughter verbalized understanding. All questions and concerns addressed.
--- NOTE | 2019-02-28 10:11 | NUR ---
IV medications not given at this time, no IV access. Blood transfusion running via LT EJ. Kiana FOOTWEAR FACTORY WORKER and Leah PICC RN at bedside to obtain another IV access.
--- NOTE | 2019-02-28 10:16 | NUR ---
Dr Correa at bedside, updated on patient's status. Patient seen and examined. Received verbal order for surgical consult due to SBO. Orders read back and verified. Will carry out.
--- NOTE | 2019-02-28 10:25 | NUR ---
Midline Placement: Patient educated on need for midline placement. All risks and benefits explained and all questions and concerns addresses prior to procedure. 18g/10cm midline inserted via left cephalic vein using Ultrasound. Sterile technique utilized. Blood return obtained from lumen and flushed easily with NS using proper technique. Midline secured with saline lock; biodisc and occlusive dressing applied. Primary RN notified. Midline lot #[id number] Addendum: 02/28/19 at 1048 by ROBBIE ROGERS RN An additional PIV access was also obtained. 22g to right hand.
[2019-02-28] MEDS: LEVOFLOXACIN 500MG 100 ML IV SCH (10:40)
[2019-02-28] MEDS ORDERED: POTASSIUM CHL 20MEQ/100ML 100 ML IV ONE (11:45)
[2019-02-28] MEDS: MAGNESIUM SULFATE 1GM/100ML 100 ML IV SCH ×2 (12:33→14:50)
[2019-02-28] MEDS: SOD CHL 0.9%/ KCL 40MEQ 1,000 ML IV SCH (12:34)
[2019-02-28 13:00] LABS: % Iron Saturation 3.8 % (15-50)
--- NOTE | 2019-02-28 14:00 | NUR ---
Dr Pryor at bedside, updated on patient's status. Patient seen and examined. Will carry out new orders.
--- NOTE | 2019-02-28 14:20 | NUR ---
NUTRITION ASSESSMENT NOTES Please refer to link notes of nutrition screen form filed under the intervention section of the plan of care for further details. Est. Needs: 1300 kcal to 1550 kcal (30-35 kcal/kgBW), 44 gms to 57 gms pro (1.0-1.3 gms/kgBW d/t severe hypoalbuminemia). Will continue to monitor pertinent labs and reassess nutrient need prn Thank you. Addendum: 02/28/19 at [address] Amended: Links added.
--- NOTE | 2019-02-28 14:20 | NUR ---
Accu check - 58, orange juice given. I will recheck blood sugar in 15 minutes.
--- NOTE | 2019-02-28 14:40 | NUR ---
Patient's NGT clamped. Patient given ice chips. Will continue to monitor.
[2019-02-28 16:55] LABS: Urine Bacteria FEW /hpf (None Seen); Urine Blood 1+ /uL (Negative); Urine Hyaline Cast FEW /lpf (0 - 2); Urine Mucus FEW (None Seen); Urine Specific Gravity 1.015 (1.001-1.035); Urine WBC 36 /hpf (0 - 5)
--- NOTE | 2019-02-28 18:15 | NUR ---
Patient's blood sugar 67 mg/dl, patient gave 125ml of apple juice, will continue to monitor.
--- NOTE | 2019-02-28 18:22 | NUR ---
Dr Humphrey at bedside, updated on patient's status. Patient seen and examined. Received verbal order to discontinue NGT and start patient on clear liquid diet. Orders read back and verified. Will carry out.
--- NOTE | 2019-02-28 18:30 | NUR ---
NGT removal NGT removed per MD/ORTHOTIC/PROSTHETIC CLINICIAN order following explanation and instruction to patient. Patient verbalized understanding prior to removal. Patient tolerated well.
--- NOTE | 2019-02-28 19:10 | NUR ---
OPENING NOTES ASSUMED CARE, AWAKE AND ORIENTED WITH NO SIGNS OF DISTRESS AND NO C/O PAIN. IV ACCESS PATENT AND INTACT INFUSING D10 @ 100 ML/HR AND NS W/ 40 MEQ KCL @ 50 ML/HR. BED IN LOWEST POSITION WITH SIDE RAILS UP, BED ALARM ON. WILL CONTINUE CARE.
--- NOTE | 2019-02-28 22:00 | NUR ---
BLOOD SUGAR 2035 = 22, GAVE 3 TETRA PACKS OF ORANGE JUICE, [id number] 2031 = 33 2000 = 41 1958 = 46 0 = 165
[2019-03-01] VITALS: BP 128/75
--- NOTE | 2019-03-01 01:30 | NUR ---
LIQUID STOOLS NOTED X 6, INSERTED RECTAL TUBE ORDERED AFTER PT AGREED WITH THE PROCEDURE AND EDUCATION WAS GIVEN.
[2019-03-01] MEDS: InsuLIN REG 1unit/0.01ml Soln (100units/ml) SC SCH ×12 (02:00→22:00)
[2019-03-01] MEDS: ACCU-CHEK COMFORT CURVE STRIP VI SCH ×12 (02:00→22:00)
[2019-03-01 04:00] VITALS: BP 104/59
[2019-03-01] MEDS: DEXTROSE 10% 1,000 ML IV SCH ×2 (04:00→15:12)
[2019-03-01 05:38] LABS: Hematocrit 27.5 % (36.0-46.0); Hemoglobin 8.4 g/dL (12.2-16.2)
[2019-03-01 06:05] LABS: BUN/Creatinine Ratio 10.7; Calcium 7.6 mg/dL (8.5-10.1); Magnesium 1.9 mg/dL (1.6-2.6)
[2019-03-01 06:16] LABS: Potassium 2.8 mmol/L (3.5-5.1)
--- NOTE | 2019-03-01 06:20 | NUR ---
PAGED THE HOSPITALIST FOR CRITICAL K+ 2.8. AWAITING CALL BACK.
[2019-03-01] MEDS: metroNIDAZOLE 500MG/100ML 100 ML IV SCH (06:25)
--- NOTE | 2019-03-01 06:29 | NUR ---
JORGE HERNANDEZ CALLED BACK, UPDATED ON LATEST K 2.8, WITH ORDER TO GIVE K RIDER 40 MEQ IV. WILL CARRY OUT AN ORDER AFTER BEING READ BACK AND VERIFIED.
--- NOTE | 2019-03-01 07:00 | NUR ---
STARTED POTASSIUM CHLORIDE 20 MEQ KCL IV ORDERED
[2019-03-01] MEDS: POTASSIUM CHL 20MEQ/100ML 100 ML IV SCH ×2 (07:16→10:44)
[2019-03-01 08:00] VITALS: BP 115/68
--- NOTE | 2019-03-01 08:15 | NUR ---
Patient's blood sugar 56 mg/dl, patient given 16 oz of apple juice. Will continue to monitor.
--- NOTE | 2019-03-01 08:15 | NUR ---
Opening Shift Note Assumed care of patient, awake and alert. Primary Cambodian speaking but able to understand and speak basic Faroese. No S/S of distress/SOB or pain. Oxygen saturation 100% at room air. Flexi seal draining to liquid brown stool. Bed locked on low position, side rails up x2, bed alarms on at all times, call jerry within reach, instructed on POC and to call for assist PRN, will continue to monitor for changes Q1hr and PRN.
[2019-03-01] MEDS ORDERED: MAGNESIUM SULFATE 1GM/100ML 100 ML IV ONE (10:15)
--- NOTE | 2019-03-01 10:39 | NUR ---
Dr Correa at bedside, updated on patient's status. Patient seen and examined. Received verbal order for PT consult and to give additional Potassium 40 meq PO. Orders read back and verified. Will carry out.
[2019-03-01] MEDS: SOD CHL 0.9%/ KCL 40MEQ 1,000 ML IV SCH (10:44)
[2019-03-01] MEDS: LEVOFLOXACIN 500MG 100 ML IV SCH (10:44)
[2019-03-01] MEDS ORDERED: POTASSIUM CHL 20 Meq TABLET PO ONE (10:45)
--- NOTE | 2019-03-01 11:36 | NUR ---
Patient out of bed to bedside chair with PT, fall precautions in placed. Patient tolerated well.
[2019-03-01 12:00] VITALS: BP 110/72
[2019-03-01] MEDS ORDERED: PANTOPRAZOLE 40 MG TAB PO ONE (12:00)
--- NOTE | 2019-03-01 13:00 | NUR ---
Patient's blood sugar 67mg/dl, patient given 8 oz of orange juice. Will continue to monitor.
--- NOTE | 2019-03-01 13:30 | NUR ---
Patient accidentally pulled out Flexi seal while sitting up on chair per Gini ORTEZ
[2019-03-01 16:00] VITALS: BP 113/79
--- NOTE | 2019-03-01 16:00 | NUR ---
Patient's blood sugar 46mg/dl, patient given 16 oz of orange juice. D10 running at 100ml/hr. Will continue to monitor.
[2019-03-01 16:29] LABS: Magnesium 1.9 mg/dL (1.6-2.6); Potassium 3.7 mmol/L (3.5-5.1)
--- NOTE | 2019-03-01 16:30 | NUR ---
Patient back to bed from bedside chair assisted by Quoc SEAY, fall precautions in placed. Patient tolerated well.
--- NOTE | 2019-03-01 17:30 | NUR ---
Stool sample sent to lab
--- NOTE | 2019-03-01 19:10 | NUR ---
OPENING SHIFT RECEIVED REPORT FROM DAY SHIFT RN. ASSUMED CARE OF PATIENT. PATIENT IN BED EATING DINNER WITH NO SIGNS OR SYMPTOMS OF SOB, PAIN OR DISTRESS. CURRENTLY ON ROOM AIR, 02 SAT - 97%. LEFT UPPER ARM MIDLINE AND LEFT EXTERNAL JUGULAR IV - CLEAN/DRY/INTACT. REPOSITIONED FOR COMFORT. BED IN LOWEST POSITION, SIDE RAILS UP X2, CALL LIGHT WITHIN REACH. WILL CONTINUE TO MONITOR.
--- NOTE | 2019-03-01 20:00 | NUR ---
LOW BLOOD SUGAR BLOOD SUGAR - 66. CRANBERRY OLIVA JUICE WITH 2 SUGAR PACKS GIVEN. WILL CONTINUE TO MONITOR.
[2019-03-01 20:16] VITALS: BP 109/71
--- NOTE | 2019-03-01 20:30 | NUR ---
LOW BLOOD SUGAR BLOOD SUGAR - 51. HYPOGLYCEMIC PROTOCOL INITIATED. WILL CONTINUE TO MONITOR.
[2019-03-01] MEDS: DEXTROSE (50%) 50ML SYRG IV PRN (20:33)
--- NOTE | 2019-03-01 21:18 | NUR ---
BLOOD SUGAR BLOOD SUGAR - 203. WILL CONTINUE TO MONITOR.
[2019-03-02] MEDS: DEXTROSE (50%) 50ML SYRG IV PRN ×3 (00:08→12:06)
[2019-03-02 00:21] VITALS: BP 94/58
[2019-03-02] MEDS: ACCU-CHEK COMFORT CURVE STRIP VI SCH ×13 (00:23→23:51)
[2019-03-02] MEDS: InsuLIN REG 1unit/0.01ml Soln (100units/ml) SC SCH ×13 (02:00→23:52)
--- NOTE | 2019-03-02 02:15 | NUR ---
MORNING CARE PERFORMED MORNING CARE WITH WASH CLOTHS. FULL LINEN CHANGE AND GOWN CHANGED. REPOSITIONED FOR COMFORT. SKIN REASSESSED AT THIS TIME. BED IN LOWEST POSITION, SIDE RAILS UPX2, CALL LIGHT WITHIN REACH. WILL CONTINUE TO MONITOR.
--- NOTE | 2019-03-02 03:57 | NUR ---
BS 57 , GIVEN ORANGE JUICE WITH 2 PKG SUGAR PO
[2019-03-02 03:58] VITALS: BP 101/63
[2019-03-02] MEDS: DEXTROSE 10% 1,000 ML IV SCH ×3 (04:21→12:06)
--- NOTE | 2019-03-02 04:25 | NUR ---
HOSPITALIST PAGED HOSPITALIST. AWAITING CALL BACK.
--- NOTE | 2019-03-02 04:29 | NUR ---
HOSPITALIST HOSPITALIST CALLED BACK. MADE AWARE ABOUT FLUCTUATING BLOOD SUGARS, LOWEST BLOOD SUGAR - 52. HOSPITALIST GAVE ORDERS TO INCREASE D10 RATE TO 125.
[2019-03-02] MEDS ORDERED: DEXTROSE 10% 1,000 ML IV SCH (04:30)
[2019-03-02 05:50] LABS: Hemoglobin 7.8 g/dL (12.2-16.2)
[2019-03-02 06:06] LABS: Anion Gap 8 (5-15); BUN/Creatinine Ratio 3.4; Blood Urea Nitrogen 2 mg/dL (7-18); Calcium 6.9 mg/dL (8.5-10.1); Carbon Dioxide 15 mmol/L (21-32); Chloride 116 mmol/L (98-107); GFR African American 138 mL/min; GFR Non-African American 114 mL/min; Glucose 120 mg/dL (74-106); Magnesium 1.7 mg/dL (1.6-2.6); Potassium 3.3 mmol/L (3.5-5.1); Sodium 139 mmol/L (136-145)
--- NOTE | 2019-03-02 06:50 | NUR ---
HOSPITALIST PAGED CALLED BACK. MADE AWARE ABOUT POTASSIUM - 3.3, GAVE ORDERS TO GIVE 25 POTASSIUM EFFERVESCENT PO. WILL CONTINUE TO MONITOR.
[2019-03-02] MEDS ORDERED: POTASSIUM EFFERVESENT TAB 25 MEQ PO ONE (07:00)
--- NOTE | 2019-03-02 07:13 | NUR ---
END OF SHIFT REPORT GIVEN TO DAY SHIFT RN. CARE ENDORSED.
--- NOTE | 2019-03-02 07:45 | NUR ---
Opening Shift Note Assumed care of patient, awake and alert. No S/S of distress/SOB or pain. Patient saturation 100% at room air. See interventions for complete assessment. Bed locked on low position, side rails up x2, bed alarms on at all times, call jerry within reach, instructed on POC and to call for assist PRN, will continue to monitor for changes Q1hr and PRN.
[2019-03-02 08:00] VITALS: BP 105/60
--- NOTE | 2019-03-02 09:14 | NUR ---
Kiana HERNANDEZ at bedside, updated on patient's status. Patient seen and examined. No new orders at this time. Addendum: 03/02/19 at 0916 by Val Peacock RN wrong patient
[2019-03-02] MEDS: PANTOPRAZOLE 40 MG TAB PO SCH (09:26)
[2019-03-02] MEDS: LEVOFLOXACIN 500MG 100 ML IV SCH (09:32)
[2019-03-02] MEDS: SOD CHL 0.9%/ KCL 40MEQ 1,000 ML IV SCH (09:32)
[2019-03-02] MEDS ORDERED: MAGNESIUM SULFATE 1GM/100ML 100 ML IV ONE (10:00)
--- NOTE | 2019-03-02 10:10 | NUR ---
Dr Correa at bedside, updated on patient's status. Patient seen and examined. Received verbal order to decreased D10 to 100ml/hr, start patient on soft diet, place dietary consult and Ensure TID with meals. Orders read back and verified. Will carry out.
--- NOTE | 2019-03-02 10:15 | NUR ---
Patient blood sugar 61mg/dl, patient given 8 oz of juice, will continue to monitor.
[2019-03-02] MEDS ORDERED: POTASSIUM CHL 20 Meq TABLET PO ONE (11:15)
--- NOTE | 2019-03-02 11:30 | NUR ---
Patient out of bed to bedside chair with Priyank SCOTT, fall precautions in placed. Patient tolerated well.
--- NOTE | 2019-03-02 11:58 | NUR ---
Nutrition Consult and Follow-up Notes Wt.: 48.3 kg as of yesterday Pt denies any discomfort during rounds earlier. 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 Pt's on Full Liquid diet with good PO intake aeb 80% ave. consumed meals (x5) in last 2 days. Noted pt's to start today on Soft diet with Ensure High Protein 1 carton TID. Est. Needs: 1300 kcal to 1550 kcal (30-35 kcal/kgBW), 44 gms to 57 gms pro (1.0-1.3 gms/kgBW d/t severe hypoalbuminemia). Will continue to monitor pertinent labs and reassess nutrient need prn Labs: Gluc 120 L, Cl 116 H, K 3.3 L, CO2 15 L, BUN 2 L, Ca 6.9 L, Alb 2.5 L, HbA1c 4.3 wnl Skin: Elan scale 16, mod risk, skin intact per casino gaming inspector. GI: Pt had 5 ml stool output this morning per casino gaming inspector. PES: Partially resolved: Increased nutrient needs r/t acute/chronic medical status aeb Intractable abdominal pain,Small bowel obstruction,Anemia, severe hypoalbuminemia,NPO Altered nutrition related lab values r/t current/chronic medical condition aeb hyper/hypoglycemia,hypokalemia, hypocalcemia, low Mg. Severe hypoalbuminemia Will continue to monitor PO intake, skin status, pertinent labs and weight trend. F/u in 3 to 5 days. Rec.: 1.) Continue close supervision and feeding assistance prn during meals. 2.) If Albumin continues trending down, consider Prostat 1 pkt BID. 3.) Refer pt to CDE/RD for further nutrition education and weight monitoring upon discharge. 4.) Continue current plan of care. Thank you for this consult.
[2019-03-02 12:00] VITALS: BP 114/79
--- NOTE | 2019-03-02 12:15 | NUR ---
Patient's blood sugar 35 mg/dl, patient given D50%, D10 running at 100ml/hr, blood sugar increased to 65mg/dl. Will continue to monitor.
[2019-03-02] MEDS: Ensure HIGH Protein Chocolate 8oz Bottle PO SCH ×2 (13:40→18:06)
--- NOTE | 2019-03-02 14:11 | NUR ---
Dr Pryor at bedside, updated on patient's status. Patient seen and examined. Will carry out new orders.
--- NOTE | 2019-03-02 14:20 | NUR ---
Patient blood sugar 43 mg/dl, 8 oz orange juice given. D10 running at 100mls/hr. Will continue to monitor.
[2019-03-02 15:50] VITALS: BP 107/74
--- NOTE | 2019-03-02 15:50 | NUR ---
Patient's blood sugar 50mg/dl. Patient given 16 oz of orange juice, D10 running at 100ml/hr. Will continue to monitor.
--- NOTE | 2019-03-02 16:02 | NUR ---
Patient back to bed from bedside chair with PT, fall precautions in placed. Patient tolerated well.
[2019-03-02 20:00] VITALS: BP 103/69
[2019-03-03] VITALS (7 sets, daily range): BP systolic 92–115; BP diastolic 55–78
[2019-03-03] MEDS: InsuLIN REG 1unit/0.01ml Soln (100units/ml) SC SCH ×11 (02:00→22:00)
[2019-03-03] MEDS: ACCU-CHEK COMFORT CURVE STRIP VI SCH ×11 (02:27→22:00)
[2019-03-03] MEDS: DEXTROSE 10% 1,000 ML IV SCH ×2 (02:28→16:46)
--- NOTE | 2019-03-03 04:00 | NUR ---
Glucose 61, IVF increased 120ml/hr.
[2019-03-03 05:28] LABS: Hemoglobin 7.3 g/dL (12.2-16.2)
[2019-03-03 05:31] LABS: Hematocrit 23.5 % (36.0-46.0)
[2019-03-03 05:52] LABS: Potassium 4.3 mmol/L (3.5-5.1)
[2019-03-03 05:59] LABS: BUN/Creatinine Ratio 11.3; Calcium 7.5 mg/dL (8.5-10.1); Magnesium 1.6 mg/dL (1.6-2.6)
--- NOTE | 2019-03-03 08:00 | NUR ---
Opening Shift Note Assumed care of patient, awake and alert. No S/S of distress/SOB or pain. See interventions for complete assessment. LT EJ IV occluded, discontinued. Bed locked on low position, side rails up x2, bed alarms on at all times, call jerry within reach, instructed on POC and to call for assist PRN, will continue to monitor for changes Q1hr and PRN.
--- NOTE | 2019-03-03 08:15 | NUR ---
Patient's blood sugar 65mg/dl, D10 running at 100ml/hr. Patient given breakfast tray. Will continue to monitor.
[2019-03-03] MEDS: Ensure HIGH Protein Chocolate 8oz Bottle PO SCH ×3 (09:24→18:06)
[2019-03-03] MEDS: PANTOPRAZOLE 40 MG TAB PO SCH (10:15)
--- NOTE | 2019-03-03 10:20 | NUR ---
Dr Roberto at bedside, updated on patient's status. Patient seen and examined. Will carry out new orders.
--- NOTE | 2019-03-03 11:30 | NUR ---
Patient ambulated two laps around nurse station using walker, fall precautions in place. Patient tolerated well. Patient sitting on bedside chair at this time.
--- NOTE | 2019-03-03 12:00 | NUR ---
Stool sample sent to lab
--- NOTE | 2019-03-03 12:15 | NUR ---
Patient 's blood sugar 43mg/dl. Patient given 16 oz of orange juice. D10 running at 100ml/hr. Will continue to monitor.
--- NOTE | 2019-03-03 16:12 | NUR ---
Patient's blood sugar 56mg/dl. Patient given 8 oz of orange juice. D10 at 100ml//hr. Will continue to monitor.
[2019-03-04] VITALS: BP 105/69
[2019-03-04] MEDS: DEXTROSE 10% 1,000 ML IV SCH ×3 (01:33→23:30)
[2019-03-04] MEDS: InsuLIN REG 1unit/0.01ml Soln (100units/ml) SC SCH ×12 (02:00→22:00)
[2019-03-04] MEDS: ACCU-CHEK COMFORT CURVE STRIP VI SCH ×12 (02:00→22:00)
[2019-03-04 04:00] VITALS: BP 105/64
--- NOTE | 2019-03-04 06:55 | NUR ---
Pt received a partial linen change and a CHG bath.
--- NOTE | 2019-03-04 07:30 | NUR ---
RECEIVED PATIENT SITTING UP IN THE BED A/O TIMES 4, WHEN NAME IS CALLED, O2 BY R/A, D10 INFUSING INTO THE NIRMALA MIDLINE AT 100ML/HR BY THE IV PUMP, GETS UP TO THE BSC,PER EVENT STAFF, DENIES PAIN,
[2019-03-04 08:00] VITALS: BP 112/59
--- NOTE | 2019-03-04 08:00 | NUR ---
BS 57 GAVE APPLE JUICE WITH SUGAR AND SHE WILL EAT HER BREAKFAST SHE SAYS
[2019-03-04] MEDS: Ensure HIGH Protein Chocolate 8oz Bottle PO SCH ×3 (08:21→18:17)
--- NOTE | 2019-03-04 08:30 | NUR ---
SAT UP IN BED AND FEED HERSELF BREAKFAST AND TOLERATED
--- NOTE | 2019-03-04 09:00 | NUR ---
EXPLAIN MEDICATIONS TO THE PATIENT REGARDING THE DOSAGE AN USAGE AND THE SIDE EFFECTS, STATED SHE UNDERSTOOD, USING HAND GESTURES TO HELP THE PATIENT UNDERSTAND Addendum: 03/04/19 at 1215 by Leslie Bundy RN CHANGE TIME TO 0955
--- NOTE | 2019-03-04 09:00 | NUR ---
GOT UP AND WALKED WITH PT IN THE UNIT ABOUT 200 FT AND TOLERATED WELL, PLACED PATIETN ON O2 AT 1L BECAUSE O2 SAT DROPS AND GOES BACK UP ON ITS OWN
[2019-03-04] MEDS: PANTOPRAZOLE 40 MG TAB PO SCH (09:55)
--- NOTE | 2019-03-04 10:00 | NUR ---
BS 100 , NOTHING GIVEN
--- NOTE | 2019-03-04 10:30 | NUR ---
DR TILLEY IN TO SEE THE PATIENT AND ORDERED HH FOR TODAY
[2019-03-04] MEDS ORDERED: cefTRIAXone 1GM/50ML D5W 50 ML IV ONE (10:45)
[2019-03-04 11:03] LABS: Basophils # (auto) 0 uL; Basophils % (auto) 0.6 % (0.0-2.0); Eosinophils # (auto) 0 uL; Monocytes # (auto) 0.7 uL; Monocytes % (auto) 17.9 % (0.0-12.0)
[2019-03-04 11:04] LABS: Eosinophils % (auto) 0.8 % (0.0-7.0); Hemoglobin 7.9 g/dL (12.2-16.2); Lymphocytes % (auto) 24.1 % (10.0-50.0); Mean Corpuscular Hemoglobin 22.5 pg (28.0-32.0); Mean Corpuscular Hgb Conc. 30.6 g/dL (32.0-36.0); Mean Corpuscular Volume 73.6 fL (80.0-100.0); Neutrophils # (auto) 2.2 uL; Neutrophils % (auto) 56.6 % (37.0-80.0); Nucleated Red Blood Cells % 0.1 %; Platelet Count (auto) 342 10^3/uL (140-450); Red Blood Cells 3.53 10^6/uL (4.0-5.20); White Blood Cell 3.9 10^3/uL (4.4-10.8)
[2019-03-04 11:11] LABS: Red Cell Distribution Width 23.8 % (11.8-14.3)
[2019-03-04 11:29] LABS: Alanine Aminotransferase 9 U/L (13-56); Albumin 2.3 g/dL (3.4-5.0); Alkaline Phosphatase 76 U/L (45-117); Anion Gap 8 (5-15); Aspartate Aminotransferase 7 U/L (15-37); BUN/Creatinine Ratio 11.5; Bilirubin, Total < 0.1 mg/dL (0.2-1.0); Blood Urea Nitrogen 7 mg/dL (7-18); Calcium 7.7 mg/dL (8.5-10.1); Carbon Dioxide 21 mmol/L (21-32); Chloride 110 mmol/L (98-107); GFR African American 132 mL/min; GFR Non-African American 109 mL/min; Glucose 91 mg/dL (74-106); Potassium 4.4 mmol/L (3.5-5.1); Sodium 139 mmol/L (136-145); Total Protein 6.3 g/dL (6.4-8.2)
--- NOTE | 2019-03-04 11:30 | NUR ---
PATIENT HAS GOTTEN UP TO THE BSC TIMES 2 WITHOUT HELP, JUST ASSISTANCE WITH THE MONITOR WIRES
[2019-03-04 12:00] VITALS: BP 113/71
--- NOTE | 2019-03-04 12:06 | NUR ---
FAMILY INTO VISIT WITH THE PATIENT, BS 78 JUST GAVE APPLE JUICE WITH 2 PACKETS OF SUGAR
--- NOTE | 2019-03-04 13:12 | NUR ---
SITTING UP IN THE CHAIR EATING HER LUNCH
--- NOTE | 2019-03-04 14:00 | NUR ---
CHECKED PATIENT'S BS WAS 63 WHEN TAKEN BY THE FINGER, PER THE FAMILY THEY SAY ITS MUCH BETTER IF YOU DO IT BY HER EAR,, CHECKED HER EAR THE BS WAS 76, FAMILY STATES THEY CHECK IT AT HOME BY THE EAR
--- NOTE | 2019-03-04 15:00 | NUR ---
sitting up in the chair with family at the bedside
--- NOTE | 2019-03-04 16:00 | NUR ---
BS 110, NO COVERAGE
--- NOTE | 2019-03-04 16:29 | NUR ---
GOTTEN BACK INTO THE BED WITH NO HELP NEEDED EXCEPT THE MONITOR WIRES AND THE IV TUBING.
--- NOTE | 2019-03-04 17:15 | NUR ---
GOTTEN UP TO THE BR AND URINATED
--- NOTE | 2019-03-04 18:00 | NUR ---
BS 79 PATIENT WILL EAT HER DINNER
[2019-03-04 18:07] LABS: Hematocrit 25.1 % (36.0-46.0); Hemoglobin 7.7 g/dL (12.2-16.2)
--- NOTE | 2019-03-04 18:37 | NUR ---
SITTING UP IN THE BED EATING HER DINNER, A/O TIMES 4, AT THE BEDSIDE, O2 AT 1L BY N/C, USES THE BSC, D10 INFUSING AT 100ML/HR BY THE IV PUMP INTO THE NIRMALA MIDLINE, DENIES PAIN AND SOB, HGB RECHECKED 7.7, NO BLOOD TO BE GIVEN, WILL CONTINUE TO MONITOR AND GIVE REPORT TO THE NEXT SHIFT
[2019-03-04 20:00] VITALS: BP 105/64
[2019-03-05] VITALS: BP 104/67
[2019-03-05] MEDS: InsuLIN REG 1unit/0.01ml Soln (100units/ml) SC SCH ×12 (02:00→22:00)
[2019-03-05] MEDS: ACCU-CHEK COMFORT CURVE STRIP VI SCH ×12 (02:00→22:00)
[2019-03-05 04:00] VITALS: BP 99/59
[2019-03-05 05:39] LABS: Hemoglobin 7.6 g/dL (12.2-16.2); Red Blood Cells 3.35 10^6/uL (4.0-5.20)
[2019-03-05 05:41] LABS: Hematocrit 24.5 % (36.0-46.0); Mean Corpuscular Hemoglobin 22.6 pg (28.0-32.0); Mean Corpuscular Hgb Conc. 30.9 g/dL (32.0-36.0); Mean Corpuscular Volume 73.2 fL (80.0-100.0); Platelet Count (auto) 327 10^3/uL (140-450); White Blood Cell 3.9 10^3/uL (4.4-10.8)
[2019-03-05 05:51] LABS: Red Cell Distribution Width 24.1 % (11.8-14.3)
[2019-03-05 05:52] LABS: Basophils % (manual) 0 (0.0-2.0); Blast Cells 0; Metamyelocytes % 0; Myelocytes % 0; Promyelocytes % 0; Reactive Lymphocytes 0
[2019-03-05 06:04] LABS: BUN/Creatinine Ratio 13.6; Calcium 7.5 mg/dL (8.5-10.1); Potassium 4.2 mmol/L (3.5-5.1)
[2019-03-05 06:43] LABS: Band Neutrophils % (manual) 11; Eosinophils % (manual) 1 (0-7); Lymphocytes % (manual) 20 (10.0-50.0)
[2019-03-05 06:45] LABS: Monocytes % (manual) 12 (0-12)
--- NOTE | 2019-03-05 07:30 | NUR ---
RECEIVED PATIENT SITTING UP IN THE BED, A/O TIMES 4 [place]IZ[place] SPEAKING BUT UNDERSTAND SOME [place], O2 AT 1L BY N/C, GETS UP TO THE BSC, D10 INFUSING INTO THE NIRMALA MIDLINE AT 100ML/HR BY THE IV PUMP, DENIES PAINS
--- NOTE | 2019-03-05 07:46 | NUR ---
Pt remained stable this shift. Blood sugars are not maintained well at night with D10 at 100ml/hr. Pt had to be supplemented with Juice, sugar packets in juice, and cookies and chet crackers. Report given, endorsed.
[2019-03-05 08:00] VITALS: BP 114/67
[2019-03-05] MEDS: Ensure HIGH Protein Chocolate 8oz Bottle PO SCH ×3 (08:00→17:36)
--- NOTE | 2019-03-05 08:00 | NUR ---
BS 77, GAVE APPLE JUICE WITH 2 PACKETS OF SUGAR AND EXPRESS TO HER THAT SHE NEEDS TO EAT HER BREAKFAST AND STATED SHE WILL
--- NOTE | 2019-03-05 08:20 | NUR ---
GOTTEN UP TO THE BSC WITHOUT HELP AND HAD A BM AND URINATED,BM WAS MIXED WITH URINE, APPEARED TO BE DIARRHEA
--- NOTE | 2019-03-05 08:52 | NUR ---
SITTING UP IN BED AN ATE HER BREAKFAST WITHOUT HELP
[2019-03-05] MEDS ORDERED: cefTRIAXone 1GM/50ML D5W 50 ML IV SCH (09:00)
--- NOTE | 2019-03-05 09:00 | NUR ---
WALKING WITH PT IN THE UNIT ABOUT 500 FEET USING THE WALKER TOLERATED WELL
[2019-03-05] MEDS: DEXTROSE 10% 1,000 ML IV SCH ×2 (09:44→20:00)
[2019-03-05] MEDS: PANTOPRAZOLE 40 MG TAB PO SCH (09:44)
--- NOTE | 2019-03-05 09:44 | NUR ---
EXPLAIN MEDICATIONS TO THE PATIENT REGARDING THE DOSAGE, USAGE AND THE SIDE EFFECTS, VERBALIZED THAT SHE UNDERSTOOD AND MEDS GIVEN ORDERED
--- NOTE | 2019-03-05 10:30 | NUR ---
DR CARRION IN TO SEE THE PATIENT
--- NOTE | 2019-03-05 10:51 | NUR ---
PATIENT SITTING UP IN THE CHAIR AND DOING OKAY SHE SAYS
[2019-03-05 12:00] VITALS: BP 109/78
--- NOTE | 2019-03-05 12:00 | NUR ---
SITTING UP IN THE CHAIR STILL DOING OKAY, O2 CHANGED TO R/A,
--- NOTE | 2019-03-05 13:00 | NUR ---
SITTING UP IN THE CHAIR NO COMPLAINTS
--- NOTE | 2019-03-05 14:40 | NUR ---
Nutrition Follow-up Notes Wt.: 47.5 kg based on bed scale as of 01/31/19 Pt's on oxygen via nasal cannula, sitting up on bedside chair, denies any discomfort during rounds this morning. Pt's on Soft diet with with Ensure High Protein 1 carton TID, has adequate PO intake aeb 80% ave. consumed meals (x6) in last 2.5 days. Est. Needs: 1300 kcal to 1550 kcal (30-35 kcal/kgBW), 44 gms to 57 gms pro (1.0-1.3 gms/kgBW d/t severe hypoalbuminemia). Will continue to monitor pertinent labs and reassess nutrient need prn Labs: Gluc 70 L, Cl 108 H, Ca 7.5 L; Alb 2.5 L, HbA1c 4.3 wnl Skin: Elan scale 16, mod risk, skin intact per sign artist. GI: Pt had 2x BM this morning per sign artist. PES: Partially Resolved: Increased nutrient needs r/t acute/chronic medical status aeb Intractable abdominal pain,Small bowel obstruction,Anemia, severe hypoalbuminemia,NPO Altered nutrition related lab values r/t current/chronic medical condition aeb hyper/hypoglycemia,hypokalemia, hypocalcemia, low Mg. Severe hypoalbuminemia Will continue to monitor PO intake, skin status, pertinent labs and weight trend. F/u in 3 to 5 days. Rec.: 1.) Continue close supervision and feeding assistance prn during meals. 2.) If Albumin continues trending down, consider Prostat 1 pkt BID. 3.) Refer pt to CDE/RD for further nutrition education and weight monitoring upon discharge. 4.) Continue current plan of care.
--- NOTE | 2019-03-05 15:05 | NUR ---
IN TO SEE THE PATIENT
--- NOTE | 2019-03-05 15:37 | NUR ---
UP TO THE BSC WITHOUT HELP AND TOLERATED, O2 BY R/A 100%
[2019-03-05 16:00] VITALS: BP 99/78
--- NOTE | 2019-03-05 16:21 | NUR ---
SITTING UP IN THE HAIR WATCHNG TV AT THE BEDSIDE, NO COMPLAINTS OF PAIN
--- NOTE | 2019-03-05 16:59 | NUR ---
LEFT AND DAUGHTER IN TO VISIT WITH THE PATIENT
--- NOTE | 2019-03-05 17:21 | NUR ---
SITTING UP IN THE CHAIR TALKING TO HER DAUGHTER
--- NOTE | 2019-03-05 17:56 | NUR ---
UP TO THE BSC NO HELP NEEDED
--- NOTE | 2019-03-05 18:22 | NUR ---
BACK SITTING UP IN THE CHAIR, DAUGHTER AT THE BEDSIDE, O2 BY R/A, O2 SAT 100%, USES THE BSC, D10 INFUSING INTO THE NIRMALA MIDLINE AT 100ML/HR BY THE IV PUMP, A/O TIMES 4, NO COMPLAINTS OF PAIN OR SOB, WILL CONTINUE TO MONITOR AND GIVE REPORT TO THE NEXT SHIFT
[2019-03-05 20:00] VITALS: BP 102/74
--- NOTE | 2019-03-05 20:00 | NUR ---
PATIENT ADMITTED WITH ABDOMINAL PAIN. RULED OUT AN SBO. 02/27 HAD A COLONOSCOPY. PLAN FOR DISCHARGE. Q 2 HOUR ACCUCHECKS. D10 AT 100CC/HR. STATES THAT DIARRHEA IS BETTER. EATING. ALERT. ORIENTED. MOSTLY [place] SPEAKING. SON DID SOME TRANSLATING FOR THE ASSESSMENT. PATIENT STATED THAT SHE WANTS TO GO HOME. I EXPLAINED HER SITUATION. NSR 70S WITHOUT ECTOPY. BP STABLE.
--- NOTE | 2019-03-05 22:00 | NUR ---
UP TO COMMODE TO VOID. STABLE ON FEET.VOIDED CLEAR YELLOW LIQUID.
[2019-03-06] VITALS (9 sets, daily range): BP systolic 89–113; BP diastolic 51–71
--- NOTE | 2019-03-06 | NUR ---
UP TO COMMODE TO VOID. ACCUCHECKS WITHIN RANGE. NO INSULIN GIVEN.
[2019-03-06] MEDS: ACCU-CHEK COMFORT CURVE STRIP VI SCH ×12 (02:00→21:19)
[2019-03-06] MEDS: InsuLIN REG 1unit/0.01ml Soln (100units/ml) SC SCH ×12 (02:00→21:19)
--- NOTE | 2019-03-06 02:00 | NUR ---
UP TO COMMODE TO VOID. VOIDED CLEAR YELLOW LIQUID. NSR WITHOUT ECTOPY. MIDLINE DRESSING CLEAN AND DRY.
--- NOTE | 2019-03-06 05:00 | NUR ---
BATH AND LINEN CHANGE
[2019-03-06 05:26] LABS: Hematocrit 25.6 % (36.0-46.0); Hemoglobin 7.7 g/dL (12.2-16.2)
[2019-03-06 05:47] LABS: BUN/Creatinine Ratio 23.3; Calcium 7.6 mg/dL (8.5-10.1); Magnesium 1.5 mg/dL (1.6-2.6); Potassium 4.1 mmol/L (3.5-5.1)
[2019-03-06] MEDS: DEXTROSE 10% 1,000 ML IV SCH ×2 (06:00→11:00)
[2019-03-06] MEDS: Ensure HIGH Protein Chocolate 8oz Bottle PO SCH ×3 (08:00→17:48)
--- NOTE | 2019-03-06 08:50 | NUR ---
NUTRITION Patient finished eating breakfast independently ate 100% of meal, tolerated well.
--- NOTE | 2019-03-06 09:15 | NUR ---
ELIMINATION Patient up out of bed and into bedside commode to void. Voided a mixture of urine and bowel movement. Patient then sitting in chair. Will continue to monitor patient closely.
[2019-03-06] MEDS: PANTOPRAZOLE 40 MG TAB PO SCH (09:48)
--- NOTE | 2019-03-06 10:20 | NUR ---
MD Dr. Correa paged regarding MG level of 1.5, awaiting for MD to call back.
--- NOTE | 2019-03-06 10:55 | NUR ---
MD Dr. Correa at bedside updated on patient condition with new orders, this RN to input into system. aware of MG 1.5.
--- NOTE | 2019-03-06 11:45 | NUR ---
ACTIVITY Patient continues to be up in chair, tolerating well and visiting with daughter.
[2019-03-06] MEDS: MAGNESIUM SULFATE 1GM/100ML 100 ML IV SCH ×2 (11:58→13:30)
--- NOTE | 2019-03-06 13:45 | NUR ---
NUTRITION Patient finished lunch independently ate 100%, patient tolerated well.
--- NOTE | 2019-03-06 14:20 | NUR ---
ELIMINATION Patient got up out of chair and was able to use the bedside commode. Patient void.
--- NOTE | 2019-03-06 21:14 | NUR ---
BLOOD SUGAR FIRST CHECK 64, SECOND CHECK 71 PATIENT PROVIDED 2 JUICES, WILL CONTINUE MONITORING
[2019-03-07] MEDS: ACCU-CHEK COMFORT CURVE STRIP VI SCH ×13 (00:03→23:41)
--- NOTE | 2019-03-07 00:27 | NUR ---
AM CARE/LINEN CHANGE COMPLETE LINEN CHANGE DONE AND ASSISTED PATIENT WITH CHG WIPES. NEW GOWN PLACED ON PATIENT.
--- NOTE | 2019-03-07 00:29 | NUR ---
Midline Dressing Changes PICC line dressing change done with a sterile technique. Cleansed with chloraprep scrub/betadine. Stat lock, and bio-patch as available. Occlusive dressing applied. Patient tolerated well.
[2019-03-07 01:10] VITALS: BP 96/60
[2019-03-07] MEDS: InsuLIN REG 1unit/0.01ml Soln (100units/ml) SC SCH ×13 (02:00→23:41)
[2019-03-07 04:00] VITALS: BP 135/73
--- NOTE | 2019-03-07 07:30 | NUR ---
Opening Shift Note Assumed care of patient, awake and alert. No S/S of distress/SOB or pain. See interventions for complete assessment. Bed locked on low position, side rails up x2, bed alarms on at all times, call jerry within reach, instructed on POC and to call for assist PRN, will continue to monitor for changes Q1hr and PRN.
--- NOTE | 2019-03-07 07:32 | NUR ---
END OF SHIFT PATIENT RESTING IN BED, NO S/S OF DISTRESS OR SOB. POX 100, RR 16, HR 91 BP 100/60. REMAINED STABLE THROUGHOUT THE NIGHT. CARE ENDORSED TO DAY SHIFT RN.
[2019-03-07 08:00] VITALS: BP 114/73
--- NOTE | 2019-03-07 08:15 | NUR ---
Patient's blood sugar 60mg/dl, patient given 8 oz of juice and breakfast tray. D10 running at 75 ml/hr. Will continue to monitor.
[2019-03-07] MEDS: Ensure HIGH Protein Chocolate 8oz Bottle PO SCH ×3 (09:50→17:35)
[2019-03-07] MEDS: PANTOPRAZOLE 40 MG TAB PO SCH (09:55)
[2019-03-07] MEDS: DEXTROSE 10% 1,000 ML IV SCH (09:55)
[2019-03-07 12:00] VITALS: BP 98/61
--- NOTE | 2019-03-07 12:08 | NUR ---
Dr Correa at bedside, updated on patient's status. Patient seen and examined. Received verbal order to temporarily decreased D10 at 40ml/hr and monitor blood sugar. Orders read back and verified. Will carry out.
[2019-03-07] MEDS ORDERED: DEXTROSE 10% 1,000 ML IV SCH (12:45)
[2019-03-07 16:00] VITALS: BP 102/65
--- NOTE | 2019-03-07 16:24 | NUR ---
Spoke to Dr Correa, updated on patient's status. Informed of patient's blood sugar trends. Received verbal order to discontinue D10. Orders read back and verified. Will carry out.
--- NOTE | 2019-03-07 16:26 | NUR ---
D10 discontinued. Will continue to monitor.
--- NOTE | 2019-03-07 19:35 | NUR ---
OPEN SHIFT NOTE PATIENT AWAKE AND ALERT AND ORIENTED , RESTING IN BED ALONGSIDE TWO FAMILY MEMBERS. NO S/S OF DISTRESS OR SOB, DENIES PAIN. DINNER TRAY REMOVED FROM ROOM PER PATIENT REQUEST, ATE 90% OF DINNER. PATIENT EDUCATED ON POC, VERBALIZES UNDERSTANDING. COMPLETE PHYSICAL ASSESSMENT DONE: SEE INTERVENTIONS. INSTRUCTED TO CALL PRN, CALL LIGHT WITHIN EASY REACH OF PATIENT. PROVIDED PATIENT WITH WO ORANGE JUICES TO SIP THROUGHOUT THE NIGHT. WILL CONTINUE POC AND MONITORING.
[2019-03-07 20:00] VITALS: BP 106/65
[2019-03-08] VITALS: BP 107/67
--- NOTE | 2019-03-08 01:44 | NUR ---
HYPOGLYCEMIA BLOOD SUGAR 54, SECOND CHECK 58 TWO JUICES PROVIDED, YIN CRACKERS AND SWEET LOLLIPOP PROVIDED. WILL REASSESS FOR EFFECTIVENESS.PATIENT DENIES ANY SYMPTOMS.
[2019-03-08] MEDS: InsuLIN REG 1unit/0.01ml Soln (100units/ml) SC SCH ×7 (01:48→14:00)
[2019-03-08] MEDS: ACCU-CHEK COMFORT CURVE STRIP VI SCH ×7 (01:48→14:11)
--- NOTE | 2019-03-08 02:10 | NUR ---
BLOOD SUGAR RECHECK: NOW 77 PROVIDED PATIENT WITH OWN CUP OF ORANGE JUICE FROM HOME ENCOURAGED PATIENT TO SIP THROUGHOUT THE NIGHT TO PREVENT HYPOGLYCEMIA, PATIENT VERBALIZES UNDERSTANDING
[2019-03-08 05:55] LABS: Hematocrit 24.2 % (36.0-46.0)
[2019-03-08 05:59] LABS: Hemoglobin 7.4 g/dL (12.2-16.2)
[2019-03-08 06:00] VITALS: BP 105/68
[2019-03-08 06:36] LABS: Magnesium 1.9 mg/dL (1.6-2.6); Potassium 4.6 mmol/L (3.5-5.1)
[2019-03-08 06:38] LABS: BUN/Creatinine Ratio 38.5; Calcium 7.4 mg/dL (8.5-10.1)
--- NOTE | 2019-03-08 06:43 | NUR ---
AM CARE COMPLETE BED BATH PROVIDED USING CHG WIPES AND WARM WASH CLOTHS TO FACE AND PERINEAL AREA. PARTIAL LINEN CHANGE DONE AND NEW GOWN PLACED ON PATIENT. PATIENT TOLERATED WELL.CALL LIGHT GIVEN TO PATIENT.
[2019-03-08 08:00] VITALS: BP 106/73
--- NOTE | 2019-03-08 09:30 | NUR ---
Patient's daughter Lucía at bedside, updated on patient's status and POC. All questions and concerns addressed.
[2019-03-08] MEDS: Ensure HIGH Protein Chocolate 8oz Bottle PO SCH ×2 (09:39→13:01)
[2019-03-08] MEDS: PANTOPRAZOLE 40 MG TAB PO SCH (09:55)
[2019-03-08] MEDS ORDERED: MAGNESIUM SULFATE 1GM/100ML 100 ML IV ONE (10:30)
--- NOTE | 2019-03-08 10:40 | NUR ---
Dr Correa at bedside, updated on patient's status. Patient seen and examined. Will carry out new orders
[2019-03-08] MEDS ORDERED: PANT40TA2 PO (11:59)
[2019-03-08 12:00] VITALS: BP 117/79
--- NOTE | 2019-03-08 13:06 | NUR ---
Patient doesn't have PCP at this time. Patient and daughter Lucía refused to be referred to Continuing Patient Practice Representative Florencio Bernabe and states "We'll just go to [facility], will take care of that."
[2019-03-08 13:15] VITALS: BP 117/79
--- NOTE | 2019-03-08 13:50 | NUR ---
Discharge packet and instruction given to patient and daughter Lucía at bedside. Patient and daughter verbalized understanding.
--- NOTE | 2019-03-08 14:00 | NUR ---
LT upper arm midline discontinued with sterile technique, catheter fully intact. Pressure dressing applied to site. Patient tolerated procedure well. Discharged with aftercare instructions per MD.
--- NOTE | 2019-03-08 14:08 | NUR ---
Discharge instructions given as ordered. Encourage to follow up with PMD as instructed. All questions and concerns addressed. Patient and daughter verbalized understanding. IV removed with catheter intact, pressure dressing applied. Patient taken to vehicle via wheelchair accompanied by staff and daughter Lucía. No distress noted at time of departure. Accucheck 90mg/dl.
== END 2019-03-08 14:26 | disposition home or self-care (01) | DRG 247 ==
LOC: ER 10:49 → OVERFLOW 10:50 → EAST 16:25 → DOU IN ICU 02-27 20:23
PROVIDERS: ADMIT Nurse Practitioner Acute Care; ATTEND Internal Medicine
PROC: 0D9670Z Drainage of Stomach with Drainage Device, Via Natural or Artificial Opening (ICD-10-PCS; 2019-02-26)
PROC: 0DJD8ZZ Inspection of Lower Intestinal Tract, Via Natural or Artificial Opening Endoscopic (ICD-10-PCS; principal; 2019-02-27 13:02)
PROC: 30233N1 Transfusion of Nonautologous Red Blood Cells into Peripheral Vein, Percutaneous Approach (ICD-10-PCS; 2019-02-28)
DX: K56.699 Other intestinal obstruction unspecified as to partial versus complete obstruction (principal); N17.0 Acute kidney failure with tubular necrosis; R65.10 Systemic inflammatory response syndrome (SIRS) of non-infectious origin without acute organ dysfunction; E09.649 Drug or chemical induced diabetes mellitus with hypoglycemia without coma; E44.0 Moderate protein-calorie malnutrition; D50.9 Iron deficiency anemia, unspecified; E87.6 Hypokalemia; I10 Essential (primary) hypertension; I70.8 Atherosclerosis of other arteries; K21.9 Gastro-esophageal reflux disease without esophagitis; Z79.84 Long term (current) use of oral hypoglycemic drugs; Z68.21 Body mass index [BMI] 21.0-21.9, adult; Z82.49 Family history of ischemic heart disease and other diseases of the circulatory system; Z83.3 Family history of diabetes mellitus; T38.3X5A Adverse effect of insulin and oral hypoglycemic [antidiabetic] drugs, initial encounter
CPT/HCPCS: 36415; 45378; 71045; 74176; 80048; 80053; 81001; 82270; 82962; 83036; 83540; 83550; 83690; 83735; 84132; 84443; 85007; 85014; 85018; 85025; 85027; 85610; 85730; 86850; 86870; 86880; 86900; 86901; 86902; 86905; 86922; 86971; 87040; 87045; 87086; 87427; 87493; 94761; 96361; 96374; 97110; 97116; 97163; 97530; 99291; G0378; J0696; J1956; J2250; J2405; J3480; J3490

== ENCOUNTER 2019-03-27 10:35 | Emergency (ER) | payer MEDICAID ==
[~2019-03-27 10:35] MED LIST changes: -METF-370 PO; -METR500T14 PO; -TRAM50TA2 PO
== END 2019-03-27 10:50 | disposition left against medical advice (07) ==
LOC: ER 10:35
DX: E16.2 Hypoglycemia, unspecified (principal); Z53.21 Procedure and treatment not carried out due to patient leaving prior to being seen by health care provider

== ENCOUNTER 2019-11-20 18:54 | Inpatient (IN) | payer MEDICAID ==
[~2019-11-20] VITALS: Ht 152.4 cm; Wt 48.6 kg
[2019-11-20] MEDS ORDERED: SODIUM CHLORIDE 0.9% 1,000 ML IV ONE (19:14)
[2019-11-20 22:18] LABS: Eosinophils # (auto) 0 10 ^3/uL (0-0.8); Hemoglobin 11.1 g/dL (12.2-16.2); Monocytes # (auto) 0.7 10 ^3/uL (0-1.3)
[2019-11-20 22:21] LABS: Basophils # (auto) 0.3 10 ^3/uL (0-0.2); Basophils % (auto) 1.1 % (0.0-2.0); Hematocrit 34.5 % (36.0-46.0); Lymphocytes # (auto) 0.7 10 ^3/uL (0.4-5.4); Lymphocytes % (auto) 2.7 % (10.0-50.0); Mean Corpuscular Hemoglobin 22.7 pg (28.0-32.0); Mean Corpuscular Hgb Conc. 32.1 g/dL (32.0-36.0); Mean Corpuscular Volume 70.8 fL (80.0-100.0); Monocytes % (auto) 2.6 % (0.0-12.0); Neutrophils # (auto) 26.1 10 ^3/uL (1.6-8.6); Neutrophils % (auto) 93.6 % (37.0-80.0); Platelet Count (auto) 352 10^3/uL (140-450); Red Blood Cells 4.87 10^6/uL (4.0-5.20); White Blood Cell 27.9 10^3/uL (4.4-10.8)
[2019-11-20 22:23] LABS: Red Cell Distribution Width 20.4 % (11.8-14.3)
[2019-11-20 22:27] LABS: Albumin 2.1 g/dL (3.4-5.0); BUN/Creatinine Ratio 12.2; Calcium 7.8 mg/dL (8.5-10.1)
[2019-11-20 22:32] LABS: Bilirubin, Total 0.6 mg/dL (0.2-1.0); Total Protein 6.4 g/dL (6.4-8.2)
[2019-11-20] MEDS ORDERED: levoFLOXacin 750MG 150 ML IV ONE ×2 (22:45→23:00)
[2019-11-20] MEDS ORDERED: POTASSIUM CHL 20MEQ/100ML 100 ML IV ONE (23:00)
[2019-11-20] MEDS ORDERED: cefTRIAXone 1GM/50ML D5W 50 ML IV ONE (23:00)
[2019-11-20] MEDS ORDERED: POTASSIUM EFFERVESENT TAB 25 MEQ GT ONE (23:00)
[2019-11-20] MEDS ORDERED: SODIUM CHLORIDE 0.9% 1,750 ML IV ONE (23:00)
[2019-11-20] MEDS ORDERED: SODIUM BICARBONATE 8.4% INJ 50ML SYRINGE ONE (23:58)
[2019-11-21] MEDS ORDERED: DEXTROSE 50% SYRINGE 50 ML IV ONE ×6 (00:11→20:00)
[2019-11-21] MEDS ORDERED: NITROGLYCERIN 0.4 MG SL TAB SL PRN (00:45)
[2019-11-21] MEDS ORDERED: MORPHINE SULF INJ 2 MG/ML SYRINGE 1ML IV PRN (00:45)
[2019-11-21] MEDS ORDERED: DEXTROSE (50%) 50ML SYRG IV ONE ×3 (00:45→04:00)
[2019-11-21] MEDS ORDERED: ONDANSETRON HCL 4 MG/2 ML VIAL IV PRN (00:45)
[2019-11-21] MEDS ORDERED: ACETAMINOPHEN 325 MG TAB PO PRN (00:45)
[2019-11-21] MEDS: DEXTROSE 10% 1,000 ML IV SCH ×3 (01:15→21:19)
[2019-11-21] MEDS ORDERED: GLUCAGON HYDROCHLORIDE (RDNA) 1 MG VIAL IM ONE (02:00)
[2019-11-21 02:41] LABS: BUN/Creatinine Ratio 12.5; Calcium 7.2 mg/dL (8.5-10.1); Magnesium 1.7 mg/dL (1.6-2.6)
[2019-11-21 02:43] LABS: CRP High Sensitivity 9.16 mg/dL (< 0.3)
[2019-11-21 02:47] LABS: Potassium 1.8 mmol/L (3.5-5.1)
[2019-11-21] MEDS ORDERED: POTASSIUM CHL 20 Meq TABLET PO ONE (03:00)
[2019-11-21] MEDS ORDERED: SODIUM BICARBONATE 8.4% INJ 50ML SYRINGE ONE (03:02)
[2019-11-21] MEDS ORDERED: SODIUM BICARBONATE 50ML VIAL 150 ML in D5W 5% 1,000 ML IV ONE (03:15)
[2019-11-21] MEDS ORDERED: SODIUM BICARBONATE 8.4 % INJ 50ML VIAL IV ONE ×2 (03:15)
[2019-11-21] MEDS: POTASSIUM CHL 20MEQ/100ML 100 ML IV SCH ×7 (03:29→22:49)
[2019-11-21] MEDS: ACCU-CHEK COMFORT CURVE STRIP VI SCH ×5 (04:00→21:20)
[2019-11-21] MEDS: InsuLIN REG 1unit/0.01ml Soln (100units/ml) SC SCH ×5 (04:00→20:00)
[2019-11-21] MEDS ORDERED: cefTRIAXone 1GM/50ML D5W 50 ML IV SCH (09:00)
[2019-11-21] MEDS ORDERED: DOXYCYCLINE 100MG/250ML 250 ML IV SCH (10:00)
[2019-11-21] MEDS: ZINC SULFATE 220mg CAP or TAB PO SCH (11:41)
[2019-11-21] MEDS: ASCORBIC ACID 1,000 MG TAB PO SCH (11:41)
[2019-11-21] MEDS: CHOLECALCIFEROL (VITD3) 2,000 UNIT CAP PO SCH (11:42)
[2019-11-21 13:29] LABS: Hematocrit 30.2 % (36.0-46.0); Hemoglobin 10.1 g/dL (12.2-16.2); Mean Corpuscular Hemoglobin 22.9 pg (28.0-32.0); Mean Corpuscular Hgb Conc. 33.5 g/dL (32.0-36.0); Mean Corpuscular Volume 68.5 fL (80.0-100.0); Platelet Count (auto) 348 10^3/uL (140-450); Red Blood Cells 4.41 10^6/uL (4.0-5.20); Red Cell Distribution Width 19.6 % (11.8-14.3); White Blood Cell 27.2 10^3/uL (4.4-10.8)
[2019-11-21 13:36] LABS: Basophils % (manual) 0 (0.0-2.0); Blast Cells 0; Eosinophils % (manual) 0 (0-7); Metamyelocytes % 0; Myelocytes % 0; Promyelocytes % 0; Reactive Lymphocytes 0
[2019-11-21 13:43] LABS: Albumin 1.6 g/dL (3.4-5.0); Anion Gap 9 (5-15); Blood Urea Nitrogen 60 mg/dL (7-18); Calcium 7.3 mg/dL (8.5-10.1); Carbon Dioxide 15 mmol/L (21-32); Chloride 120 mmol/L (98-107); Glucose 83 mg/dL (74-106); Sodium 144 mmol/L (136-145)
[2019-11-21 13:47] LABS: Alanine Aminotransferase < 6 U/L (13-56); Alkaline Phosphatase 92 U/L (45-117); Aspartate Aminotransferase 4 U/L (15-37); BUN/Creatinine Ratio 14.7; Bilirubin, Total 0.4 mg/dL (0.2-1.0); GFR African American 15 mL/min; GFR Non-African American 12 mL/min; Total Protein 5.4 g/dL (6.4-8.2)
[2019-11-21 13:52] LABS: Potassium 1.9 mmol/L (3.5-5.1)
[2019-11-21 13:54] LABS: Band Neutrophils % (manual) 7; Lymphocytes % (manual) 2 (10.0-50.0); Monocytes % (manual) 1 (0-12)
[2019-11-21] MEDS ORDERED: POTASSIUM EFFERVESENT TAB 25 MEQ PO ONE (15:00)
[2019-11-21] MEDS ORDERED: SOD CHL 0.9%/ KCL 40MEQ 1,000 ML IV ONE (15:00)
[2019-11-21 15:24] LABS: Albumin 1.7 g/dL (3.4-5.0); Calcium 7.3 mg/dL (8.5-10.1)
[2019-11-21 15:28] LABS: BUN/Creatinine Ratio 14.7; Bilirubin, Total 0.4 mg/dL (0.2-1.0); Total Protein 5.6 g/dL (6.4-8.2)
[2019-11-21] MEDS ORDERED: MAGNESIUM SULFATE 1GM/100ML 100 ML IV ONE (15:30)
[2019-11-21] MEDS ORDERED: PIPERACILLIN-TAZOB 2.25GM 50 ML IV ONE (15:30)
[2019-11-21 15:41] LABS: Potassium 1.9 mmol/L (3.5-5.1)
[2019-11-21] MEDS ORDERED: DEXTROSE 10% 1,000 ML IV SCH ×2 (15:45→16:00)
[2019-11-21] MEDS ORDERED: SODIUM BICARBONATE 50ML VIAL 150 ML in D5W 5% 1,000 ML IV SCH (15:45)
[2019-11-21] MEDS ORDERED: DexAMETHasone SOD PHOS 4 MG/1ML SDV INJ IV ONE (16:00)
[2019-11-21] MEDS ORDERED: PANTOPRAZOLE 40 MG/10 ML VIAL INJ IV ONE (16:00)
[2019-11-21] MEDS: DEXTROSE (50%) 50ML SYRG IV PRN (16:50)
[2019-11-21] MEDS ORDERED: SODIUM BICARBONATE 650 MG TAB PO ONE (20:15)
[2019-11-21] MEDS: D5W/SOD CHL 0.45%/KCL 40MEQ 1,000 ML IV SCH (21:18)
[2019-11-21] MEDS: SODIUM BICARBONATE 650 MG TAB PO SCH (22:00)
[2019-11-21] MEDS: PIPERACILLIN-TAZOB 2.25GM 50 ML IV SCH (22:50)
[2019-11-21] MEDS: DexAMETHasone SOD PHOS 4 MG/1ML SDV INJ IV SCH (22:50)
[2019-11-22] MEDS: ACCU-CHEK COMFORT CURVE STRIP VI SCH ×6 (00:06→22:04)
[2019-11-22] MEDS: D5W/SOD CHL 0.45%/KCL 40MEQ 1,000 ML IV SCH ×3 (00:50→16:02)
[2019-11-22] MEDS: InsuLIN REG 1unit/0.01ml Soln (100units/ml) SC SCH ×6 (04:00→20:00)
[2019-11-22] MEDS: DEXTROSE 10% 1,000 ML IV SCH (05:30)
[2019-11-22] MEDS: SODIUM BICARBONATE 650 MG TAB PO SCH ×4 (06:00→22:00)
[2019-11-22] MEDS: PIPERACILLIN-TAZOB 2.25GM 50 ML IV SCH ×3 (06:00→22:49)
[2019-11-22 07:21] LABS: Basophils # (auto) 0.2 10 ^3/uL (0-0.2); Eosinophils # (auto) 0 10 ^3/uL (0-0.8); Lymphocytes # (auto) 0.4 10 ^3/uL (0.4-5.4); Lymphocytes % (auto) 1.6 % (10.0-50.0); Monocytes # (auto) 0.2 10 ^3/uL (0-1.3)
[2019-11-22 07:23] LABS: Basophils % (auto) 0.8 % (0.0-2.0); Hemoglobin 8.9 g/dL (12.2-16.2); Mean Corpuscular Hemoglobin 23.4 pg (28.0-32.0); Mean Corpuscular Hgb Conc. 34.1 g/dL (32.0-36.0); Mean Corpuscular Volume 68.8 fL (80.0-100.0); Monocytes % (auto) 0.7 % (0.0-12.0); Neutrophils # (auto) 26.3 10 ^3/uL (1.6-8.6); Neutrophils % (auto) 96.9 % (37.0-80.0); Platelet Count (auto) 329 10^3/uL (140-450); Red Blood Cells 3.78 10^6/uL (4.0-5.20); Red Cell Distribution Width 19.7 % (11.8-14.3); White Blood Cell 27.1 10^3/uL (4.4-10.8)
[2019-11-22 07:40] LABS: Albumin 1.5 g/dL (3.4-5.0); Calcium 6.8 mg/dL (8.5-10.1); Magnesium 1.7 mg/dL (1.6-2.6)
[2019-11-22 07:42] LABS: Lactic Acid w/Reflex 2.5 mmol/L (0.4-2.0)
[2019-11-22 07:48] LABS: BUN/Creatinine Ratio 15.4; Bilirubin, Total 0.3 mg/dL (0.2-1.0); CRP High Sensitivity 6.07 mg/dL (< 0.3); Total Protein 5.1 g/dL (6.4-8.2)
[2019-11-22] MEDS: DexAMETHasone SOD PHOS 4 MG/1ML SDV INJ IV SCH ×2 (07:48→22:04)
[2019-11-22] MEDS: CHOLECALCIFEROL (VITD3) 2,000 UNIT CAP PO SCH (07:48)
[2019-11-22] MEDS: ZINC SULFATE 220mg CAP or TAB PO SCH (07:48)
[2019-11-22] MEDS: ASCORBIC ACID 1,000 MG TAB PO SCH (07:48)
[2019-11-22] MEDS: PANTOPRAZOLE 40 MG/10 ML VIAL INJ IV SCH (07:48)
[2019-11-22 07:54] LABS: Potassium 2.4 mmol/L (3.5-5.1)
[2019-11-22] MEDS ORDERED: POTASSIUM CHL 20MEQ/100ML 300 ML IV ONE (08:10)
[2019-11-22 08:20] LABS: Urine Bacteria FEW /hpf (None Seen); Urine Blood 1+ /uL (Negative); Urine Budding Yeast MANY /hpf (None Seen); Urine Hyaline Cast FEW /lpf (0 - 2); Urine Mucus FEW (None Seen); Urine Specific Gravity 1.011 (1.001-1.035); Urine WBC 52 /hpf (0 - 5)
[2019-11-22] MEDS: POTASSIUM CHL 20MEQ/100ML 100 ML IV SCH ×5 (08:27→17:04)
[2019-11-22] MEDS ORDERED: POTASSIUM EFFERVESENT TAB 25 MEQ PO ONE (09:15)
[2019-11-22] MEDS ORDERED: POTASSIUM CHL 20MEQ/100ML 100 ML IV SCH (09:15)
[2019-11-22] MEDS ORDERED: SODIUM BICARBONATE 8.4 % INJ 50ML VIAL IV ONE (09:15)
[2019-11-22] MEDS ORDERED: DOXYCYCLINE 100 MG TAB/CAP PO SCH (10:00)
[2019-11-22] MEDS ORDERED: hydrOXYchloroQUINE SULFATE 200 MG TAB PO SCH ×2 (10:00)
[2019-11-22] MEDS ORDERED: ENOXAPARIN SOD 100 MG/1 ML SYRINGE SC SCH (10:00)
[2019-11-22] MEDS ORDERED: ENOXAPARIN SOD 30 MG/0.3 ML SYRINGE SC SCH (10:00)
[2019-11-22] MEDS ORDERED: SODIUM BICARBONATE 8.4% INJ 50ML SYRINGE ONE (10:31)
[2019-11-22] MEDS ORDERED: MAGNESIUM SULFATE 1GM/100ML 100 ML IV ONE (13:45)
[2019-11-22] MEDS: ALBUTEROL SULF HFA 90MCG INH 200DOSE IN SCH ×2 (14:00→22:36)
[2019-11-22 15:41] VITALS: BP 134/78
[2019-11-22 16:00] VITALS: BP 165/93
[2019-11-22 16:15] VITALS: BP 154/82
[2019-11-22 17:30] VITALS: BP 155/84
[2019-11-22] MEDS ORDERED: methylPREDNISolone SOD SUCC 40 MG/ML VL IV SCH (20:15)
[2019-11-22] MEDS: TOCILIZUMAB 400 MG in SODIUM CHL 0.9% 80 ML IV SCH (21:10)
[2019-11-22] MEDS: BUDESONIDE (INHALATION) 180 MCG IH IN SCH (22:00)
[2019-11-22] MEDS: diphenhdrAMINE HCL 50 MG/1 ML VL IV SCH (22:04)
[2019-11-22] MEDS: ACETAMINOPHEN 650 mg PER 20 mL UD PO SCH (22:05)
[2019-11-23] MEDS: ACCU-CHEK COMFORT CURVE STRIP VI SCH ×6 (00:22→20:00)
[2019-11-23] MEDS: InsuLIN REG 1unit/0.01ml Soln (100units/ml) SC SCH ×6 (05:05→20:00)
[2019-11-23] MEDS: SODIUM BICARBONATE 650 MG TAB PO SCH ×4 (06:00→22:10)
[2019-11-23] MEDS: ALBUTEROL SULF HFA 90MCG INH 200DOSE IN SCH ×3 (06:16→22:20)
[2019-11-23] MEDS: PIPERACILLIN-TAZOB 2.25GM 50 ML IV SCH ×3 (06:47→22:00)
[2019-11-23 07:14] LABS: Hematocrit 22.6 % (36.0-46.0); Hemoglobin 7.6 g/dL (12.2-16.2); Mean Corpuscular Hemoglobin 22.9 pg (28.0-32.0); Mean Corpuscular Volume 67.8 fL (80.0-100.0); Red Blood Cells 3.33 10^6/uL (4.0-5.20)
[2019-11-23 07:17] LABS: Mean Corpuscular Hgb Conc. 33.7 g/dL (32.0-36.0); Platelet Count (auto) 311 10^3/uL (140-450); Red Cell Distribution Width 19.4 % (11.8-14.3); White Blood Cell 28.9 10^3/uL (4.4-10.8)
[2019-11-23 07:28] LABS: Albumin 1.6 g/dL (3.4-5.0); Calcium 6.6 mg/dL (8.5-10.1); Magnesium 1.8 mg/dL (1.6-2.6)
[2019-11-23 07:31] LABS: BUN/Creatinine Ratio 14.8; Bilirubin, Total 0.3 mg/dL (0.2-1.0)
[2019-11-23] MEDS: DexAMETHasone SOD PHOS 4 MG/1ML SDV INJ IV SCH (08:38)
[2019-11-23] MEDS: TOCILIZUMAB 400 MG in SODIUM CHL 0.9% 80 ML IV SCH (08:38)
[2019-11-23] MEDS: diphenhdrAMINE HCL 50 MG/1 ML VL IV SCH (08:38)
[2019-11-23] MEDS: D5W/SOD CHL 0.45%/KCL 40MEQ 1,000 ML IV SCH (08:38)
[2019-11-23] MEDS: ACETAMINOPHEN 650 mg PER 20 mL UD PO SCH (08:38)
[2019-11-23 09:48] LABS: Basophils % (manual) 0 (0.0-2.0); Blast Cells 0; Eosinophils % (manual) 0 (0-7); Metamyelocytes % 0; Myelocytes % 0; Promyelocytes % 0; Reactive Lymphocytes 0
[2019-11-23 09:57] LABS: Band Neutrophils % (manual) 3; Lymphocytes % (manual) 2 (10.0-50.0); Monocytes % (manual) 1 (0-12)
[2019-11-23] MEDS ORDERED: ENOXAPARIN SOD 60 MG/0.6 ML SYRINGE SC SCH (10:00)
[2019-11-23] MEDS: BUDESONIDE (INHALATION) 180 MCG IH IN SCH ×2 (10:00→22:00)
[2019-11-23] MEDS ORDERED: hydrOXYchloroQUINE SULFATE 200 MG TAB PO SCH (10:53)
[2019-11-23] MEDS ORDERED: DOXYCYCLINE 100MG/250ML 250 ML IV SCH (11:00)
[2019-11-23] MEDS: PANTOPRAZOLE 40 MG/10 ML VIAL INJ IV SCH (12:00)
[2019-11-23] MEDS ORDERED: MAGNESIUM SULFATE 1GM/100ML 100 ML IV ONE (12:00)
[2019-11-23] MEDS: CHOLECALCIFEROL (VITD3) 2,000 UNIT CAP PO SCH (12:00)
[2019-11-23] MEDS: ZINC SULFATE 220mg CAP or TAB PO SCH (12:00)
[2019-11-23] MEDS: ASCORBIC ACID 1,000 MG TAB PO SCH (12:00)
[2019-11-23] MEDS ORDERED: hydrALAZINE HCL 20 MG/ML VL IV PRN (12:15)
[2019-11-23] MEDS: POTASSIUM CHL 20MEQ/100ML 100 ML IV SCH ×2 (17:30→21:15)
[2019-11-24] MEDS: InsuLIN REG 1unit/0.01ml Soln (100units/ml) SC SCH ×6 (04:00→20:00)
[2019-11-24] MEDS: ACCU-CHEK COMFORT CURVE STRIP VI SCH ×6 (04:00→20:00)
[2019-11-24] MEDS: D5W/SOD CHL 0.45%/KCL 40MEQ 1,000 ML IV SCH ×3 (05:00→22:42)
[2019-11-24] MEDS: PIPERACILLIN-TAZOB 2.25GM 50 ML IV SCH ×3 (06:00→22:41)
[2019-11-24] MEDS: SODIUM BICARBONATE 650 MG TAB PO SCH ×4 (06:00→22:42)
[2019-11-24] MEDS: ALBUTEROL SULF HFA 90MCG INH 200DOSE IN SCH ×3 (08:07→22:57)
[2019-11-24] MEDS ORDERED: hydrOXYchloroQUINE SULFATE 200 MG TAB PO SCH (10:00)
[2019-11-24] MEDS ORDERED: FLUCONAZOLE 200MG/100ML 100 ML IV SCH (10:00)
[2019-11-24] MEDS: BUDESONIDE (INHALATION) 180 MCG IH IN SCH ×2 (10:14→22:56)
[2019-11-24] MEDS: DexAMETHasone SOD PHOS 10MG/1ML VIAL INJ IV SCH (11:00)
[2019-11-24] MEDS: PANTOPRAZOLE 40 MG/10 ML VIAL INJ IV SCH ×3 (11:02→22:41)
[2019-11-24] MEDS: ZINC SULFATE 220mg CAP or TAB PO SCH (11:05)
[2019-11-24] MEDS: ASCORBIC ACID 1,000 MG TAB PO SCH (11:05)
[2019-11-24] MEDS: CHOLECALCIFEROL (VITD3) 2,000 UNIT CAP PO SCH (11:05)
[2019-11-24] MEDS ORDERED: FLUCONAZOLE 200MG/100ML 100 ML IV ONE (12:30)
[2019-11-24] MEDS: LINEZOLID 600MG/300ML 300 ML IV SCH (13:20)
[2019-11-24] MEDS: metroNIDAZOLE 500MG/100ML 100 ML IV SCH ×2 (13:40→21:00)
[2019-11-24 17:45] LABS: Hematocrit 25.6 % (36.0-46.0); Hemoglobin 8.6 g/dL (12.2-16.2); Mean Corpuscular Hemoglobin 23.1 pg (28.0-32.0); Mean Corpuscular Hgb Conc. 33.5 g/dL (32.0-36.0); Mean Corpuscular Volume 68.8 fL (80.0-100.0); Platelet Count (auto) 310 10^3/uL (140-450); Red Blood Cells 3.71 10^6/uL (4.0-5.20); Red Cell Distribution Width 19.6 % (11.8-14.3); White Blood Cell 20.4 10^3/uL (4.4-10.8)
[2019-11-24 17:47] LABS: Basophils % (manual) 0 (0.0-2.0); Blast Cells 0; Eosinophils % (manual) 0 (0-7); Metamyelocytes % 0; Monocytes % (manual) 0 (0-12); Myelocytes % 0; Promyelocytes % 0; Reactive Lymphocytes 0
[2019-11-24 17:49] LABS: Band Neutrophils % (manual) 0
[2019-11-24 17:54] LABS: INR 1.11 (0.9-1.15)
[2019-11-24 17:56] LABS: Albumin 1.7 g/dL (3.4-5.0); Calcium 6.6 mg/dL (8.5-10.1); Magnesium 1.6 mg/dL (1.6-2.6); Potassium 3.4 mmol/L (3.5-5.1)
[2019-11-24 17:59] LABS: Lymphocytes % (manual) 3 (10.0-50.0)
[2019-11-24 18:00] LABS: BUN/Creatinine Ratio 17.4; Bilirubin, Total 0.3 mg/dL (0.2-1.0); Total Protein 5.3 g/dL (6.4-8.2)
[2019-11-24 18:46] VITALS: BP 129/91
[2019-11-25 00:58] LABS: Hematocrit 23.5 % (36.0-46.0); Hemoglobin 7.9 g/dL (12.2-16.2)
[2019-11-25] MEDS: ACCU-CHEK COMFORT CURVE STRIP VI SCH ×6 (04:00→21:53)
[2019-11-25] MEDS: InsuLIN REG 1unit/0.01ml Soln (100units/ml) SC SCH ×6 (04:00→20:00)
[2019-11-25] MEDS: metroNIDAZOLE 500MG/100ML 100 ML IV SCH ×3 (05:00→21:53)
[2019-11-25] MEDS: SODIUM BICARBONATE 650 MG TAB PO SCH ×4 (06:00→21:54)
[2019-11-25] MEDS: ALBUTEROL SULF HFA 90MCG INH 200DOSE IN SCH ×3 (06:10→22:28)
[2019-11-25] MEDS: PIPERACILLIN-TAZOB 2.25GM 50 ML IV SCH ×3 (06:29→18:05)
[2019-11-25 06:34] LABS: Basophils # (auto) 0 10 ^3/uL (0-0.2); Basophils % (auto) 0.1 % (0.0-2.0); Eosinophils # (auto) 0 10 ^3/uL (0-0.8)
[2019-11-25 06:37] LABS: Hematocrit 23.7 % (36.0-46.0); Lymphocytes # (auto) 0.4 10 ^3/uL (0.4-5.4); Lymphocytes % (auto) 2.2 % (10.0-50.0); Mean Corpuscular Hemoglobin 22.9 pg (28.0-32.0); Mean Corpuscular Hgb Conc. 33.9 g/dL (32.0-36.0); Mean Corpuscular Volume 67.7 fL (80.0-100.0); Monocytes # (auto) 0.4 10 ^3/uL (0-1.3); Monocytes % (auto) 1.9 % (0.0-12.0); Neutrophils # (auto) 17.6 10 ^3/uL (1.6-8.6); Neutrophils % (auto) 95.8 % (37.0-80.0); Nucleated Red Blood Cells % 0.1 %; Platelet Count (auto) 304 10^3/uL (140-450); Red Cell Distribution Width 19.4 % (11.8-14.3); White Blood Cell 18.4 10^3/uL (4.4-10.8)
[2019-11-25 06:46] LABS: Albumin 1.6 g/dL (3.4-5.0); Calcium 6.3 mg/dL (8.5-10.1)
[2019-11-25 06:50] LABS: Bilirubin, Total 0.4 mg/dL (0.2-1.0); Total Protein 4.8 g/dL (6.4-8.2)
[2019-11-25 07:01] LABS: Potassium 2.8 mmol/L (3.5-5.1)
[2019-11-25] MEDS ORDERED: POTASSIUM EFFERVESENT TAB 25 MEQ PO ONE (07:15)
[2019-11-25 08:00] VITALS: BP 120/77
[2019-11-25] MEDS: D5W/SOD CHL 0.45%/KCL 40MEQ 1,000 ML IV SCH ×2 (08:15→18:05)
[2019-11-25] MEDS: POTASSIUM CHL 20MEQ/100ML 100 ML IV SCH ×3 (09:16→12:59)
[2019-11-25] MEDS: FLUCONAZOLE 200MG/100ML 100 ML IV SCH (10:00)
[2019-11-25] MEDS: DexAMETHasone SOD PHOS 10MG/1ML VIAL INJ IV SCH (10:00)
[2019-11-25] MEDS: PANTOPRAZOLE 40 MG/10 ML VIAL INJ IV SCH ×3 (10:00→21:54)
[2019-11-25] MEDS: BUDESONIDE (INHALATION) 180 MCG IH IN SCH ×2 (10:00→22:28)
[2019-11-25] MEDS: CHOLECALCIFEROL (VITD3) 2,000 UNIT CAP PO SCH (10:01)
[2019-11-25] MEDS: ZINC SULFATE 220mg CAP or TAB PO SCH (10:01)
[2019-11-25] MEDS: ASCORBIC ACID 1,000 MG TAB PO SCH (10:01)
[2019-11-25] MEDS: LINEZOLID 600MG/300ML 300 ML IV SCH ×2 (11:25)
[2019-11-25 13:00] VITALS: BP 124/85
[2019-11-25 16:24] VITALS: BP 124/85
[2019-11-25 18:01] VITALS: BP 110/77
[2019-11-25 22:00] VITALS: BP 112/79
[2019-11-26] MEDS: LINEZOLID 600MG/300ML 300 ML IV SCH ×3 (00:06→23:09)
[2019-11-26] MEDS: ACCU-CHEK COMFORT CURVE STRIP VI SCH ×6 (00:07→20:10)
[2019-11-26] MEDS: PIPERACILLIN-TAZOB 2.25GM 50 ML IV SCH ×4 (01:42→16:40)
[2019-11-26] MEDS: InsuLIN REG 1unit/0.01ml Soln (100units/ml) SC SCH ×6 (03:51→20:11)
[2019-11-26] MEDS: metroNIDAZOLE 500MG/100ML 100 ML IV SCH (04:55)
[2019-11-26] MEDS: D5W/SOD CHL 0.45%/KCL 40MEQ 1,000 ML IV SCH (04:55)
[2019-11-26 05:00] VITALS: BP 120/76
[2019-11-26 06:47] LABS: Basophils # (auto) 0 10 ^3/uL (0-0.2); Basophils % (auto) 0.1 % (0.0-2.0); Eosinophils # (auto) 0 10 ^3/uL (0-0.8)
[2019-11-26 06:50] LABS: Eosinophils % (auto) 0.1 % (0.0-7.0); Hematocrit 22.3 % (36.0-46.0); Hemoglobin 7.7 g/dL (12.2-16.2); Lymphocytes # (auto) 0.9 10 ^3/uL (0.4-5.4); Lymphocytes % (auto) 4.9 % (10.0-50.0); Mean Corpuscular Hemoglobin 23.2 pg (28.0-32.0); Mean Corpuscular Hgb Conc. 34.3 g/dL (32.0-36.0); Mean Corpuscular Volume 67.6 fL (80.0-100.0); Monocytes # (auto) 0.4 10 ^3/uL (0-1.3); Monocytes % (auto) 2.1 % (0.0-12.0); Neutrophils # (auto) 17.9 10 ^3/uL (1.6-8.6); Neutrophils % (auto) 92.8 % (37.0-80.0); Platelet Count (auto) 270 10^3/uL (140-450); Red Cell Distribution Width 19.7 % (11.8-14.3); White Blood Cell 19.3 10^3/uL (4.4-10.8)
[2019-11-26] MEDS: ALBUTEROL SULF HFA 90MCG INH 200DOSE IN SCH ×3 (06:52→22:03)
[2019-11-26] MEDS: SODIUM BICARBONATE 650 MG TAB PO SCH ×4 (06:56→23:09)
[2019-11-26 07:11] LABS: Albumin 1.7 g/dL (3.4-5.0); Calcium 6.2 mg/dL (8.5-10.1); Potassium 3.2 mmol/L (3.5-5.1)
[2019-11-26 07:14] LABS: BUN/Creatinine Ratio 18.4; Bilirubin, Total 0.4 mg/dL (0.2-1.0); Total Protein 4.5 g/dL (6.4-8.2)
[2019-11-26 09:23] VITALS: BP 115/75
[2019-11-26] MEDS: BUDESONIDE (INHALATION) 180 MCG IH IN SCH ×2 (09:39→22:03)
[2019-11-26] MEDS: PANTOPRAZOLE 40 MG/10 ML VIAL INJ IV SCH ×3 (10:00→23:09)
[2019-11-26] MEDS: POTASSIUM EFFERVESENT TAB 25 MEQ PO SCH (10:00)
[2019-11-26] MEDS: FLUCONAZOLE 200MG/100ML 100 ML IV SCH (11:44)
[2019-11-26] MEDS: DexAMETHasone SOD PHOS 10MG/1ML VIAL INJ IV SCH (11:44)
[2019-11-26] MEDS: ZINC SULFATE 220mg CAP or TAB PO SCH (11:45)
[2019-11-26] MEDS: ASCORBIC ACID 1,000 MG TAB PO SCH (11:45)
[2019-11-26] MEDS: CHOLECALCIFEROL (VITD3) 1,000UNIT=25mCg TAB PO SCH (11:46)
[2019-11-26 12:50] VITALS: BP 129/83
[2019-11-26] MEDS ORDERED: FLORASTOR (S. BOULARDII) 250 MG CAP PO ONE (13:28)
[2019-11-26] MEDS ORDERED: POTASSIUM CHL 20 Meq TABLET PO ONE (13:30)
[2019-11-26 16:42] VITALS: BP 116/73
[2019-11-26 22:00] VITALS: BP 135/87
[2019-11-27] MEDS: ACCU-CHEK COMFORT CURVE STRIP VI SCH ×6 (00:17→20:27)
[2019-11-27] MEDS: InsuLIN REG 1unit/0.01ml Soln (100units/ml) SC SCH ×6 (00:19→20:00)
[2019-11-27] MEDS: PIPERACILLIN-TAZOB 2.25GM 50 ML IV SCH ×4 (01:20→17:56)
[2019-11-27 05:00] VITALS: BP 123/81
[2019-11-27] MEDS: BUDESONIDE (INHALATION) 180 MCG IH IN SCH ×2 (06:05→21:15)
[2019-11-27] MEDS: ALBUTEROL SULF HFA 90MCG INH 200DOSE IN SCH ×3 (06:05→21:15)
[2019-11-27] MEDS: SODIUM BICARBONATE 650 MG TAB PO SCH ×4 (06:37→22:15)
[2019-11-27 09:00] VITALS: BP 128/85
[2019-11-27] MEDS: PANTOPRAZOLE 40 MG/10 ML VIAL INJ IV SCH ×2 (09:54→22:15)
[2019-11-27] MEDS: DexAMETHasone SOD PHOS 10MG/1ML VIAL INJ IV SCH (09:54)
[2019-11-27] MEDS: ZINC SULFATE 220mg CAP or TAB PO SCH (09:55)
[2019-11-27] MEDS: ASCORBIC ACID 1,000 MG TAB PO SCH (09:55)
[2019-11-27] MEDS: CHOLECALCIFEROL (VITD3) 1,000UNIT=25mCg TAB PO SCH (09:55)
[2019-11-27] MEDS: POTASSIUM EFFERVESENT TAB 25 MEQ PO SCH (09:55)
[2019-11-27] MEDS: FLORASTOR (S. BOULARDII) 250 MG CAP PO SCH (09:55)
[2019-11-27] MEDS: MAGNESIUM SULFATE 1GM/100ML 100 ML IV SCH ×2 (09:56→12:13)
[2019-11-27] MEDS: FLUCONAZOLE 200MG/100ML 100 ML IV SCH (09:56)
[2019-11-27] MEDS: LINEZOLID 600MG/300ML 300 ML IV SCH ×2 (12:12→23:00)
[2019-11-27 12:15] LABS: Red Cell Distribution Width 19.8 % (11.8-14.3)
[2019-11-27 12:17] LABS: Hematocrit 23.7 % (36.0-46.0); Hemoglobin 7.9 g/dL (12.2-16.2); Mean Corpuscular Hemoglobin 22.9 pg (28.0-32.0); Mean Corpuscular Hgb Conc. 33.2 g/dL (32.0-36.0); Mean Corpuscular Volume 68.8 fL (80.0-100.0); Platelet Count (auto) 305 10^3/uL (140-450); Red Blood Cells 3.44 10^6/uL (4.0-5.20); White Blood Cell 18.2 10^3/uL (4.4-10.8)
[2019-11-27 12:20] LABS: Basophils % (manual) 0 (0.0-2.0); Blast Cells 0; Eosinophils % (manual) 0 (0-7); Metamyelocytes % 0; Myelocytes % 0; Promyelocytes % 0; Reactive Lymphocytes 0
[2019-11-27 12:35] LABS: BUN/Creatinine Ratio 14.6; CRP High Sensitivity 0.23 mg/dL (< 0.3); Calcium 6.5 mg/dL (8.5-10.1); Magnesium 1.3 mg/dL (1.6-2.6); Potassium 3.4 mmol/L (3.5-5.1)
[2019-11-27 12:44] LABS: Band Neutrophils % (manual) 1; Lymphocytes % (manual) 5 (10.0-50.0); Monocytes % (manual) 2 (0-12)
[2019-11-27 12:48] VITALS: BP 132/88
[2019-11-27 13:00] VITALS: BP 132/88
[2019-11-27 18:00] VITALS: BP 139/90
[2019-11-27 21:56] VITALS: BP 130/86
[2019-11-27] MEDS: MAGNESIUM OXIDE 400 MG TAB PO SCH (22:15)
[2019-11-28] MEDS: InsuLIN REG 1unit/0.01ml Soln (100units/ml) SC SCH ×5 (04:00→16:00)
[2019-11-28] MEDS: ACCU-CHEK COMFORT CURVE STRIP VI SCH ×8 (04:36→23:51)
[2019-11-28 05:00] VITALS: BP 122/80
[2019-11-28] MEDS: SODIUM BICARBONATE 650 MG TAB PO SCH ×4 (06:00→21:53)
[2019-11-28] MEDS: ALBUTEROL SULF HFA 90MCG INH 200DOSE IN SCH ×3 (06:00→22:10)
[2019-11-28] MEDS: PIPERACILLIN-TAZOB 2.25GM 50 ML IV SCH ×5 (06:00→23:51)
[2019-11-28 09:00] VITALS: BP 134/75
[2019-11-28 09:10] LABS: Basophils # (auto) 0.1 10 ^3/uL (0-0.2); Eosinophils # (auto) 0 10 ^3/uL (0-0.8); Hematocrit 35.8 % (36.0-46.0); Hemoglobin 11.8 g/dL (12.2-16.2); Lymphocytes # (auto) 0.6 10 ^3/uL (0.4-5.4); Lymphocytes % (auto) 7.5 % (10.0-50.0); Monocytes # (auto) 0.6 10 ^3/uL (0-1.3); Monocytes % (auto) 6.6 % (0.0-12.0); Neutrophils # (auto) 7.2 10 ^3/uL (1.6-8.6); Neutrophils % (auto) 84.9 % (37.0-80.0); Nucleated Red Blood Cells % 0.1 %; Platelet Count (auto) 380 10^3/uL (140-450); Red Cell Distribution Width 13.5 % (11.8-14.3); White Blood Cell 8.4 10^3/uL (4.4-10.8)
[2019-11-28] MEDS: DexAMETHasone SOD PHOS 10MG/1ML VIAL INJ IV SCH (09:19)
[2019-11-28] MEDS: CHOLECALCIFEROL (VITD3) 1,000UNIT=25mCg TAB PO SCH (09:19)
[2019-11-28] MEDS: PANTOPRAZOLE 40 MG/10 ML VIAL INJ IV SCH ×2 (09:19→21:53)
[2019-11-28] MEDS: FLUCONAZOLE 200MG/100ML 100 ML IV SCH (09:19)
[2019-11-28] MEDS: FLORASTOR (S. BOULARDII) 250 MG CAP PO SCH (09:20)
[2019-11-28] MEDS: POTASSIUM EFFERVESENT TAB 25 MEQ PO SCH (09:20)
[2019-11-28] MEDS: MAGNESIUM OXIDE 400 MG TAB PO SCH ×2 (09:20→21:53)
[2019-11-28] MEDS: ZINC SULFATE 220mg CAP or TAB PO SCH (09:21)
[2019-11-28] MEDS: ASCORBIC ACID 1,000 MG TAB PO SCH (09:21)
[2019-11-28 09:29] LABS: Potassium 4.5 mmol/L (3.5-5.1)
[2019-11-28 09:35] LABS: BUN/Creatinine Ratio 25.3; Magnesium 2.5 mg/dL (1.6-2.6)
[2019-11-28] MEDS: BUDESONIDE (INHALATION) 180 MCG IH IN SCH ×2 (10:00→22:10)
[2019-11-28] MEDS ORDERED: DEXTROSE 10% 1,000 ML IV SCH (10:15)
[2019-11-28] MEDS: DEXTROSE (50%) 50ML SYRG IV PRN (10:20)
[2019-11-28] MEDS: LINEZOLID 600MG/300ML 300 ML IV SCH ×2 (11:01→22:59)
[2019-11-28 12:51] VITALS: BP 126/80
[2019-11-28] MEDS ORDERED: D5W 5% 1,000 ML IV SCH (15:15)
[2019-11-28 17:05] VITALS: BP 122/85
[2019-11-28] MEDS: Ensure HIGH Protein Chocolate 8oz Bottle PO SCH (17:59)
[2019-11-28] MEDS ORDERED: ACCU-CHEK COMFORT CURVE STRIP VI SCH (18:00)
[2019-11-28 22:00] VITALS: BP 134/84
[2019-11-29] MEDS: ACCU-CHEK COMFORT CURVE STRIP VI SCH ×6 (03:57→23:41)
[2019-11-29 05:00] VITALS: BP 138/68
[2019-11-29] MEDS: SODIUM BICARBONATE 650 MG TAB PO SCH ×3 (05:54→21:51)
[2019-11-29] MEDS: PIPERACILLIN-TAZOB 2.25GM 50 ML IV SCH (05:54)
[2019-11-29] MEDS: BUDESONIDE (INHALATION) 180 MCG IH IN SCH ×2 (06:38→07:46)
[2019-11-29] MEDS: ALBUTEROL SULF HFA 90MCG INH 200DOSE IN SCH ×2 (07:46→14:40)
[2019-11-29] MEDS: Ensure HIGH Protein Chocolate 8oz Bottle PO SCH ×3 (08:12→18:00)
[2019-11-29] MEDS ORDERED: DEXTROSE 10% 1,000 ML IV SCH ×2 (08:15→12:00)
[2019-11-29 09:00] VITALS: BP 123/72
[2019-11-29] MEDS: ZINC SULFATE 220mg CAP or TAB PO SCH (10:14)
[2019-11-29] MEDS: DexAMETHasone SOD PHOS 10MG/1ML VIAL INJ IV SCH (10:14)
[2019-11-29] MEDS: PANTOPRAZOLE 40 MG/10 ML VIAL INJ IV SCH (10:14)
[2019-11-29] MEDS: ASCORBIC ACID 1,000 MG TAB PO SCH (10:15)
[2019-11-29] MEDS: MAGNESIUM OXIDE 400 MG TAB PO SCH ×2 (10:15→21:51)
[2019-11-29] MEDS: CHOLECALCIFEROL (VITD3) 1,000UNIT=25mCg TAB PO SCH (10:15)
[2019-11-29] MEDS: POTASSIUM CHL 20 Meq TABLET PO SCH (10:15)
[2019-11-29] MEDS: FLORASTOR (S. BOULARDII) 250 MG CAP PO SCH (10:15)
[2019-11-29 10:35] VITALS: BP 123/72
[2019-11-29] MEDS ORDERED: DOXYCYCLINE 100 MG TAB/CAP PO ONE (10:45)
[2019-11-29 11:09] LABS: Basophils % (auto) 0.7 % (0.0-2.0); Nucleated Red Blood Cells % 0.1 %
[2019-11-29 11:11] LABS: Basophils # (auto) 0.1 10 ^3/uL (0-0.2); Eosinophils # (auto) 0.1 10 ^3/uL (0-0.8); Eosinophils % (auto) 0.6 % (0.0-7.0); Hematocrit 22.8 % (36.0-46.0); Hemoglobin 7.6 g/dL (12.2-16.2); Lymphocytes # (auto) 2.2 10 ^3/uL (0.4-5.4); Lymphocytes % (auto) 16.8 % (10.0-50.0); Mean Corpuscular Hemoglobin 23.1 pg (28.0-32.0); Mean Corpuscular Hgb Conc. 33.3 g/dL (32.0-36.0); Mean Corpuscular Volume 69.2 fL (80.0-100.0); Monocytes # (auto) 0.4 10 ^3/uL (0-1.3); Monocytes % (auto) 3.2 % (0.0-12.0); Neutrophils # (auto) 10.2 10 ^3/uL (1.6-8.6); Neutrophils % (auto) 78.7 % (37.0-80.0); Platelet Count (auto) 274 10^3/uL (140-450); Red Cell Distribution Width 19.1 % (11.8-14.3); White Blood Cell 12.9 10^3/uL (4.4-10.8)
[2019-11-29] MEDS: FLUCONAZOLE 100 MG TAB PO SCH (11:19)
[2019-11-29 11:42] LABS: BUN/Creatinine Ratio 12.6; Calcium 6.5 mg/dL (8.5-10.1)
[2019-11-29 11:46] LABS: Potassium 2.8 mmol/L (3.5-5.1)
[2019-11-29] MEDS ORDERED: POTASSIUM CHL 20 Meq TABLET PO ONE (12:15)
[2019-11-29 12:33] VITALS: BP 118/81
[2019-11-29] MEDS: DEXTROSE 10% 1,000 ML IV SCH (13:01)
[2019-11-29] MEDS: MAGNESIUM SULFATE 1GM/100ML 100 ML IV SCH ×2 (16:13→17:02)
[2019-11-29] MEDS: LOPERAMIDE HCL 2 MG CAP PO PRN (16:14)
[2019-11-29 17:52] VITALS: BP 125/79
[2019-11-29] MEDS: DOXYCYCLINE 100 MG TAB/CAP PO SCH (21:51)
[2019-11-29 22:00] VITALS: BP 110/68
[2019-11-30] MEDS: ACCU-CHEK COMFORT CURVE STRIP VI SCH ×5 (03:37→19:37)
[2019-11-30 04:54] VITALS: BP 109/69
[2019-11-30] MEDS: ALBUTEROL SULF HFA 90MCG INH 200DOSE IN SCH ×4 (06:00→21:04)
[2019-11-30] MEDS: BUDESONIDE (INHALATION) 180 MCG IH IN SCH ×2 (06:38→21:05)
[2019-11-30] MEDS: DEXTROSE 10% 1,000 ML IV SCH (07:25)
[2019-11-30 07:56] LABS: Magnesium 1.6 mg/dL (1.6-2.6); Potassium 3.9 mmol/L (3.5-5.1)
[2019-11-30 08:23] VITALS: BP 126/74
[2019-11-30] MEDS: DEXTROSE (50%) 50ML SYRG IV PRN (08:24)
[2019-11-30] MEDS: Ensure HIGH Protein Chocolate 8oz Bottle PO SCH ×3 (08:24→18:05)
[2019-11-30] MEDS ORDERED: MAGNESIUM SULFATE 1GM/100ML 100 ML IV ONE ×2 (08:45→10:30)
[2019-11-30] MEDS: SODIUM BICARBONATE 650 MG TAB PO SCH ×2 (09:40→21:46)
[2019-11-30] MEDS: DexAMETHasone 4 MG TAB PO SCH (09:40)
[2019-11-30] MEDS: ZINC SULFATE 220mg CAP or TAB PO SCH (09:40)
[2019-11-30] MEDS: FLORASTOR (S. BOULARDII) 250 MG CAP PO SCH (09:41)
[2019-11-30] MEDS: ASCORBIC ACID 1,000 MG TAB PO SCH (09:41)
[2019-11-30] MEDS: POTASSIUM CHL 20 Meq TABLET PO SCH (09:41)
[2019-11-30] MEDS: DOXYCYCLINE 100 MG TAB/CAP PO SCH ×2 (09:41→21:46)
[2019-11-30] MEDS: PANTOPRAZOLE 40 MG TAB PO SCH (09:41)
[2019-11-30] MEDS: FLUCONAZOLE 100 MG TAB PO SCH (09:41)
[2019-11-30] MEDS: MAGNESIUM OXIDE 400 MG TAB PO SCH ×2 (09:41→21:46)
[2019-11-30] MEDS: CHOLECALCIFEROL (VITD3) 1,000UNIT=25mCg TAB PO SCH (09:42)
[2019-11-30] MEDS ORDERED: ENOXAPARIN SOD 40 MG/0.4 ML SYRINGE SC ONE (11:00)
[2019-11-30 13:00] VITALS: BP 109/73
[2019-11-30 16:48] VITALS: BP 118/76
[2019-11-30 22:07] VITALS: BP 102/69
[2019-12-01] MEDS: ACCU-CHEK COMFORT CURVE STRIP VI SCH ×6 (00:08→19:58)
[2019-12-01] MEDS: DEXTROSE 10% 1,000 ML IV SCH (03:50)
[2019-12-01 05:21] VITALS: BP 107/68
[2019-12-01 06:34] LABS: Basophils # (auto) 0 10 ^3/uL (0-0.2); Eosinophils # (auto) 0 10 ^3/uL (0-0.8); Eosinophils % (auto) 0.2 % (0.0-7.0); Hemoglobin 7.9 g/dL (12.2-16.2); Monocytes # (auto) 0.5 10 ^3/uL (0-1.3); Neutrophils # (auto) 8.1 10 ^3/uL (1.6-8.6)
[2019-12-01 06:36] LABS: Basophils % (auto) 0.2 % (0.0-2.0); Hematocrit 22.8 % (36.0-46.0); Lymphocytes # (auto) 1.3 10 ^3/uL (0.4-5.4); Lymphocytes % (auto) 13.2 % (10.0-50.0); Mean Corpuscular Hemoglobin 24.7 pg (28.0-32.0); Mean Corpuscular Hgb Conc. 34.6 g/dL (32.0-36.0); Mean Corpuscular Volume 71.2 fL (80.0-100.0); Monocytes % (auto) 4.9 % (0.0-12.0); Neutrophils % (auto) 81.5 % (37.0-80.0); Nucleated Red Blood Cells % 0.1 %; Platelet Count (auto) 218 10^3/uL (140-450); Red Blood Cells 3.21 10^6/uL (4.0-5.20); Red Cell Distribution Width 18.7 % (11.8-14.3)
[2019-12-01] MEDS: ALBUTEROL SULF HFA 90MCG INH 200DOSE IN SCH ×3 (06:38→22:01)
[2019-12-01] MEDS: BUDESONIDE (INHALATION) 180 MCG IH IN SCH ×2 (06:38→22:01)
[2019-12-01 06:54] LABS: Potassium 4.6 mmol/L (3.5-5.1)
[2019-12-01 07:02] LABS: BUN/Creatinine Ratio 22.7; Calcium 7.2 mg/dL (8.5-10.1); Magnesium 1.6 mg/dL (1.6-2.6)
[2019-12-01] MEDS: Ensure HIGH Protein Chocolate 8oz Bottle PO SCH ×3 (08:21→18:50)
[2019-12-01 08:53] VITALS: BP 104/66
[2019-12-01] MEDS: LOPERAMIDE HCL 2 MG CAP PO PRN (09:46)
[2019-12-01] MEDS: POTASSIUM CHL 20 Meq TABLET PO SCH (09:46)
[2019-12-01] MEDS: ASCORBIC ACID 1,000 MG TAB PO SCH (09:46)
[2019-12-01] MEDS: ZINC SULFATE 220mg CAP or TAB PO SCH (09:46)
[2019-12-01] MEDS: SODIUM BICARBONATE 650 MG TAB PO SCH (09:46)
[2019-12-01] MEDS: DexAMETHasone 4 MG TAB PO SCH (09:46)
[2019-12-01] MEDS: DOXYCYCLINE 100 MG TAB/CAP PO SCH ×2 (09:46→22:17)
[2019-12-01] MEDS: PANTOPRAZOLE 40 MG TAB PO SCH (09:46)
[2019-12-01] MEDS: FLORASTOR (S. BOULARDII) 250 MG CAP PO SCH (09:46)
[2019-12-01] MEDS: MAGNESIUM OXIDE 400 MG TAB PO SCH ×2 (09:47→22:17)
[2019-12-01] MEDS: FLUCONAZOLE 100 MG TAB PO SCH (09:47)
[2019-12-01] MEDS: CHOLECALCIFEROL (VITD3) 1,000UNIT=25mCg TAB PO SCH (09:48)
[2019-12-01] MEDS: ENOXAPARIN SOD 40 MG/0.4 ML SYRINGE SC SCH (09:48)
[2019-12-01 13:00] VITALS: BP 142/76
[2019-12-01 17:00] VITALS: BP 116/75
[2019-12-02] MEDS: ACCU-CHEK COMFORT CURVE STRIP VI SCH ×5 (00:15→20:49)
[2019-12-02 00:44] VITALS: BP 108/71
[2019-12-02 05:20] VITALS: BP 115/73
[2019-12-02] MEDS: BUDESONIDE (INHALATION) 180 MCG IH IN SCH ×2 (07:04→22:18)
[2019-12-02] MEDS: ALBUTEROL SULF HFA 90MCG INH 200DOSE IN SCH ×3 (07:04→22:18)
[2019-12-02] MEDS: Ensure HIGH Protein Chocolate 8oz Bottle PO SCH ×3 (07:50→17:41)
[2019-12-02 09:00] VITALS: BP 108/66
[2019-12-02] MEDS: FLUCONAZOLE 100 MG TAB PO SCH (09:43)
[2019-12-02] MEDS: FLORASTOR (S. BOULARDII) 250 MG CAP PO SCH (09:43)
[2019-12-02] MEDS: DexAMETHasone 4 MG TAB PO SCH (09:43)
[2019-12-02] MEDS: MAGNESIUM OXIDE 400 MG TAB PO SCH ×2 (09:43→22:40)
[2019-12-02] MEDS: ZINC SULFATE 220mg CAP or TAB PO SCH (09:43)
[2019-12-02] MEDS: CHOLECALCIFEROL (VITD3) 1,000UNIT=25mCg TAB PO SCH (09:44)
[2019-12-02] MEDS: PANTOPRAZOLE 40 MG TAB PO SCH (09:44)
[2019-12-02] MEDS: ASCORBIC ACID 1,000 MG TAB PO SCH (09:44)
[2019-12-02] MEDS: DOXYCYCLINE 100 MG TAB/CAP PO SCH ×2 (09:44→22:40)
[2019-12-02] MEDS: ENOXAPARIN SOD 40 MG/0.4 ML SYRINGE SC SCH (09:44)
[2019-12-02 13:00] VITALS: BP 112/79
[2019-12-02 16:58] VITALS: BP 112/67
[2019-12-02 22:00] VITALS: BP 111/77
[2019-12-03] MEDS: ACCU-CHEK COMFORT CURVE STRIP VI SCH ×5 (04:44→16:00)
[2019-12-03 05:50] VITALS: BP 128/84
[2019-12-03] MEDS: ALBUTEROL SULF HFA 90MCG INH 200DOSE IN SCH ×2 (07:20→14:28)
[2019-12-03] MEDS: BUDESONIDE (INHALATION) 180 MCG IH IN SCH (07:20)
[2019-12-03] MEDS: Ensure HIGH Protein Chocolate 8oz Bottle PO SCH ×3 (08:00→18:00)
[2019-12-03 09:00] VITALS: BP 118/72
[2019-12-03] MEDS: CHOLECALCIFEROL (VITD3) 1,000UNIT=25mCg TAB PO SCH (09:58)
[2019-12-03] MEDS: ENOXAPARIN SOD 40 MG/0.4 ML SYRINGE SC SCH (09:58)
[2019-12-03] MEDS: FLORASTOR (S. BOULARDII) 250 MG CAP PO SCH (09:59)
[2019-12-03] MEDS: DexAMETHasone 4 MG TAB PO SCH (09:59)
[2019-12-03] MEDS: ZINC SULFATE 220mg CAP or TAB PO SCH (09:59)
[2019-12-03] MEDS: MAGNESIUM OXIDE 400 MG TAB PO SCH (09:59)
[2019-12-03] MEDS: DOXYCYCLINE 100 MG TAB/CAP PO SCH (09:59)
[2019-12-03] MEDS: FLUCONAZOLE 100 MG TAB PO SCH (09:59)
[2019-12-03] MEDS: ASCORBIC ACID 1,000 MG TAB PO SCH (09:59)
[2019-12-03] MEDS: PANTOPRAZOLE 40 MG TAB PO SCH (10:00)
[2019-12-03 12:20] LABS: Hematocrit 27.3 % (36.0-46.0); Hemoglobin 8.3 g/dL (12.2-16.2); Mean Corpuscular Hemoglobin 23.4 pg (28.0-32.0); Mean Corpuscular Hgb Conc. 30.4 g/dL (32.0-36.0); Platelet Count (auto) 229 10^3/uL (140-450); Red Blood Cells 3.54 10^6/uL (4.0-5.20); Red Cell Distribution Width 19.8 % (11.8-14.3); White Blood Cell 19.6 10^3/uL (4.4-10.8)
[2019-12-03 12:25] LABS: Band Neutrophils % (manual) 0; Basophils % (manual) 0 (0.0-2.0); Blast Cells 0; Eosinophils % (manual) 0 (0-7); Metamyelocytes % 0; Myelocytes % 0; Promyelocytes % 0; Reactive Lymphocytes 0
[2019-12-03 12:55] VITALS: BP 114/72
[2019-12-03 13:15] LABS: Lymphocytes % (manual) 10 (10.0-50.0); Monocytes % (manual) 5 (0-12)
[2019-12-03] MEDS ORDERED: METH4PAK PO (15:21)
[2019-12-03] MEDS ORDERED: FLUC200T35 PO (15:21)
[2019-12-03] MEDS ORDERED: ASCO10003 PO (15:21)
[2019-12-03] MEDS ORDERED: ZINC220T6 PO (15:21)
[2019-12-03 17:00] VITALS: BP 126/82
== END 2019-12-03 19:00 | disposition home or self-care (01) | DRG 720 ==
LOC: EDBD 18:54 → EDUNIT# 18:54 → ER 18:54 → TELE 18:55 → DOU IN ICU 11-24 18:29 → TELE-E-ADS 11-25 10:40
PROVIDERS: ADMIT Nurse Practitioner; ATTEND Internal Medicine
PROC: XW033H5 Introduction of Tocilizumab into Peripheral Vein, Percutaneous Approach, New Technology Group 5 (ICD-10-PCS; principal; 2019-11-22)
PROC: 05HY33Z Insertion of Infusion Device into Upper Vein, Percutaneous Approach (ICD-10-PCS; 2019-11-22)
PROC: XW13325 Transfusion of Convalescent Plasma (Nonautologous) into Peripheral Vein, Percutaneous Approach, New Technology Group 5 (ICD-10-PCS; 2019-11-22)
DX: A41.89 Other specified sepsis (principal); U07.1 COVID-19; E87.6 Hypokalemia; K56.7 Ileus, unspecified; E87.2 Acidosis; D64.9 Anemia, unspecified; N17.0 Acute kidney failure with tubular necrosis; K21.9 Gastro-esophageal reflux disease without esophagitis; J12.89 Other viral pneumonia; K56.609 Unspecified intestinal obstruction, unspecified as to partial versus complete obstruction; J96.01 Acute respiratory failure with hypoxia; B37.49 Other urogenital candidiasis; E44.0 Moderate protein-calorie malnutrition; E83.42 Hypomagnesemia; N18.9 Chronic kidney disease, unspecified; I12.9 Hypertensive chronic kidney disease with stage 1 through stage 4 chronic kidney disease, or unspecified chronic kidney disease; E11.22 Type 2 diabetes mellitus with diabetic chronic kidney disease; T38.0X5A Adverse effect of glucocorticoids and synthetic analogues, initial encounter; E11.649 Type 2 diabetes mellitus with hypoglycemia without coma; E78.5 Hyperlipidemia, unspecified; Y92.89 Other specified places as the place of occurrence of the external cause; Z79.899 Other long term (current) drug therapy; R65.20 Severe sepsis without septic shock; Z68.25 Body mass index [BMI] 25.0-25.9, adult; Z79.4 Long term (current) use of insulin
CPT/HCPCS: 36415; 36600; 71045; 74018; 74176; 74250; 76775; 80048; 80053; 81001; 82150; 82728; 82805; 82962; 83605; 83615; 83690; 83735; 83880; 84132; 84443; 85007; 85014; 85018; 85025; 85027; 85045; 85379; 85610; 86141; 86850; 86870; 86880; 86900; 86901; 86905; 86906; 87040; 87086; 87493; 87804; 87880; 93005; 94640; 96361; 96365; 97110; 97116; 97163; 97530; C9113; G0378; J0696; J1100; J1450; J1815; J1956; J2543; J3480; J3490; J7042

== ENCOUNTER 2019-12-12 17:01 | Inpatient (IN) | payer MEDICAID ==
[~2019-12-12] VITALS: Ht 154.9 cm; Wt 49.9 kg
[~2019-12-12 17:01] MED LIST changes: +ASCO10003 PO; +FLUC200T35 PO; +METH4PAK PO; +ZINC220T6 PO
[2019-12-12] MEDS ORDERED: ONDANSETRON HCL 4 MG/2 ML VIAL IV ONE (19:00)
[2019-12-12] MEDS ORDERED: SODIUM CHLORIDE 0.9% 500 ML IV ONE (19:00)
[2019-12-12] MEDS ORDERED: PIPERACILLIN-TAZOB 3.375GM 100 ML IV ONE (21:15)
[2019-12-12 22:40] LABS: Basophils # (auto) 0.1 10 ^3/uL (0-0.2); Eosinophils # (auto) 0 10 ^3/uL (0-0.8); Mean Corpuscular Hemoglobin 26.1 pg (28.0-32.0)
[2019-12-12 22:43] LABS: Basophils % (auto) 0.2 % (0.0-2.0); Eosinophils % (auto) 0.1 % (0.0-7.0); Hematocrit 47.1 % (36.0-46.0); Hemoglobin 13.8 g/dL (12.2-16.2); Lymphocytes # (auto) 1.2 10 ^3/uL (0.4-5.4); Lymphocytes % (auto) 4.1 % (10.0-50.0); Mean Corpuscular Hgb Conc. 29.3 g/dL (32.0-36.0); Monocytes # (auto) 0.8 10 ^3/uL (0-1.3); Monocytes % (auto) 2.9 % (0.0-12.0); Neutrophils # (auto) 26.9 10 ^3/uL (1.6-8.6); Neutrophils % (auto) 92.7 % (37.0-80.0); Nucleated Red Blood Cells % 0.1 %; Platelet Count (auto) 202 10^3/uL (140-450); Red Blood Cells 5.29 10^6/uL (4.0-5.20)
[2019-12-12 22:47] LABS: Red Cell Distribution Width 33.4 % (11.8-14.3)
[2019-12-12 22:57] LABS: Potassium 3.3 mmol/L (3.5-5.1)
[2019-12-12 23:03] LABS: Lactic Acid w/Reflex 5.5 mmol/L (0.4-2.0)
[2019-12-12 23:05] LABS: Albumin 3.7 g/dL (3.4-5.0); BUN/Creatinine Ratio 31.4; Bilirubin, Total 0.5 mg/dL (0.2-1.0); Calcium 8.7 mg/dL (8.5-10.1); Total Protein 7.2 g/dL (6.4-8.2)
[2019-12-13] MEDS ORDERED: VANCOMYCIN 1GM/250ML 250 ML IV ONE (01:00)
[2019-12-13] MEDS ORDERED: AMIODARONE HCL 150 MG in D5W 5% 100 ML IV ONE (02:00)
[2019-12-13] MEDS ORDERED: AMIODARONE HCL (50 MG/ ML) 3 ML VIAL IV ONE (02:05)
[2019-12-13] MEDS ORDERED: AMIODARONE 450mg/250ml AE 250 ML IV SCH ×2 (02:05→08:05)
[2019-12-13] MEDS ORDERED: SODIUM CHLORIDE 0.9% 1,000 ML IV ONE ×2 (02:15)
[2019-12-13] MEDS ORDERED: ONDANSETRON HCL 4 MG/2 ML VIAL IV ONE (02:45)
[2019-12-13] MEDS ORDERED: MORPHINE SULF INJ 2 MG/ML SYRINGE 1ML IV PRN (02:45)
[2019-12-13] MEDS ORDERED: DEXTROSE (50%) 50ML SYRG IV PRN (02:45)
[2019-12-13] MEDS ORDERED: MORPHINE SULFATE 4 MG/ML SYR/VIAL IV PRN (02:45)
[2019-12-13] MEDS ORDERED: PANTOPRAZOLE 40 MG/10 ML VIAL INJ IV ONE (02:45)
[2019-12-13] MEDS ORDERED: SODIUM CHLORIDE 0.9% 1,000 ML IV SCH (02:45)
[2019-12-13] MEDS ORDERED: VANCOMYCIN PER PHARMACY 0 MG IV SCH (02:45)
[2019-12-13] MEDS ORDERED: NITROGLYCERIN 0.4 MG SL TAB SL PRN (02:45)
[2019-12-13] MEDS ORDERED: ONDANSETRON HCL 4 MG/2 ML VIAL IV PRN (02:45)
[2019-12-13] MEDS ORDERED: POTASSIUM CHL 20MEQ/100ML 100 ML IV ONE (02:45)
[2019-12-13] MEDS ORDERED: metroNIDAZOLE 500MG/100ML 100 ML IV SCH (02:45)
[2019-12-13] MEDS ORDERED: InsuLIN REG 1unit/0.01ml Soln (100units/ml) SC SCH (06:00)
[2019-12-13] MEDS ORDERED: PIPERACILLIN-TAZOB 3.375GM 100 ML IV SCH (06:00)
[2019-12-13] MEDS ORDERED: ACCU-CHEK COMFORT CURVE STRIP VI SCH (06:00)
[2019-12-13 07:00] VITALS: BP 56/33
[2019-12-13] MEDS ORDERED: DEXTROSE 50% SYRINGE 100 ML IV ONE (08:05)
[2019-12-13] MEDS ORDERED: PANTOPRAZOLE 40 MG/10 ML VIAL INJ IV SCH (10:00)
[2019-12-13] MEDS ORDERED: SODIUM BICARBONATE 8.4% INJ 50ML SYRINGE IV ONE (14:42)
[2019-12-13] MEDS ORDERED: EPINEPHrine HCL 1 MG/10 ML SYRG IV ONE (14:42)
[2019-12-13] MEDS ORDERED: CALCIUM CHLOR(10%) 100MG/ML 10ML SYRINGE IV ONE (14:42)
== END 2019-12-13 08:10 | disposition expired | DRG 720 ==
LOC: ER 17:01 → TELE 17:02
PROVIDERS: ADMIT Nurse Practitioner; ATTEND Internal Medicine Pulmonary Disease
PROC: 5A12012 Performance of Cardiac Output, Single, Manual (ICD-10-PCS; principal; 2019-12-13)
PROC: 0BH17EZ Insertion of Endotracheal Airway into Trachea, Via Natural or Artificial Opening (ICD-10-PCS; 2019-12-13)
DX: A41.9 Sepsis, unspecified organism (principal); I46.9 Cardiac arrest, cause unspecified; J12.89 Other viral pneumonia; K29.60 Other gastritis without bleeding; K56.609 Unspecified intestinal obstruction, unspecified as to partial versus complete obstruction; R79.89 Other specified abnormal findings of blood chemistry; I48.91 Unspecified atrial fibrillation; N17.0 Acute kidney failure with tubular necrosis; K21.9 Gastro-esophageal reflux disease without esophagitis; E11.649 Type 2 diabetes mellitus with hypoglycemia without coma; Z20.828 Contact with and (suspected) exposure to other viral communicable diseases; Z83.3 Family history of diabetes mellitus; Z82.49 Family history of ischemic heart disease and other diseases of the circulatory system; Z66 Do not resuscitate; Z86.19 Personal history of other infectious and parasitic diseases
CPT/HCPCS: 36415; 71045; 71250; 74176; 80053; 82962; 83605; 83735; 83880; 84484; 85025; 87040; 87070; 87426; 87804; 87880; 92950; 93005; C9113; G0378; J2405; J2543; J3480; J3490; J7060